=== PATIENT | male | born 1985 | race American Indian/Alaskan Native ===

== ENCOUNTER 2018-06-28 11:47 | Inpatient (IN) | payer MEDICAID ==
--- NOTE | 2018-06-28 11:51 | ED PDOC ---
Arrival/HPI <Julio Reynaga - Last Filed: 06/28/18 14:11> - General Historian: Patient - History of Present Illness Narrative History of Present Illness (Text): 06/28/18 11:51 Patient is a 32 yo homeless male with T1DM who presents with nausea and vomiting for the past 2 days. EMS reports that blood glucose reading is 'high." Patient lives at a snf. He says he has not been able to tolerate PO intake for the past 2 days. He feels thirsty and is urinating frequently. He does not check his blood glucose at home. He administers insulin 70/30 twice daily. He states he has been hospitalized for diabetes/DKA in the past. He endorses subjective fevers and chills. He has had a 15 lb unintentional weight loss over the past month. He also endorses diarrhea and heart racing for the past 2 days. Denies abdominal pain. Time/Duration: < week Symptom Onset: Gradual Symptom Course: Worsening <Fabienne Lizama - Last Filed: 06/28/18 14:27> - General Chief Complaint: High Blood Sugar Time Seen by Provider: 06/28/18 11:50 Past Medical History - Provider Review Nursing Documentation Reviewed: Yes Primary Care Provider: Fred Mahan <Fabienne Lizama - Last Filed: 06/28/18 14:27> Family/Social History - Physician Review Nursing Documentation Reviewed: Yes Family/Social History: Unknown Family HX Smoking Status: Never Smoked Hx Alcohol Use: No Hx Substance Use: No <Fabienne Lizama - Last Filed: 06/28/18 14:27> Allergies/Home Meds <Julio Reynaga - Last Filed: 06/28/18 14:11> <Fabienne Lizama - Last Filed: 06/28/18 14:27> Allergies/Adverse Reactions: Allergies No Known Allergies Allergy (Verified 06/28/18 11:51) Home Medications: Home Meds Medication Instructions Recorded Confirmed Insulin Lispro Mix 75/25 [HumaLOG 18 units SC QPM 06/28/18 06/28/18 Mix 75/25] Insulin Lispro Mix 75/25 [HumaLOG 22 unit SC QAM 06/28/18 06/28/18 Mix 75/25] Review of Systems - Review of Systems Constitutional: Weight Change, Fevers Eyes: absent: Vision Changes ENT: absent: Hearing Changes, Tinnitus Respiratory: absent: SOB, Cough Cardiovascular: Palpitations. absent: Chest Pain Gastrointestinal: Diarrhea, Nausea, Vomiting. absent: Abdominal Pain, Constipation, Hematochezia Genitourinary Male: absent: Dysuria, Hematuria Musculoskeletal: absent: Arthralgias, Myalgias Skin: Pruritis, Skin Lesions (round patches on arms, intermittently pruritic) Neurological: absent: Headache, Dizziness, Focal Weakness Endocrine: absent: Diaphoresis Hemo/Lymphatic: absent: Adenopathy <Fabienne Lizama - Last Filed: 06/28/18 14:27> Physical Exam Vital Signs Temp Pulse Resp BP Pulse Ox 06/28/18 11:47 98.0 F 102 H 16 106/67 99 <Julio Reynaga - Last Filed: 06/28/18 14:11> Vital Signs Reviewed: Yes Temperature: Afebrile Blood Pressure: Normal Pulse: Tachycardic Respiratory Rate: Normal Appearance: Positive for: Comfortable, Ill-Appearing Pain Distress: None Mental Status: Positive for: Alert and Oriented X 3 - Systems Exam Head: Present: Atraumatic, Normocephalic Pupils: Present: PERRL Extroacular Muscles: Present: EOMI Conjunctiva: Present: Normal Mouth: Present: Dry Neck: Present: Normal Range of Motion. No: Lymphadenopathy Respiratory/Chest: Present: Clear to Auscultation, Good Air Exchange Cardiovascular: Present: Normal S1, S2, Tachycardic. No: Murmurs Abdomen: No: Tenderness, Distention, Peritoneal Signs Back: Present: Normal Inspection Upper Extremity: Present: NORMAL PULSES, Other (dry jamil flat patches on UE b/l, no bleeding/drainage) Lower Extremity: Present: Normal Inspection, Neurovascularly Intact Neurological: Present: GCS=15, CN II-XII Intact, Speech Normal, Motor Func Grossly Intact, Normal Sensory Function Skin: Present: Warm, Dry, Normal Color Lymphatic: No: Cervical Adenopathy Psychiatric: Present: Alert, Oriented x 3, Normal Insight, Normal Concentration, Normal Affect, Normal Mood <Fabienne Lizama - Last Filed: 06/28/18 14:27> Medical Decision Making ED Course and Treatment: 06/28/18 14:[address] Weller(medical service) who accepts patient onto her service. Discussed clinical case with Dr. Edge(intensivost) who will come down and evaluate patient. - Lab Interpretations Lab Results: pCO2 40 mm/Hg (35-45) 06/28/18 12:20 pO2 89.0 mm/Hg (80-100) 06/28/18 12:20 HCO3 21.6 mmol/L (21-28) 06/28/18 12:20 ABG pH 7.34 (7.35-7.45) L 06/28/18 12:20 ABG Total CO2 22.8 mmol.L (22-28) 06/28/18 12:20 ABG O2 Saturation 98.4 % (95-98) H 06/28/18 12:20 ABG Base Excess -3.9 mmol/L (-2.0-3.0) L 06/28/18 12:20 ABG Potassium 4.1 mmol/L (3.6-5.2) 06/28/18 12:20 Sodium 141.0 mmol/L (132-148) 06/28/18 12:20 Chloride 100.0 mmol/L (98-107) 06/28/18 12:20 Glucose 629 mg/dl (75-110) H* 06/28/18 12:20 Lactate 2.9 mmol/L (0.7-2.1) H 06/28/18 12:20 FiO2 21.0 % 06/28/18 12:20 Crit Value Called To Dl whitt md 06/28/18 12:20 Crit Value Called By Héctor sargent 06/28/18 12:20 Blood Gas Notified Time 1224 06/28/18 12:20 Total Bilirubin 0.4 mg/dL (0.2-1.3) 06/28/18 12:34 AST 25 U/L (17-59) 06/28/18 12:34 ALT 27 U/L (7-56) 06/28/18 12:34 Alkaline Phosphatase 65 U/L (38-126) 06/28/18 12:34 Total Protein 7.0 g/dL (5.8-8.3) 06/28/18 12:34 Albumin 4.5 g/dL (3.0-4.8) 06/28/18 12:34 Globulin 2.5 gm/dL 06/28/18 12:34 Albumin/Globulin Ratio 1.8 (1.1-1.8) 06/28/18 12:34 Urine Color Yellow (YELLOW) 06/28/18 14:00 Urine Appearance Clear (CLEAR) 06/28/18 14:00 Urine pH 6.0 (4.7-8.0) 06/28/18 14:00 Ur Specific Reserve 1.015 (1.005-1.035) 06/28/18 14:00 Urine Protein 30 mg/dL (<30 mg/dL) H 06/28/18 14:00 Urine Glucose (UA) >=1000 mg/dL (NEGATIVE) 06/28/18 14:00 Urine Ketones 40 mg/dL (NEGATIVE) H 06/28/18 14:00 Urine Blood Small (NEGATIVE) H 06/28/18 14:00 Urine Nitrate Negative (NEGATIVE) 06/28/18 14:00 Urine Bilirubin Negative (NEGATIVE) 06/28/18 14:00 Urine Urobilinogen 0.2 E.U./dL (<1 E.U./dL) 06/28/18 14:00 Ur Leukocyte Esterase Negative [place]/uL (NEGATIVE) 06/28/18 14:00 - Medication Orders Current Medication Orders: Dextrose (Dextrose 50% Inj) 0 ml IV STAT PRN; Protocol PRN Reason: Hypoglycemia Protocol Dextrose (Dextrose 5% In Water 1000 Ml) 1,000 mls @ 0 mls/hr IV .Q0M PRN; Protocol PRN Reason: Hypoglycemia Protocol Insulin Human Regular 100 (units/ Sodium Chloride) 100 mls @ 1 mls/hr IV .Q24H PRN; Protocol PRN Reason: TITRATE PER MD ORDER Discontinued Medications Sodium Chloride (Sodium Chloride 0.9%) 1,000 mls @ 999 mls/hr IV .Q1H1M STA Stop: 06/28/18 13:09 Last Admin: 06/28/18 12:21 Dose: 999 mls/hr eMAR Start Stop Document 06/28/18 12:21 BB (Rec: 06/28/18 12:32 BB [id number]) Intravenous Solution Start Date 06/28/18 Start Time 12:32 Insulin Human Regular (Humulin R) 10 units SC STAT STA Stop: 06/28/18 12:10 Last Admin: 06/28/18 12:20 Dose: 10 unit MAR Blood Glucose Document 06/28/18 12:20 BB (Rec: 06/28/18 12:21 BB [id number]) Blood Glucose Finger Stick Blood Glucose (70-120) 500 Subcutaneous Administrations Document 06/28/18 12:20 BB (Rec: 06/28/18 12:21 BB [id number]) Injection Site MAR Injection Site Left Arm Charges for Administration # of Subcutaneous Administrations 1 <YoelVinnie oscaryl - Last Filed: 06/28/18 14:11> ED Course and Treatment: 06/28/18 12:14 IVF, insulin Labs, EKG 06/28/18 12:15 POC glucose >500 06/28/18 13:30 Anion gap 20. Will start insulin drip. 06/28/18 13:45 Spoke to hospitalist. Requested on-call doctor to be contacted for admission. Paged Dr. Weller. 06/28/18 14:06 ICU consulted- Dr. Edge. 06/28/18 14:16 Dr. Weller accepts patient for admission. 06/28/18 14:26 Patient accepted to ICU. Re-evaluation Time: 14:27 Reassessment Condition: Re-examined, Improving,but remains with symptoms - Lab Interpretations I have reviewed the lab results: Yes Interpretation: Abnormal lab values - EKG Interpretation EKG Interpretation (Text): 06/28/18 12:15 NSR, mildly peaked T waves Interpreted by ED Physician: Yes Type: 12 lead EKG Comparison: No previous EKG avail. <Fabienne Lizama - Last Filed: 06/28/18 14:27> Disposition/Present on Arrival - Disposition Have Diagnosis and Disposition been Completed?: Yes Disposition Time: 14:14 Patient Plan: ICU <YoeldayneJulio - Last Filed: 06/28/18 14:11> - Present on Arrival Any Indicators Present on Arrival: Yes History of DVT/PE: No History of Uncontrolled Diabetes: Yes Urinary Catheter: No History of Decub. Ulcer: No History Surgical Site Infection Following: None - Disposition Have Diagnosis and Disposition been Completed?: Yes Patient Plan: ICU <Fabienne Lizama - Last Filed: 06/28/18 14:27> - Disposition Diagnosis: DKA (diabetic ketoacidoses) Disposition: HOSPITALIZED Patient Problems: Current Active Problems Problem Status Onset DKA (diabetic ketoacidoses) Acute Condition: GUARDED Referrals: Fred Mahan MD [Primary Care Provider] - Follow up with primary Forms: Likeeds (Colombian)
[2018-06-28] MEDS ORDERED: Insulin Regular 1 UNITS/0.01 ML ML SC STA (12:09)
[2018-06-28] MEDS ORDERED: Sodium Chloride 0.9% 1,000 ML IV STA (12:09)
[2018-06-28] MEDS ORDERED: Dextrose 50% SYRINGE Inj (50 ml) IV PRN (12:09)
[2018-06-28 12:25] LABS: ARTERIAL BLOOD GAS HCO3 21.6 mmol/L (21-28); ARTERIAL BLOOD GAS O2 SAT 98.4 % (95-98); ARTERIAL BLOOD GAS PCO2 40 mm/Hg (35-45); ARTERIAL BLOOD GAS PH 7.34 (7.35-7.45); ARTERIAL BLOOD GAS TCO2 22.8 mmol.L (22-28)
[2018-06-28 13:00] LABS: BASO # 0.01 K/mm3 (0.0-2.0); BASO % 0.1 % (0.0-3.0); EOS % 0.1 % (1.5-5.0); HEMOGLOBIN 11.9 g/dL (14.0-18.0); LYMPH # 1.6 (1.2-3.4); LYMPH % 19.4 % (22.0-35.0); MEAN CELL VOLUME 85.4 fl (80.0-105.0); MEAN CORPUSCULAR HGB CONC 32.8 g/dl (31.0-37.0); MEAN PLATELET VOLUME 8.5 fl (7.0-11.0); MONO # 0.4 (0.1-0.6); RBC 4.25 10^6/uL (3.5-6.1); RED CELL DISTRIBUTION WIDTH 12.8 % (11.5-14.5); WHITE BLOOD COUNT 8.4 10^3/uL (4.5-11.0)
[2018-06-28 13:21] LABS: ALB/GLOB RATIO 1.8 (1.1-1.8); ALBUMIN 4.5 g/dL (3.0-4.8); ALT/SGPT 27 U/L (7-56); AST/SGOT 25 U/L (17-59); BLOOD UREA NITROGEN 36 mg/dL (7-21); CALCIUM 10.1 mg/dL (8.4-10.5); GFR NON-AFRICAN AMERICAN > 60
[2018-06-28] MEDS ORDERED: Insulin Regular 100 UNITS in Sodium Chloride 0.9% 99 ML IV PRN (13:31)
[2018-06-28 14:07] LABS: URINE BILIRUBIN NEGATIVE (NEGATIVE); URINE BLOOD SMALL (NEGATIVE); URINE GLUCOSE (UA) >=1000 mg/dL (NEGATIVE); URINE LEUKOCYTE ESTERASE NEGATIVE Leu/uL (NEGATIVE); URINE PROTEIN 30 mg/dL (<30 mg/dL); URINE UROBILINOGEN 0.2 E.U./dL (<1 E.U./dL)
[2018-06-28 14:09] LABS: URINE APPEARANCE CLEAR (CLEAR); URINE COLOR YELLOW (YELLOW)
[2018-06-28 14:23] LABS: URINE BACTERIA SMALL /hpf; URINE WBC 0 - 2 /hpf (0-6)
[2018-06-28 14:28] LABS: BARBITURATES, UR NEGATIVE (NEGATIVE); BENZODIAZEPINES, UR NEGATIVE (NEGATIVE); OPIATES, UR NEGATIVE (NEGATIVE); PHENCYCLIDINE, UR NEGATIVE (NEGATIVE)
[2018-06-28] MEDS ORDERED: Sodium Chloride 0.9% 1,000 ML IV SCH (16:00)
[2018-06-28 16:49] LABS: VENOUS BLOOD GAS BASE EXCESS 9.5 mmol/L (0.0-2.0); VENOUS BLOOD GAS PO2 25 mm/Hg (30-55)
[2018-06-28 17:24] LABS: BLOOD UREA NITROGEN 34 mg/dL (7-21); CALCIUM 9.5 mg/dL (8.4-10.5); GFR NON-AFRICAN AMERICAN > 60
[2018-06-28 17:25] VITALS: BMI 21.3
[2018-06-28] MEDS ORDERED: Dextrose 5%/0.9% NS 1,000 ML IV SCH (17:30)
[2018-06-28 19:57] LABS: VENOUS BLOOD GAS BASE EXCESS 7.3 mmol/L (0.0-2.0); VENOUS BLOOD GAS PO2 36 mm/Hg (30-55); VENOUS BLOOD PH 7.38 (7.32-7.43)
[2018-06-28 20:06] LABS: BLOOD UREA NITROGEN 31 mg/dL (7-21); GFR NON-AFRICAN AMERICAN > 60
--- NOTE | 2018-06-28 21:28 | CP.PCM.HP ---
<HeribertoLobo - Last Filed: 06/28/18 21:41> History of Present Illness - History of Present Illness History of Present Illness: Lobo Louis DO PGY1 - Internal Medicine Academic Support Assistant - Hospitalist H&P Patient is a 32M w/ a PMH of DM (unspecified T1 vs T2) who presented to [facility] on [facility] w/ complaints of N/V and dec appetite. Upon presentation patient reported he has been having increased urination and multiple episodes of NBNB emesis over the past 2 days. He reports that 3 days ago he head run out of his insulin. 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 Fajardo in [place] - unable to provide contact in formation or address Present on Admission - Present on Admission Any Indicators Present on Admission: No Review of Systems - Review of Systems All systems: reviewed and no additional remarkable complaints except Review of Systems: as per HPI Past Patient History - Past Social History Smoking Status: Never Smoked - CARDIAC Hx Cardiac Disorders: No - PULMONARY Hx Respiratory Disorders: No - NEUROLOGICAL Hx Neurological Disorder: No - HEENT Other/Comment: Astigmatism - RENAL Hx Chronic Kidney Disease: No - ENDOCRINE/METABOLIC Hx Diabetes Mellitus Type 1: Yes - HEMATOLOGICAL/ONCOLOGICAL Hx Blood Disorders: No - INTEGUMENTARY Hx Dermatological Problems: No - MUSCULOSKELETAL/RHEUMATOLOGICAL Hx Musculoskeletal Disorders: No Hx Falls: No - GASTROINTESTINAL Hx Gastrointestinal Disorders: No - GENITOURINARY/GYNECOLOGICAL Hx Genitourinary Disorders: No - PSYCHIATRIC Hx Psychophysiologic Disorder: No Hx Substance Use: No - SURGICAL HISTORY Hx Surgeries: No Meds Allergies/Adverse Reactions: Allergies Allergy/AdvReac Type Severity Reaction Status Date / Time No Known Allergies Allergy Verified 06/28/18 11:51 Physical Exam - Constitutional Appears: Well, Non-toxic, No Acute Distress - Head Exam Head Exam: ATRAUMATIC, NORMOCEPHALIC - Eye Exam Eye Exam: EOMI, Normal appearance, PERRL - Respiratory Exam Respiratory Exam: Clear to Auscultation Bilateral, NORMAL BREATHING PATTERN - Cardiovascular Exam Cardiovascular Exam: REGULAR RHYTHM. absent: Systolic Murmur - GI/Abdominal Exam GI & Abdominal Exam: Normal Bowel Sounds, Soft. absent: Tenderness - Extremities Exam Extremities exam: Positive for: normal inspection. Negative for: pedal edema, pedal pulses present - Back Exam Back exam: absent: CVA tenderness (L), CVA tenderness (R) - Neurological Exam Neurological exam: Alert, CN II-XII Intact, Oriented x3 - Psychiatric Exam Psychiatric exam: Normal Affect, Normal Mood - Skin Skin Exam: Dry, Intact, Normal Color, Warm Results - Vital Signs Recent Vital Signs: Last Vital Signs Temp 97.8 F 06/28/18 17:09 Pulse 103 H 06/28/18 18:40 Resp 16 06/28/18 18:40 BP 135/104 H 06/28/18 18:00 Pulse Ox 100 06/28/18 18:40 - Labs Result Diagrams: 06/28/18 12:34 06/28/18 19:45 Labs: Laboratory Results - last 24 hr 06/28/18 06/28/18 06/28/18 11:58 12:20 12:34 WBC 8.4 RBC 4.25 Hgb 11.9 L Hct 36.3 L MCV 85.4 MCH 28.0 MCHC 32.8 RDW 12.8 Plt Count 254 MPV 8.5 Neut % (Auto) 75.4 H Lymph % (Auto) 19.4 L [place] % (Auto) 5.0 Eos % (Auto) 0.1 L Baso % (Auto) 0.1 Lymph # (Auto) 1.6 [place] # (Auto) 0.4 Eos # (Auto) 0.0 Baso # (Auto) 0.01 Absolute Neuts (auto) 6.30 pCO2 40 pO2 89.0 HCO3 21.6 ABG pH 7.34 L ABG Total CO2 22.8 ABG O2 Saturation 98.4 H ABG Base Excess -3.9 L ABG Potassium 4.1 VBG pH VBG pCO2 VBG HCO3 VBG Total CO2 VBG O2 Sat (Calc) VBG Base Excess VBG Potassium Sodium 141.0 Chloride 100.0 Glucose 629 H* Lactate 2.9 H FiO2 21.0 Crit Value Called To Dl whitt md Crit Value Called By Héctor sargent Blood Gas Notified Time 1224 Potassium Carbon Dioxide Anion Gap BUN Creatinine Est GFR ( Amer) Est GFR (Non-Af Amer) POC Glucose (mg/dL) > 500 H* Random Glucose Calcium Phosphorus Magnesium Total Bilirubin AST ALT Alkaline Phosphatase Total Protein Albumin Globulin Albumin/Globulin Ratio Arterial Blood Potassium 4.1 Venous Blood Potassium Urine Color Urine Appearance Urine pH Ur Specific [place] Urine Protein Urine Glucose (UA) Urine Ketones Urine Blood Urine Nitrate Urine Bilirubin Urine Urobilinogen Ur Leukocyte Esterase Urine RBC Urine WBC Ur Epithelial Cells Urine Bacteria Urine Opiates Screen Urine Methadone Screen Ur Barbiturates Screen Ur Phencyclidine Scrn Ur Amphetamines Screen U Benzodiazepines Scrn U Oth Cocaine Metabols U Cannabinoids Screen Alcohol, Quantitative B-Hydroxybutyrate 06/28/18 06/28/18 06/28/18 12:34 12:34 14:00 WBC RBC Hgb Hct MCV MCH MCHC RDW Plt Count MPV Neut % (Auto) Lymph % (Auto) [place] % (Auto) Eos % (Auto) Baso % (Auto) Lymph # (Auto) [place] # (Auto) Eos # (Auto) Baso # (Auto) Absolute Neuts (auto) pCO2 pO2 HCO3 ABG pH ABG Total CO2 ABG O2 Saturation ABG Base Excess ABG Potassium VBG pH VBG pCO2 VBG HCO3 VBG Total CO2 VBG O2 Sat (Calc) VBG Base Excess VBG Potassium Sodium 140 Chloride 97 L Glucose Lactate FiO2 Crit Value Called To Crit Value Called By Blood Gas Notified Time Potassium 5.0 Carbon Dioxide 23 Anion Gap 25 H BUN 36 H Creatinine 1.1 Est GFR ( Amer) > 60 Est GFR (Non-Af Amer) > 60 POC Glucose (mg/dL) Random Glucose 633 H* Calcium 10.1 Phosphorus 5.0 H Magnesium 2.0 Total Bilirubin 0.4 AST 25 ALT 27 Alkaline Phosphatase 65 Total Protein 7.0 Albumin 4.5 Globulin 2.5 Albumin/Globulin Ratio 1.8 Arterial Blood Potassium Venous Blood Potassium Urine Color Yellow Urine Appearance Clear Urine pH 6.0 Ur Specific [place] 1.015 Urine Protein 30 H Urine Glucose (UA) >=1000 Urine Ketones 40 H Urine Blood Small H Urine Nitrate Negative Urine Bilirubin Negative Urine Urobilinogen 0.2 Ur Leukocyte Esterase Negative Urine RBC 5 - 10 H Urine WBC 0 - 2 Ur Epithelial Cells None Urine Bacteria Small Urine Opiates Screen Urine Methadone Screen Ur Barbiturates Screen Ur Phencyclidine Scrn Ur Amphetamines Screen U Benzodiazepines Scrn U Oth Cocaine Metabols U Cannabinoids Screen Alcohol, Quantitative < 10 B-Hydroxybutyrate 4.39 H 06/28/18 06/28/18 06/28/18 14:00 14:30 15:34 WBC RBC Hgb Hct MCV MCH MCHC RDW Plt Count MPV Neut % (Auto) Lymph % (Auto) [place] % (Auto) Eos % (Auto) Baso % (Auto) Lymph # (Auto) [place] # (Auto) Eos # (Auto) Baso # (Auto) Absolute Neuts (auto) pCO2 pO2 HCO3 ABG pH ABG Total CO2 ABG O2 Saturation ABG Base Excess ABG Potassium VBG pH VBG pCO2 VBG HCO3 VBG Total CO2 VBG O2 Sat (Calc) VBG Base Excess VBG Potassium Sodium Chloride Glucose Lactate FiO2 Crit Value Called To Crit Value Called By Blood Gas Notified Time Potassium Carbon Dioxide Anion Gap BUN Creatinine Est GFR ( Amer) Est GFR (Non-Af Amer) POC Glucose (mg/dL) 442 H* 357 H Random Glucose Calcium Phosphorus Magnesium Total Bilirubin AST ALT Alkaline Phosphatase Total Protein Albumin Globulin Albumin/Globulin Ratio Arterial Blood Potassium Venous Blood Potassium Urine Color Urine Appearance Urine pH Ur Specific [place] Urine Protein Urine Glucose (UA) Urine Ketones Urine Blood Urine Nitrate Urine Bilirubin Urine Urobilinogen Ur Leukocyte Esterase Urine RBC Urine WBC Ur Epithelial Cells Urine Bacteria Urine Opiates Screen Negative Urine Methadone Screen Negative Ur Barbiturates Screen Negative Ur Phencyclidine Scrn Negative Ur Amphetamines Screen Negative U Benzodiazepines Scrn Negative U Oth Cocaine Metabols Negative U Cannabinoids Screen Positive H Alcohol, Quantitative B-Hydroxybutyrate 06/28/18 06/28/18 06/28/18 16:32 16:44 16:56 WBC RBC Hgb Hct MCV MCH MCHC RDW Plt Count MPV Neut % (Auto) Lymph % (Auto) [place] % (Auto) Eos % (Auto) Baso % (Auto) Lymph # (Auto) [place] # (Auto) Eos # (Auto) Baso # (Auto) Absolute Neuts (auto) pCO2 pO2 25 L HCO3 ABG pH ABG Total CO2 ABG O2 Saturation ABG Base Excess ABG Potassium VBG pH 7.40 VBG pCO2 59.0 VBG HCO3 36.5 H VBG Total CO2 38.3 H VBG O2 Sat (Calc) 60.0 VBG Base Excess 9.5 H VBG Potassium 4.1 Sodium 141.0 Chloride 101.0 Glucose 259 H Lactate 2.1 FiO2 21.0 Crit Value Called To Crit Value Called By Blood Gas Notified Time Potassium Carbon Dioxide Anion Gap BUN Creatinine Est GFR ( Amer) Est GFR (Non-Af Amer) POC Glucose (mg/dL) 264 H 227 H Random Glucose Calcium Phosphorus Magnesium Total Bilirubin AST ALT Alkaline Phosphatase Total Protein Albumin Globulin Albumin/Globulin Ratio Arterial Blood Potassium Venous Blood Potassium 4.1 Urine Color Urine Appearance Urine pH Ur Specific [place] Urine Protein Urine Glucose (UA) Urine Ketones Urine Blood Urine Nitrate Urine Bilirubin Urine Urobilinogen Ur Leukocyte Esterase Urine RBC Urine WBC Ur Epithelial Cells Urine Bacteria Urine Opiates Screen Urine Methadone Screen Ur Barbiturates Screen Ur Phencyclidine Scrn Ur Amphetamines Screen U Benzodiazepines Scrn U Oth Cocaine Metabols U Cannabinoids Screen Alcohol, Quantitative B-Hydroxybutyrate 06/28/18 06/28/18 06/28/18 17:00 17:47 18:56 WBC RBC Hgb Hct MCV MCH MCHC RDW Plt Count MPV Neut % (Auto) Lymph % (Auto) [place] % (Auto) Eos % (Auto) Baso % (Auto) Lymph # (Auto) [place] # (Auto) Eos # (Auto) Baso # (Auto) Absolute Neuts (auto) pCO2 pO2 HCO3 ABG pH ABG Total CO2 ABG O2 Saturation ABG Base Excess ABG Potassium VBG pH VBG pCO2 VBG HCO3 VBG Total CO2 VBG O2 Sat (Calc) VBG Base Excess VBG Potassium Sodium 141 Chloride 102 Glucose Lactate FiO2 Crit Value Called To Crit Value Called By Blood Gas Notified Time Potassium 3.9 Carbon Dioxide 30 Anion Gap 14 BUN 34 H Creatinine 0.9 Est GFR ( Amer) > 60 Est GFR (Non-Af Amer) > 60 POC Glucose (mg/dL) 156 H 153 H Random Glucose 168 H Calcium 9.5 Phosphorus Magnesium Total Bilirubin AST ALT Alkaline Phosphatase Total Protein Albumin Globulin Albumin/Globulin Ratio Arterial Blood Potassium Venous Blood Potassium Urine Color Urine Appearance Urine pH Ur Specific [place] Urine Protein Urine Glucose (UA) Urine Ketones Urine Blood Urine Nitrate Urine Bilirubin Urine Urobilinogen Ur Leukocyte Esterase Urine RBC Urine WBC Ur Epithelial Cells Urine Bacteria Urine Opiates Screen Urine Methadone Screen Ur Barbiturates Screen Ur Phencyclidine Scrn Ur Amphetamines Screen U Benzodiazepines Scrn U Oth Cocaine Metabols U Cannabinoids Screen Alcohol, Quantitative B-Hydroxybutyrate 06/28/18 06/28/18 06/28/18 19:45 19:45 20:15 WBC RBC Hgb Hct MCV MCH MCHC RDW Plt Count MPV Neut % (Auto) Lymph % (Auto) [place] % (Auto) Eos % (Auto) Baso % (Auto) Lymph # (Auto) [place] # (Auto) Eos # (Auto) Baso # (Auto) Absolute Neuts (auto) pCO2 pO2 36 HCO3 ABG pH ABG Total CO2 ABG O2 Saturation ABG Base Excess ABG Potassium VBG pH 7.38 VBG pCO2 58.0 VBG HCO3 34.3 H VBG Total CO2 36.1 H VBG O2 Sat (Calc) 84.2 H VBG Base Excess 7.3 H VBG Potassium 3.7 Sodium 140 140.0 Chloride 101 104.0 Glucose 176 H Lactate 2.1 FiO2 21.0 Crit Value Called To Crit Value Called By Blood Gas Notified Time Potassium 3.8 Carbon Dioxide 31 Anion Gap 11 BUN 31 H Creatinine 1.0 Est GFR ( Amer) > 60 Est GFR (Non-Af Amer) > 60 POC Glucose (mg/dL) 176 H Random Glucose 168 H Calcium 9.0 Phosphorus Magnesium Total Bilirubin AST ALT Alkaline Phosphatase Total Protein Albumin Globulin Albumin/Globulin Ratio Arterial Blood Potassium Venous Blood Potassium 3.7 Urine Color Urine Appearance Urine pH Ur Specific [place] Urine Protein Urine Glucose (UA) Urine Ketones Urine Blood Urine Nitrate Urine Bilirubin Urine Urobilinogen Ur Leukocyte Esterase Urine RBC Urine WBC Ur Epithelial Cells Urine Bacteria Urine Opiates Screen Urine Methadone Screen Ur Barbiturates Screen Ur Phencyclidine Scrn Ur Amphetamines Screen U Benzodiazepines Scrn U Oth Cocaine Metabols U Cannabinoids Screen Alcohol, Quantitative B-Hydroxybutyrate Assessment & Plan - Assessment and Plan (Free Text) Assessment: Patient is 32M who presented to [facility] on [facility] w/ 2 days of complaints of decreased appetite, n/v, polyuria, polydypsia after running out of his insulin 3 days ago. Patient admitted for DKA. Plan: DKA (Unspecified Type 1 vs Type 2) AG on presentation 20; Glucose 633 AG closed @ 1700; Upon evaluation 168 Currently on Insulin Drip + D5NS ; has only received 20 units at this itme Has already started diet at time of evaluation Will DC Insulin drip in 2 hours Start Levemir 5 Q 12 DC D5; Start NS POC BG Q2H Follow up w/ outpt pharmacy regarding insulin regimen Endocrinology Consulted, Appreciate Reccs PPX: SCD Patient was seen, examined, and discussed w/ attending Dr. Atul Louis DO PGY1 - Internal Medicine Academic Support Assistant - Date & Time Date: 06/28/18 Time: 21:47 <Neil Pollard - Last Filed: 06/29/18 02:13> Results - Vital Signs Recent Vital Signs: Last Vital Signs Temp 98.5 F 06/29/18 00:00 Pulse 96 H 06/29/18 01:10 Resp 18 06/29/18 01:10 BP 124/77 06/29/18 01:00 Pulse Ox 100 06/29/18 01:10 - Labs Result Diagrams: 06/28/18 12:34 06/29/18 00:02 Labs: Laboratory Results - last 24 hr 06/28/18 06/28/18 06/28/18 11:58 12:20 12:34 WBC 8.4 RBC 4.25 Hgb 11.9 L Hct 36.3 L MCV 85.4 MCH 28.0 MCHC 32.8 RDW 12.8 Plt Count 254 MPV 8.5 Neut % (Auto) 75.4 H Lymph % (Auto) 19.4 L [place] % (Auto) 5.0 Eos % (Auto) 0.1 L Baso % (Auto) 0.1 Lymph # (Auto) 1.6 [place] # (Auto) 0.4 Eos # (Auto) 0.0 Baso # (Auto) 0.01 Absolute Neuts (auto) 6.30 pCO2 40 pO2 89.0 HCO3 21.6 ABG pH 7.34 L ABG Total CO2 22.8 ABG O2 Saturation 98.4 H ABG Base Excess -3.9 L ABG Potassium 4.1 VBG pH VBG pCO2 VBG HCO3 VBG Total CO2 VBG O2 Sat (Calc) VBG Base Excess VBG Potassium Sodium 141.0 Chloride 100.0 Glucose 629 H* Lactate 2.9 H FiO2 21.0 Crit Value Called To Dl whitt md Crit Value Called By Héctor sargent Blood Gas Notified Time 1224 Potassium Carbon Dioxide Anion Gap BUN Creatinine Est GFR ( Amer) Est GFR (Non-Af Amer) POC Glucose (mg/dL) > 500 H* Random Glucose Calcium Phosphorus Magnesium Total Bilirubin AST ALT Alkaline Phosphatase Total Protein Albumin Globulin Albumin/Globulin Ratio Arterial Blood Potassium 4.1 Venous Blood Potassium Urine Color Urine Appearance Urine pH Ur Specific [place] Urine Protein Urine Glucose (UA) Urine Ketones Urine Blood Urine Nitrate Urine Bilirubin Urine Urobilinogen Ur Leukocyte Esterase Urine RBC Urine WBC Ur Epithelial Cells Urine Bacteria Urine Opiates Screen Urine Methadone Screen Ur Barbiturates Screen Ur Phencyclidine Scrn Ur Amphetamines Screen U Benzodiazepines Scrn U Oth Cocaine Metabols U Cannabinoids Screen Alcohol, Quantitative B-Hydroxybutyrate 06/28/18 06/28/18 06/28/18 12:34 12:34 14:00 WBC RBC Hgb Hct MCV MCH MCHC RDW Plt Count MPV Neut % (Auto) Lymph % (Auto) [place] % (Auto) Eos % (Auto) Baso % (Auto) Lymph # (Auto) [place] # (Auto) Eos # (Auto) Baso # (Auto) Absolute Neuts (auto) pCO2 pO2 HCO3 ABG pH ABG Total CO2 ABG O2 Saturation ABG Base Excess ABG Potassium VBG pH VBG pCO2 VBG HCO3 VBG Total CO2 VBG O2 Sat (Calc) VBG Base Excess VBG Potassium Sodium 140 Chloride 97 L Glucose Lactate FiO2 Crit Value Called To Crit Value Called By Blood Gas Notified Time Potassium 5.0 Carbon Dioxide 23 Anion Gap 25 H BUN 36 H Creatinine 1.1 Est GFR ( Amer) > 60 Est GFR (Non-Af Amer) > 60 POC Glucose (mg/dL) Random Glucose 633 H* Calcium 10.1 Phosphorus 5.0 H Magnesium 2.0 Total Bilirubin 0.4 AST 25 ALT 27 Alkaline Phosphatase 65 Total Protein 7.0 Albumin 4.5 Globulin 2.5 Albumin/Globulin Ratio 1.8 Arterial Blood Potassium Venous Blood Potassium Urine Color Yellow Urine Appearance Clear Urine pH 6.0 Ur Specific [place] 1.015 Urine Protein 30 H Urine Glucose (UA) >=1000 Urine Ketones 40 H Urine Blood Small H Urine Nitrate Negative Urine Bilirubin Negative Urine Urobilinogen 0.2 Ur Leukocyte Esterase Negative Urine RBC 5 - 10 H Urine WBC 0 - 2 Ur Epithelial Cells None Urine Bacteria Small Urine Opiates Screen Urine Methadone Screen Ur Barbiturates Screen Ur Phencyclidine Scrn Ur Amphetamines Screen U Benzodiazepines Scrn U Oth Cocaine Metabols U Cannabinoids Screen Alcohol, Quantitative < 10 B-Hydroxybutyrate 4.39 H 06/28/18 06/28/18 06/28/18 14:00 14:30 15:34 WBC RBC Hgb Hct MCV MCH MCHC RDW Plt Count MPV Neut % (Auto) Lymph % (Auto) [place] % (Auto) Eos % (Auto) Baso % (Auto) Lymph # (Auto) [place] # (Auto) Eos # (Auto) Baso # (Auto) Absolute Neuts (auto) pCO2 pO2 HCO3 ABG pH ABG Total CO2 ABG O2 Saturation ABG Base Excess ABG Potassium VBG pH VBG pCO2 VBG HCO3 VBG Total CO2 VBG O2 Sat (Calc) VBG Base Excess VBG Potassium Sodium Chloride Glucose Lactate FiO2 Crit Value Called To Crit Value Called By Blood Gas Notified Time Potassium Carbon Dioxide Anion Gap BUN Creatinine Est GFR ( Amer) Est GFR (Non-Af Amer) POC Glucose (mg/dL) 442 H* 357 H Random Glucose Calcium Phosphorus Magnesium Total Bilirubin AST ALT Alkaline Phosphatase Total Protein Albumin Globulin Albumin/Globulin Ratio Arterial Blood Potassium Venous Blood Potassium Urine Color Urine Appearance Urine pH Ur Specific [place] Urine Protein Urine Glucose (UA) Urine Ketones Urine Blood Urine Nitrate Urine Bilirubin Urine Urobilinogen Ur Leukocyte Esterase Urine RBC Urine WBC Ur Epithelial Cells Urine Bacteria Urine Opiates Screen Negative Urine Methadone Screen Negative Ur Barbiturates Screen Negative Ur Phencyclidine Scrn Negative Ur Amphetamines Screen Negative U Benzodiazepines Scrn Negative U Oth Cocaine Metabols Negative U Cannabinoids Screen Positive H Alcohol, Quantitative B-Hydroxybutyrate 06/28/18 06/28/18 06/28/18 16:32 16:44 16:56 WBC RBC Hgb Hct MCV MCH MCHC RDW Plt Count MPV Neut % (Auto) Lymph % (Auto) [place] % (Auto) Eos % (Auto) Baso % (Auto) Lymph # (Auto) [place] # (Auto) Eos # (Auto) Baso # (Auto) Absolute Neuts (auto) pCO2 pO2 25 L HCO3 ABG pH ABG Total CO2 ABG O2 Saturation ABG Base Excess ABG Potassium VBG pH 7.40 VBG pCO2 59.0 VBG HCO3 36.5 H VBG Total CO2 38.3 H VBG O2 Sat (Calc) 60.0 VBG Base Excess 9.5 H VBG Potassium 4.1 Sodium 141.0 Chloride 101.0 Glucose 259 H Lactate 2.1 FiO2 21.0 Crit Value Called To Crit Value Called By Blood Gas Notified Time Potassium Carbon Dioxide Anion Gap BUN Creatinine Est GFR ( Amer) Est GFR (Non-Af Amer) POC Glucose (mg/dL) 264 H 227 H Random Glucose Calcium Phosphorus Magnesium Total Bilirubin AST ALT Alkaline Phosphatase Total Protein Albumin Globulin Albumin/Globulin Ratio Arterial Blood Potassium Venous Blood Potassium 4.1 Urine Color Urine Appearance Urine pH Ur Specific [place] Urine Protein Urine Glucose (UA) Urine Ketones Urine Blood Urine Nitrate Urine Bilirubin Urine Urobilinogen Ur Leukocyte Esterase Urine RBC Urine WBC Ur Epithelial Cells Urine Bacteria Urine Opiates Screen Urine Methadone Screen Ur Barbiturates Screen Ur Phencyclidine Scrn Ur Amphetamines Screen U Benzodiazepines Scrn U Oth Cocaine Metabols U Cannabinoids Screen Alcohol, Quantitative B-Hydroxybutyrate 06/28/18 06/28/18 06/28/18 17:00 17:47 18:56 WBC RBC Hgb Hct MCV MCH MCHC RDW Plt Count MPV Neut % (Auto) Lymph % (Auto) [place] % (Auto) Eos % (Auto) Baso % (Auto) Lymph # (Auto) [place] # (Auto) Eos # (Auto) Baso # (Auto) Absolute Neuts (auto) pCO2 pO2 HCO3 ABG pH ABG Total CO2 ABG O2 Saturation ABG Base Excess ABG Potassium VBG pH VBG pCO2 VBG HCO3 VBG Total CO2 VBG O2 Sat (Calc) VBG Base Excess VBG Potassium Sodium 141 Chloride 102 Glucose Lactate FiO2 Crit Value Called To Crit Value Called By Blood Gas Notified Time Potassium 3.9 Carbon Dioxide 30 Anion Gap 14 BUN 34 H Creatinine 0.9 Est GFR ( Amer) > 60 Est GFR (Non-Af Amer) > 60 POC Glucose (mg/dL) 156 H 153 H Random Glucose 168 H Calcium 9.5 Phosphorus Magnesium Total Bilirubin AST ALT Alkaline Phosphatase Total Protein Albumin Globulin Albumin/Globulin Ratio Arterial Blood Potassium Venous Blood Potassium Urine Color Urine Appearance Urine pH Ur Specific [place] Urine Protein Urine Glucose (UA) Urine Ketones Urine Blood Urine Nitrate Urine Bilirubin Urine Urobilinogen Ur Leukocyte Esterase Urine RBC Urine WBC Ur Epithelial Cells Urine Bacteria Urine Opiates Screen Urine Methadone Screen Ur Barbiturates Screen Ur Phencyclidine Scrn Ur Amphetamines Screen U Benzodiazepines Scrn U Oth Cocaine Metabols U Cannabinoids Screen Alcohol, Quantitative B-Hydroxybutyrate 06/28/18 06/28/18 06/28/18 19:45 19:45 20:15 WBC RBC Hgb Hct MCV MCH MCHC RDW Plt Count MPV Neut % (Auto) Lymph % (Auto) [place] % (Auto) Eos % (Auto) Baso % (Auto) Lymph # (Auto) [place] # (Auto) Eos # (Auto) Baso # (Auto) Absolute Neuts (auto) pCO2 pO2 36 HCO3 ABG pH ABG Total CO2 ABG O2 Saturation ABG Base Excess ABG Potassium VBG pH 7.38 VBG pCO2 58.0 VBG HCO3 34.3 H VBG Total CO2 36.1 H VBG O2 Sat (Calc) 84.2 H VBG Base Excess 7.3 H VBG Potassium 3.7 Sodium 140 140.0 Chloride 101 104.0 Glucose 176 H Lactate 2.1 FiO2 21.0 Crit Value Called To Crit Value Called By Blood Gas Notified Time Potassium 3.8 Carbon Dioxide 31 Anion Gap 11 BUN 31 H Creatinine 1.0 Est GFR ( Amer) > 60 Est GFR (Non-Af Amer) > 60 POC Glucose (mg/dL) 176 H Random Glucose 168 H Calcium 9.0 Phosphorus Magnesium Total Bilirubin AST ALT Alkaline Phosphatase Total Protein Albumin Globulin Albumin/Globulin Ratio Arterial Blood Potassium Venous Blood Potassium 3.7 Urine Color Urine Appearance Urine pH Ur Specific [place] Urine Protein Urine Glucose (UA) Urine Ketones Urine Blood Urine Nitrate Urine Bilirubin Urine Urobilinogen Ur Leukocyte Esterase Urine RBC Urine WBC Ur Epithelial Cells Urine Bacteria Urine Opiates Screen Urine Methadone Screen Ur Barbiturates Screen Ur Phencyclidine Scrn Ur Amphetamines Screen U Benzodiazepines Scrn U Oth Cocaine Metabols U Cannabinoids Screen Alcohol, Quantitative B-Hydroxybutyrate 06/28/18 06/28/18 06/29/18 20:58 22:02 00:02 WBC RBC Hgb Hct MCV MCH MCHC RDW Plt Count MPV Neut % (Auto) Lymph % (Auto) [place] % (Auto) Eos % (Auto) Baso % (Auto) Lymph # (Auto) [place] # (Auto) Eos # (Auto) Baso # (Auto) Absolute Neuts (auto) pCO2 pO2 HCO3 ABG pH ABG Total CO2 ABG O2 Saturation ABG Base Excess ABG Potassium VBG pH VBG pCO2 VBG HCO3 VBG Total CO2 VBG O2 Sat (Calc) VBG Base Excess VBG Potassium Sodium 137 Chloride 103 Glucose Lactate FiO2 Crit Value Called To Crit Value Called By Blood Gas Notified Time Potassium 4.3 Carbon Dioxide 27 Anion Gap 10 BUN 27 H Creatinine 0.8 Est GFR ( Amer) > 60 Est GFR (Non-Af Amer) > 60 POC Glucose (mg/dL) 152 H 143 H Random Glucose 300 H Calcium 8.9 Phosphorus Magnesium Total Bilirubin AST ALT Alkaline Phosphatase Total Protein Albumin Globulin Albumin/Globulin Ratio Arterial Blood Potassium Venous Blood Potassium Urine Color Urine Appearance Urine pH Ur Specific [place] Urine Protein Urine Glucose (UA) Urine Ketones Urine Blood Urine Nitrate Urine Bilirubin Urine Urobilinogen Ur Leukocyte Esterase Urine RBC Urine WBC Ur Epithelial Cells Urine Bacteria Urine Opiates Screen Urine Methadone Screen Ur Barbiturates Screen Ur Phencyclidine Scrn Ur Amphetamines Screen U Benzodiazepines Scrn U Oth Cocaine Metabols U Cannabinoids Screen Alcohol, Quantitative B-Hydroxybutyrate 06/29/18 06/29/18 06/29/18 00:02 00:10 01:53 WBC RBC Hgb Hct MCV MCH MCHC RDW Plt Count MPV Neut % (Auto) Lymph % (Auto) [place] % (Auto) Eos % (Auto) Baso % (Auto) Lymph # (Auto) [place] # (Auto) Eos # (Auto) Baso # (Auto) Absolute Neuts (auto) pCO2 pO2 120 H HCO3 ABG pH ABG Total CO2 ABG O2 Saturation ABG Base Excess ABG Potassium VBG pH 7.43 VBG pCO2 46.0 VBG HCO3 30.5 H VBG Total CO2 31.9 H VBG O2 Sat (Calc) 99.6 H VBG Base Excess 5.3 H VBG Potassium 4.2 Sodium 137.0 Chloride 105.0 Glucose 317 H Lactate 1.0 FiO2 21.0 Crit Value Called To Crit Value Called By Blood Gas Notified Time Potassium Carbon Dioxide Anion Gap BUN Creatinine Est GFR ( Amer) Est GFR (Non-Af Amer) POC Glucose (mg/dL) 325 H 258 H Random Glucose Calcium Phosphorus Magnesium Total Bilirubin AST ALT Alkaline Phosphatase Total Protein Albumin Globulin Albumin/Globulin Ratio Arterial Blood Potassium Venous Blood Potassium 4.2 Urine Color Urine Appearance Urine pH Ur Specific [place] Urine Protein Urine Glucose (UA) Urine Ketones Urine Blood Urine Nitrate Urine Bilirubin Urine Urobilinogen Ur Leukocyte Esterase Urine RBC Urine WBC Ur Epithelial Cells Urine Bacteria Urine Opiates Screen Urine Methadone Screen Ur Barbiturates Screen Ur Phencyclidine Scrn Ur Amphetamines Screen U Benzodiazepines Scrn U Oth Cocaine Metabols U Cannabinoids Screen Alcohol, Quantitative B-Hydroxybutyrate Attending/Attestation - Attestation I have personally seen and examined this patient.: Yes I have fully participated in the care of the patient.: Yes I have reviewed all pertinent clinical information: Yes Notes (Text): 06/29/18 02:12 Patient was seen when he was in the room # 310-07. Medical record was reviewed. Agree with history,physical examination, assessment and plan.
[2018-06-28] MEDS ORDERED: Insulin Detemir 100 units/ml Vial (Levemir) SC SCH (22:00)
[2018-06-29] MEDS ORDERED: Insulin Lispro 1 UNITS/0.01 ML SC STA (00:20)
[2018-06-29 00:33] LABS: BLOOD UREA NITROGEN 27 mg/dL (7-21); CALCIUM 8.9 mg/dL (8.4-10.5); GFR NON-AFRICAN AMERICAN > 60
[2018-06-29] MEDS ORDERED: Dextrose 5%/0.9% NS 1,000 ML IV SCH (00:47)
[2018-06-29 00:49] LABS: VENOUS BLOOD GAS BASE EXCESS 5.3 mmol/L (0.0-2.0); VENOUS BLOOD GAS PO2 120 mm/Hg (30-55); VENOUS BLOOD PH 7.43 (7.32-7.43)
--- NOTE | 2018-06-29 01:18 | CON ---
DATE OF CONSULTATION: 06/28/2018 HISTORY OF PRESENT ILLNESS: This is a 32-year-old gentleman with history of diabetes mellitus type 1, who was admitted to [facility] ER with complaints of nausea, vomiting, and diarrhea for the last two days. He also reports subjective fever, however, when he measured it, he was normothermic. He denies any sick contacts and any change in his diet recently. He, however, was not able to keep anything down and describes himself as dehydrated. No chills, no sweats. No shortness of breath, no chest pain, no abdominal pain. PAST MEDICAL HISTORY: Diabetes mellitus type 1. MEDICATIONS AT HOME: Aspirin, metformin, and insulin. FAMILY HISTORY: Noncontributory. SOCIAL HISTORY: No alcohol or illicit drug abuse. No tobacco smoking. ALLERGIES: NKDA. REVIEW OF SYSTEMS: Review of 12-organ system other than mentioned in history of present illness is negative. PHYSICAL EXAMINATION: VITAL SIGNS: Blood pressure 119/66, heart rate 98, respiratory rate 18, oxygen saturation 100% on room air. HEENT: Head and neck atraumatic. LUNGS: Clear to auscultation bilaterally. HEART: Regular rate and rhythm, S1 and S2 normal. ABDOMEN: Soft, nontender, nondistended. MUSCULOSKELETAL: No C/C/E. NEURO: The patient moves all extremities spontaneously. SKIN: Moist. PSYCH: The patient is alert, awake, and oriented x3. LABORATORY DATA: WBC 8.4, hemoglobin 11.9, platelet count 254. Sodium 140, potassium 5, chloride 97, carbon dioxide 23, BUN 36, creatinine 1.1, glucose 633, AST 25, ALT 27, total bilirubin 0.4. Urine positive for ketones, glucose, but negative for leukocyte esterase and nitrites. U-tox positive for marijuana. Alcohol less than 10. Lactic acid 2.9. PH 7.34. ASSESSMENT AND PLAN: This is a 32-year-old gentleman who presented with diabetic ketoacidosis in the setting of nausea, vomiting, diarrhea, and substantial dehydration. Whether or not his gastrointestinal symptoms are related to marijuana use is unclear; however, he does not have leukocytosis and he is afebrile. His abdominal exam is absolutely benign. I have low suspicion for infectious process at the present time. We will continue with fluid resuscitation, insulin drip, Accu-Chek every 1 hour, and BMP every 4 hours. Once the anion gap is closed, he will be overlapped with and later switched to longer-acting formulation of subcutaneous insulin. Once his blood glucose drops down below 250, his IV fluids will be switched to D5 containing IV solutions. If his lactic acidosis will not resolve with fluid resuscitation and insulin drip, I will proceed with CAT scan of the abdomen and pelvis. We will trend lactic acid level. ccm time 40 min Chris Edge MD NIKITA
[2018-06-29 05:04] LABS: LDL CHOLESTEROL 66 mg/dL (0-129)
[2018-06-29 05:07] LABS: ALB/GLOB RATIO 1.4 (1.1-1.8); ALBUMIN 3.7 g/dL (3.0-4.8); ALT/SGPT 31 U/L (7-56); AST/SGOT 26 U/L (17-59); BLOOD UREA NITROGEN 22 mg/dL (7-21); CALCIUM 9.1 mg/dL (8.4-10.5); GFR NON-AFRICAN AMERICAN > 60; HDL CHOLESTEROL 53 mg/dL (29-60); LIPASE 73 U/L (23-300)
[2018-06-29] MEDS ORDERED: Magnesium Sulfate 2 gm/50 ml 2 GM/50 ML BAG IVPB ONE (05:30)
--- NOTE | 2018-06-29 06:25 | CON ---
DATE: 06/28/2018 ENDOCRINOLOGY CONSULT LOCATION: ICU 129, room 7. HISTORY OF PRESENT ILLNESS: This is a 32-year-old male with known history of type 1 insulin-dependent diabetes, presenting here with intractable vomiting and associated severe nausea and dyspepsia with vague upper abdominal pains and is now being referred for diabetic evaluation and management. PAST MEDICAL HISTORY: History of type 1 insulin-dependent diabetes who apparently ran out of his insulin regimen over the last few days as noted. He has been diagnosed of type 1 insulin-dependent diabetes since age 6 and is currently using a mixed insulin with Humalog 75/25 with a dose of 22 units every morning and 18 units at dinner time. No recent home glucose monitoring levels have been undertaken, but admits to having hyperglycemic levels with glucose levels over 500 on the day of admission. FAMILY HISTORY: Positive for diabetes and hypertension. SOCIAL HISTORY: The patient has a supportive family. No known substance use. REVIEW OF SYSTEMS: Admits to generalized body weakness with progressive bouts of dizziness and lightheadedness, worse on the day of admission. Also admits to visual blurring and bifrontal headaches. No chest pains or palpitations, but admits to episodic shortness of breath, especially on exertion. His oral intake has been variable with nausea, dyspepsia, and supervening intractable vomiting episodes, with vague upper abdominal pains. Also admits to marked polyuria, nocturia, and polydipsia over the last two to three days prior to admission. PHYSICAL EXAMINATION: GENERAL: Average-built male in no apparent distress. VITAL SIGNS: Blood pressure 150/100; pulse of 90 beats per minute, regular; temperature 98; respirations 20; height is 5 feet 11 inches, weight is 163 pounds. HEENT: Head normocephalic. Eyes anicteric with pink conjunctivae. Funduscopy not possible at this time. Ears, nose, and throat otherwise normal. NECK: Supple. Thyroid gland is normal in size. No carotid bruits or any cervical adenopathy. CARDIOPULMONARY: Some adynamic precordium. S1, S2 are rapid and regular. LUNGS: Clear to auscultation. ABDOMEN: Flat, soft with positive bowel sounds. EXTREMITIES: No peripheral edema. Pulses are +2 bilaterally. LABORATORY DATA: Initial chemistries showed a BUN of 36, sodium 140, potassium 5, chloride 97, CO2 of 23, glucose 633, and creatinine 1.1. His initial fingerstick was over 500 mg/dL. His subsequent glucose levels have ranged from 153 to 176 mg/dL on the insulin drip as noted. His last CO2 is 31. ASSESSMENT: This is a 32-year-old male with recent uncontrolled type 1 insulin-dependent diabetes with recent drug omission, presenting here with hyperosmolar hyperglycemic state and mild ketosis and also concomitant dehydration with prerenal azotemia as noted thereof. PLAN OF MANAGEMENT: We will modify his current insulin regimen, actually safely discontinue the insulin drip as there was only very minimal acidosis on admission that he presented here with hyperosmolar hyperglycemic state as noted. It is quite common to see mild ketosis in the presence of hyperosmolar hyperglycemic state. We will modify his current insulin regimen and actually discontinue the insulin drip infusion as ordered. We will switch him over to a more physiologic basal and bolus insulin drug combination with Levemir to be started at 20 units subcu at bedtime daily to start tonight. We will also add Humalog given as 8 units subcu t.i.d. before meals to start tomorrow morning as ordered. We will modify the coverage scale to obviate hypoglycemia and detailed orders have been given. We will reinforce diabetic education and dietary instructions to include insulin self-administration and home glucose monitoring accordingly. We will continue the vigorous IV hydration as ordered and obtain serial chemistries and supplement accordingly as needed. We will follow. Usha Domingo MD
[2018-06-29] MEDS ORDERED: Potassium Chloride 20 mEq ER Tab PO ONE (08:00)
--- NOTE | 2018-06-29 08:11 | CP.CCUPN ---
<Avelino Mcguire - Last Filed: 06/29/18 10:05> CCU Subjective - Physician Review Subjective (Free Text): PGY-[address] ICU progress note for Dr Fields. Patient this morning stated he felt much better. He's tolerating his diet. Denied cp, abd pain, n/v, fevers, chills, diarrhea, thirst. 06/29/18 08:01 CCU Objective - Vital Signs / Intake & Output Vital Signs (Last 4 hours): Vital Signs Pulse Resp BP Pulse Ox 06/29/18 07:20 88 18 100 06/29/18 07:10 87 17 100 06/29/18 07:00 85 17 132/87 100 06/29/18 06:50 86 15 100 06/29/18 06:40 89 15 100 06/29/18 06:30 87 17 100 06/29/18 06:20 87 18 100 06/29/18 06:10 85 16 100 06/29/18 06:00 87 128/89 100 06/29/18 05:50 83 100 06/29/18 05:40 91 H 15 06/29/18 05:30 87 18 100 06/29/18 05:20 90 15 100 06/29/18 05:10 87 16 100 06/29/18 05:00 90 16 126/83 100 06/29/18 04:50 87 16 100 06/29/18 04:40 85 17 100 06/29/18 04:30 86 16 100 06/29/18 04:20 93 H 14 100 06/29/18 04:10 95 H 14 100 Intake and Output (Last 8hrs): Intake & Output 06/28/18 06/29/18 06/29/18 22:59 06:59 14:59 Intake Total 1963 1553 Output Total 600 Balance 1963 953 Weight 153 lb Intake: IV 1513 1353 Left Forearm 1500 1353 Oral 450 200 Output: Urine 600 Urine, Voided 600 - Physical Exam Head: Positive for: Atraumatic, Normocephalic Pupils: Positive for: PERRL Extroacular Muscles: Positive for: EOMI Conjunctiva: Positive for: Normal Mouth: Positive for: Moist Mucous Membranes Neck: Positive for: Normal Range of Motion. Negative for: Lymphadenopathy Respiratory/Chest: Positive for: Clear to Auscultation, Good Air Exchange Cardiovascular: Positive for: Regular Rate and Rhythm, Normal S1, S2. Negative for: Murmurs, Tachycardic, Bradycardic Abdomen: Positive for: Normal Bowel Sounds. Negative for: Tenderness, Distention, Peritoneal Signs Back: Positive for: Normal Inspection Upper Extremity: Positive for: NORMAL PULSES, Other (dry jamil flat patches on UE b/l, no bleeding/drainage) Lower Extremity: Positive for: Normal Inspection, Neurovascularly Intact Neurological: Positive for: GCS=15, CN II-XII Intact, Speech Normal, Motor Func Grossly Intact, Normal Sensory Function Skin: Positive for: Warm, Dry, Normal Color Lymphatic: Negative for: Cervical Adenopathy Psychiatric: Positive for: Alert, Oriented x 3, Normal Insight, Normal Concentration, Normal Affect, Normal Mood - Medications Active Medications: Active Medications Generic Name Dose Route Start Last Admin Trade Name Freq PRN Reason Stop Dose Admin Dextrose 0 ml 06/28/18 12:09 Dextrose 50% Inj IV STAT PRN Hypoglycemia Protocol Protocol Dextrose 1,000 mls @ 0 mls/hr 06/28/18 12:09 Dextrose 5% In Water 1000 Ml IV .Q0M PRN Hypoglycemia Protocol Protocol Per Protocol Insulin Detemir 20 unit 06/29/18 22:00 Levemir SC HS ALMA Insulin Human Lispro 0 units 06/29/18 07:30 Humalog Low SC ACHS ALMA Protocol Insulin Human Lispro 8 units 06/29/18 07:30 Humalog SC AC ALMA - Patient Studies Lab Studies: Lab Studies 06/29/18 06/29/18 06/29/18 Range/Units 05:59 04:15 04:15 WBC (4.5-11.0) 10^3/uL RBC (3.5-6.1) 10^6/uL Hgb (14.0-18.0) g/dL Hct (42.0-52.0) % MCV (80.0-105.0) fl MCH (25.0-35.0) pg MCHC (31.0-37.0) g/dl RDW (11.5-14.5) % Plt Count (120.0-450.0) 10^3/uL MPV (7.0-11.0) fl Neut % (Auto) (50.0-68.0) % Lymph % (Auto) (22.0-35.0) % Mclennan % (Auto) (1.0-6.0) % Eos % (Auto) (1.5-5.0) % Baso % (Auto) (0.0-3.0) % Lymph # (Auto) (1.2-3.4) Mclennan # (Auto) (0.1-0.6) Eos # (Auto) (0.0-0.7) Baso # (Auto) (0.0-2.0) K/mm3 Absolute Neuts (auto) (1.4-6.5) pCO2 (35-45) mm/Hg pO2 (80-100) mm/Hg HCO3 (21-28) mmol/L ABG pH (7.35-7.45) ABG Total CO2 (22-28) mmol.L ABG O2 Saturation (95-98) % ABG Base Excess (-2.0-3.0) mmol/L ABG Potassium (3.6-5.2) mmol/L VBG pH (7.32-7.43) VBG pCO2 (40-60) VBG HCO3 (21-28) mmol/l VBG Total CO2 (22-28) mmol.L VBG O2 Sat (Calc) (40-65) % VBG Base Excess (0.0-2.0) mmol/L VBG Potassium (3.6-5.2) mmol/L Sodium 140 (132-148) mmol/L Chloride 105 (98-107) mmol/L Glucose (75-110) mg/dl Lactate (0.7-2.1) mmol/L FiO2 % Crit Value Called To Crit Value Called By Blood Gas Notified Time Potassium 3.8 (3.6-5.0) mmol/L Carbon Dioxide 29 (21-33) mmol/L Anion Gap 9 L (10-20) BUN 22 H (7-21) mg/dL Creatinine 0.7 L (0.8-1.5) mg/dl Est GFR ( Amer) > 60 Est GFR (Non-Af Amer) > 60 POC Glucose (mg/dL) 89 (65-110) mg/dL Random Glucose 127 H (70-110) mg/dL Calcium 9.1 (8.4-10.5) mg/dL Phosphorus (2.5-4.5) mg/dL Magnesium 1.5 L (1.7-2.2) mg/dL Total Bilirubin 0.4 (0.2-1.3) mg/dL AST 26 (17-59) U/L ALT 31 (7-56) U/L Alkaline Phosphatase 51 (38-126) U/L Total Protein 6.3 (5.8-8.3) g/dL Albumin 3.7 (3.0-4.8) g/dL Globulin 2.6 gm/dL Albumin/Globulin Ratio 1.4 (1.1-1.8) Triglycerides 71 (35-160) mg/dL Cholesterol 138 (130-200) mg/dL LDL Cholesterol Direct 66 (0-129) mg/dL HDL Cholesterol 53 (29-60) mg/dL Lipase 73 (23-300) U/L TSH 3rd Generation 2.67 (0.46-4.68) mIU/mL Arterial Blood Potassium (3.6-5.2) mmol/L Venous Blood Potassium (3.6-5.2) mmol/L Urine Color (YELLOW) Urine Appearance (CLEAR) Urine pH (4.7-8.0) Ur Specific Driscoll (1.005-1.035) Urine Protein (<30 mg/dL) mg/dL Urine Glucose (UA) (NEGATIVE) mg/dL Urine Ketones (NEGATIVE) mg/dL Urine Blood (NEGATIVE) Urine Nitrate (NEGATIVE) Urine Bilirubin (NEGATIVE) Urine Urobilinogen (<1 E.U./dL) E.U./dL Ur Leukocyte Esterase (NEGATIVE) Keon/uL Urine RBC (0-2) /hpf Urine WBC (0-6) /hpf Ur Epithelial Cells (0-5) /hpf Urine Bacteria (NONE) /hpf Urine Opiates Screen (NEGATIVE) Urine Methadone Screen (NEGATIVE) Ur Barbiturates Screen (NEGATIVE) Ur Phencyclidine Scrn (NEGATIVE) Ur Amphetamines Screen (NEGATIVE) U Benzodiazepines Scrn (NEGATIVE) U Oth Cocaine Metabols (NEGATIVE) U Cannabinoids Screen (NEGATIVE) Alcohol, Quantitative (0-10) mg/dL B-Hydroxybutyrate (0.02-0.27) mM 06/29/18 06/29/18 06/29/18 Range/Units 04:11 01:53 00:10 WBC (4.5-11.0) 10^3/uL RBC (3.5-6.1) 10^6/uL Hgb (14.0-18.0) g/dL Hct (42.0-52.0) % MCV (80.0-105.0) fl MCH (25.0-35.0) pg MCHC (31.0-37.0) g/dl RDW (11.5-14.5) % Plt Count (120.0-450.0) 10^3/uL MPV (7.0-11.0) fl Neut % (Auto) (50.0-68.0) % Lymph % (Auto) (22.0-35.0) % Mclennan % (Auto) (1.0-6.0) % Eos % (Auto) (1.5-5.0) % Baso % (Auto) (0.0-3.0) % Lymph # (Auto) (1.2-3.4) Mclennan # (Auto) (0.1-0.6) Eos # (Auto) (0.0-0.7) Baso # (Auto) (0.0-2.0) K/mm3 Absolute Neuts (auto) (1.4-6.5) pCO2 (35-45) mm/Hg pO2 (80-100) mm/Hg HCO3 (21-28) mmol/L ABG pH (7.35-7.45) ABG Total CO2 (22-28) mmol.L ABG O2 Saturation (95-98) % ABG Base Excess (-2.0-3.0) mmol/L ABG Potassium (3.6-5.2) mmol/L VBG pH (7.32-7.43) VBG pCO2 (40-60) VBG HCO3 (21-28) mmol/l VBG Total CO2 (22-28) mmol.L VBG O2 Sat (Calc) (40-65) % VBG Base Excess (0.0-2.0) mmol/L VBG Potassium (3.6-5.2) mmol/L Sodium (132-148) mmol/L Chloride (98-107) mmol/L Glucose (75-110) mg/dl Lactate (0.7-2.1) mmol/L FiO2 % Crit Value Called To Crit Value Called By Blood Gas Notified Time Potassium (3.6-5.0) mmol/L Carbon Dioxide (21-33) mmol/L Anion Gap (10-20) BUN (7-21) mg/dL Creatinine (0.8-1.5) mg/dl Est GFR ( Amer) Est GFR (Non-Af Amer) POC Glucose (mg/dL) 130 H 258 H 325 H (65-110) mg/dL Random Glucose (70-110) mg/dL Calcium (8.4-10.5) mg/dL Phosphorus (2.5-4.5) mg/dL Magnesium (1.7-2.2) mg/dL Total Bilirubin (0.2-1.3) mg/dL AST (17-59) U/L ALT (7-56) U/L Alkaline Phosphatase (38-126) U/L Total Protein (5.8-8.3) g/dL Albumin (3.0-4.8) g/dL Globulin gm/dL Albumin/Globulin Ratio (1.1-1.8) Triglycerides (35-160) mg/dL Cholesterol (130-200) mg/dL LDL Cholesterol Direct (0-129) mg/dL HDL Cholesterol (29-60) mg/dL Lipase (23-300) U/L TSH 3rd Generation (0.46-4.68) mIU/mL Arterial Blood Potassium (3.6-5.2) mmol/L Venous Blood Potassium (3.6-5.2) mmol/L Urine Color (YELLOW) Urine Appearance (CLEAR) Urine pH (4.7-8.0) Ur Specific Driscoll (1.005-1.035) Urine Protein (<30 mg/dL) mg/dL Urine Glucose (UA) (NEGATIVE) mg/dL Urine Ketones (NEGATIVE) mg/dL Urine Blood (NEGATIVE) Urine Nitrate (NEGATIVE) Urine Bilirubin (NEGATIVE) Urine Urobilinogen (<1 E.U./dL) E.U./dL Ur Leukocyte Esterase (NEGATIVE) Keon/uL Urine RBC (0-2) /hpf Urine WBC (0-6) /hpf Ur Epithelial Cells (0-5) /hpf Urine Bacteria (NONE) /hpf Urine Opiates Screen (NEGATIVE) Urine Methadone Screen (NEGATIVE) Ur Barbiturates Screen (NEGATIVE) Ur Phencyclidine Scrn (NEGATIVE) Ur Amphetamines Screen (NEGATIVE) U Benzodiazepines Scrn (NEGATIVE) U Oth Cocaine Metabols (NEGATIVE) U Cannabinoids Screen (NEGATIVE) Alcohol, Quantitative (0-10) mg/dL B-Hydroxybutyrate (0.02-0.27) mM 06/29/18 06/29/18 06/28/18 Range/Units 00:02 00:02 22:02 WBC (4.5-11.0) 10^3/uL RBC (3.5-6.1) 10^6/uL Hgb (14.0-18.0) g/dL Hct (42.0-52.0) % MCV (80.0-105.0) fl MCH (25.0-35.0) pg MCHC (31.0-37.0) g/dl RDW (11.5-14.5) % Plt Count (120.0-450.0) 10^3/uL MPV (7.0-11.0) fl Neut % (Auto) (50.0-68.0) % Lymph % (Auto) (22.0-35.0) % Mclennan % (Auto) (1.0-6.0) % Eos % (Auto) (1.5-5.0) % Baso % (Auto) (0.0-3.0) % Lymph # (Auto) (1.2-3.4) Mclennan # (Auto) (0.1-0.6) Eos # (Auto) (0.0-0.7) Baso # (Auto) (0.0-2.0) K/mm3 Absolute Neuts (auto) (1.4-6.5) pCO2 (35-45) mm/Hg pO2 120 H (80-100) mm/Hg HCO3 (21-28) mmol/L ABG pH (7.35-7.45) ABG Total CO2 (22-28) mmol.L ABG O2 Saturation (95-98) % ABG Base Excess (-2.0-3.0) mmol/L ABG Potassium (3.6-5.2) mmol/L VBG pH 7.43 (7.32-7.43) VBG pCO2 46.0 (40-60) VBG HCO3 30.5 H (21-28) mmol/l VBG Total CO2 31.9 H (22-28) mmol.L VBG O2 Sat (Calc) 99.6 H (40-65) % VBG Base Excess 5.3 H (0.0-2.0) mmol/L VBG Potassium 4.2 (3.6-5.2) mmol/L Sodium 137.0 137 (132-148) mmol/L Chloride 105.0 103 (98-107) mmol/L Glucose 317 H (75-110) mg/dl Lactate 1.0 (0.7-2.1) mmol/L FiO2 21.0 % Crit Value Called To Crit Value Called By Blood Gas Notified Time Potassium 4.3 (3.6-5.0) mmol/L Carbon Dioxide 27 (21-33) mmol/L Anion Gap 10 (10-20) BUN 27 H (7-21) mg/dL Creatinine 0.8 (0.8-1.5) mg/dl Est GFR ( Amer) > 60 Est GFR (Non-Af Amer) > 60 POC Glucose (mg/dL) 143 H (65-110) mg/dL Random Glucose 300 H (70-110) mg/dL Calcium 8.9 (8.4-10.5) mg/dL Phosphorus (2.5-4.5) mg/dL Magnesium (1.7-2.2) mg/dL Total Bilirubin (0.2-1.3) mg/dL AST (17-59) U/L ALT (7-56) U/L Alkaline Phosphatase (38-126) U/L Total Protein (5.8-8.3) g/dL Albumin (3.0-4.8) g/dL Globulin gm/dL Albumin/Globulin Ratio (1.1-1.8) Triglycerides (35-160) mg/dL Cholesterol (130-200) mg/dL LDL Cholesterol Direct (0-129) mg/dL HDL Cholesterol (29-60) mg/dL Lipase (23-300) U/L TSH 3rd Generation (0.46-4.68) mIU/mL Arterial Blood Potassium (3.6-5.2) mmol/L Venous Blood Potassium 4.2 (3.6-5.2) mmol/L Urine Color (YELLOW) Urine Appearance (CLEAR) Urine pH (4.7-8.0) Ur Specific Driscoll (1.005-1.035) Urine Protein (<30 mg/dL) mg/dL Urine Glucose (UA) (NEGATIVE) mg/dL Urine Ketones (NEGATIVE) mg/dL Urine Blood (NEGATIVE) Urine Nitrate (NEGATIVE) Urine Bilirubin (NEGATIVE) Urine Urobilinogen (<1 E.U./dL) E.U./dL Ur Leukocyte Esterase (NEGATIVE) Keon/uL Urine RBC (0-2) /hpf Urine WBC (0-6) /hpf Ur Epithelial Cells (0-5) /hpf Urine Bacteria (NONE) /hpf Urine Opiates Screen (NEGATIVE) Urine Methadone Screen (NEGATIVE) Ur Barbiturates Screen (NEGATIVE) Ur Phencyclidine Scrn (NEGATIVE) Ur Amphetamines Screen (NEGATIVE) U Benzodiazepines Scrn (NEGATIVE) U Oth Cocaine Metabols (NEGATIVE) U Cannabinoids Screen (NEGATIVE) Alcohol, Quantitative (0-10) mg/dL B-Hydroxybutyrate (0.02-0.27) mM 06/28/18 06/28/18 06/28/18 Range/Units 20:58 20:15 19:45 WBC (4.5-11.0) 10^3/uL RBC (3.5-6.1) 10^6/uL Hgb (14.0-18.0) g/dL Hct (42.0-52.0) % MCV (80.0-105.0) fl MCH (25.0-35.0) pg MCHC (31.0-37.0) g/dl RDW (11.5-14.5) % Plt Count (120.0-450.0) 10^3/uL MPV (7.0-11.0) fl Neut % (Auto) (50.0-68.0) % Lymph % (Auto) (22.0-35.0) % Mclennan % (Auto) (1.0-6.0) % Eos % (Auto) (1.5-5.0) % Baso % (Auto) (0.0-3.0) % Lymph # (Auto) (1.2-3.4) Mclennan # (Auto) (0.1-0.6) Eos # (Auto) (0.0-0.7) Baso # (Auto) (0.0-2.0) K/mm3 Absolute Neuts (auto) (1.4-6.5) pCO2 (35-45) mm/Hg pO2 36 (80-100) mm/Hg HCO3 (21-28) mmol/L ABG pH (7.35-7.45) ABG Total CO2 (22-28) mmol.L ABG O2 Saturation (95-98) % ABG Base Excess (-2.0-3.0) mmol/L ABG Potassium (3.6-5.2) mmol/L VBG pH 7.38 (7.32-7.43) VBG pCO2 58.0 (40-60) VBG HCO3 34.3 H (21-28) mmol/l VBG Total CO2 36.1 H (22-28) mmol.L VBG O2 Sat (Calc) 84.2 H (40-65) % VBG Base Excess 7.3 H (0.0-2.0) mmol/L VBG Potassium 3.7 (3.6-5.2) mmol/L Sodium 140.0 (132-148) mmol/L Chloride 104.0 (98-107) mmol/L Glucose 176 H (75-110) mg/dl Lactate 2.1 (0.7-2.1) mmol/L FiO2 21.0 % Crit Value Called To Crit Value Called By Blood Gas Notified Time Potassium (3.6-5.0) mmol/L Carbon Dioxide (21-33) mmol/L Anion Gap (10-20) BUN (7-21) mg/dL Creatinine (0.8-1.5) mg/dl Est GFR ( Amer) Est GFR (Non-Af Amer) POC Glucose (mg/dL) 152 H 176 H (65-110) mg/dL Random Glucose (70-110) mg/dL Calcium (8.4-10.5) mg/dL Phosphorus (2.5-4.5) mg/dL Magnesium (1.7-2.2) mg/dL Total Bilirubin (0.2-1.3) mg/dL AST (17-59) U/L ALT (7-56) U/L Alkaline Phosphatase (38-126) U/L Total Protein (5.8-8.3) g/dL Albumin (3.0-4.8) g/dL Globulin gm/dL Albumin/Globulin Ratio (1.1-1.8) Triglycerides (35-160) mg/dL Cholesterol (130-200) mg/dL LDL Cholesterol Direct (0-129) mg/dL HDL Cholesterol (29-60) mg/dL Lipase (23-300) U/L TSH 3rd Generation (0.46-4.68) mIU/mL Arterial Blood Potassium (3.6-5.2) mmol/L Venous Blood Potassium 3.7 (3.6-5.2) mmol/L Urine Color (YELLOW) Urine Appearance (CLEAR) Urine pH (4.7-8.0) Ur Specific Driscoll (1.005-1.035) Urine Protein (<30 mg/dL) mg/dL Urine Glucose (UA) (NEGATIVE) mg/dL Urine Ketones (NEGATIVE) mg/dL Urine Blood (NEGATIVE) Urine Nitrate (NEGATIVE) Urine Bilirubin (NEGATIVE) Urine Urobilinogen (<1 E.U./dL) E.U./dL Ur Leukocyte Esterase (NEGATIVE) Keon/uL Urine RBC (0-2) /hpf Urine WBC (0-6) /hpf Ur Epithelial Cells (0-5) /hpf Urine Bacteria (NONE) /hpf Urine Opiates Screen (NEGATIVE) Urine Methadone Screen (NEGATIVE) Ur Barbiturates Screen (NEGATIVE) Ur Phencyclidine Scrn (NEGATIVE) Ur Amphetamines Screen (NEGATIVE) U Benzodiazepines Scrn (NEGATIVE) U Oth Cocaine Metabols (NEGATIVE) U Cannabinoids Screen (NEGATIVE) Alcohol, Quantitative (0-10) mg/dL B-Hydroxybutyrate (0.02-0.27) mM 06/28/18 06/28/18 06/28/18 Range/Units 19:45 18:56 17:47 WBC (4.5-11.0) 10^3/uL RBC (3.5-6.1) 10^6/uL Hgb (14.0-18.0) g/dL Hct (42.0-52.0) % MCV (80.0-105.0) fl MCH (25.0-35.0) pg MCHC (31.0-37.0) g/dl RDW (11.5-14.5) % Plt Count (120.0-450.0) 10^3/uL MPV (7.0-11.0) fl Neut % (Auto) (50.0-68.0) % Lymph % (Auto) (22.0-35.0) % Mclennan % (Auto) (1.0-6.0) % Eos % (Auto) (1.5-5.0) % Baso % (Auto) (0.0-3.0) % Lymph # (Auto) (1.2-3.4) Mclennan # (Auto) (0.1-0.6) Eos # (Auto) (0.0-0.7) Baso # (Auto) (0.0-2.0) K/mm3 Absolute Neuts (auto) (1.4-6.5) pCO2 (35-45) mm/Hg pO2 (80-100) mm/Hg HCO3 (21-28) mmol/L ABG pH (7.35-7.45) ABG Total CO2 (22-28) mmol.L ABG O2 Saturation (95-98) % ABG Base Excess (-2.0-3.0) mmol/L ABG Potassium (3.6-5.2) mmol/L VBG pH (7.32-7.43) VBG pCO2 (40-60) VBG HCO3 (21-28) mmol/l VBG Total CO2 (22-28) mmol.L VBG O2 Sat (Calc) (40-65) % VBG Base Excess (0.0-2.0) mmol/L VBG Potassium (3.6-5.2) mmol/L Sodium 140 (132-148) mmol/L Chloride 101 (98-107) mmol/L Glucose (75-110) mg/dl Lactate (0.7-2.1) mmol/L FiO2 % Crit Value Called To Crit Value Called By Blood Gas Notified Time Potassium 3.8 (3.6-5.0) mmol/L Carbon Dioxide 31 (21-33) mmol/L Anion Gap 11 (10-20) BUN 31 H (7-21) mg/dL Creatinine 1.0 (0.8-1.5) mg/dl Est GFR ( Amer) > 60 Est GFR (Non-Af Amer) > 60 POC Glucose (mg/dL) 153 H 156 H (65-110) mg/dL Random Glucose 168 H (70-110) mg/dL Calcium 9.0 (8.4-10.5) mg/dL Phosphorus (2.5-4.5) mg/dL Magnesium (1.7-2.2) mg/dL Total Bilirubin (0.2-1.3) mg/dL AST (17-59) U/L ALT (7-56) U/L Alkaline Phosphatase (38-126) U/L Total Protein (5.8-8.3) g/dL Albumin (3.0-4.8) g/dL Globulin gm/dL Albumin/Globulin Ratio (1.1-1.8) Triglycerides (35-160) mg/dL Cholesterol (130-200) mg/dL LDL Cholesterol Direct (0-129) mg/dL HDL Cholesterol (29-60) mg/dL Lipase (23-300) U/L TSH 3rd Generation (0.46-4.68) mIU/mL Arterial Blood Potassium (3.6-5.2) mmol/L Venous Blood Potassium (3.6-5.2) mmol/L Urine Color (YELLOW) Urine Appearance (CLEAR) Urine pH (4.7-8.0) Ur Specific Driscoll (1.005-1.035) Urine Protein (<30 mg/dL) mg/dL Urine Glucose (UA) (NEGATIVE) mg/dL Urine Ketones (NEGATIVE) mg/dL Urine Blood (NEGATIVE) Urine Nitrate (NEGATIVE) Urine Bilirubin (NEGATIVE) Urine Urobilinogen (<1 E.U./dL) E.U./dL Ur Leukocyte Esterase (NEGATIVE) Keon/uL Urine RBC (0-2) /hpf Urine WBC (0-6) /hpf Ur Epithelial Cells (0-5) /hpf Urine Bacteria (NONE) /hpf Urine Opiates Screen (NEGATIVE) Urine Methadone Screen (NEGATIVE) Ur Barbiturates Screen (NEGATIVE) Ur Phencyclidine Scrn (NEGATIVE) Ur Amphetamines Screen (NEGATIVE) U Benzodiazepines Scrn (NEGATIVE) U Oth Cocaine Metabols (NEGATIVE) U Cannabinoids Screen (NEGATIVE) Alcohol, Quantitative (0-10) mg/dL B-Hydroxybutyrate (0.02-0.27) mM 06/28/18 06/28/18 06/28/18 Range/Units 17:00 16:56 16:44 WBC (4.5-11.0) 10^3/uL RBC (3.5-6.1) 10^6/uL Hgb (14.0-18.0) g/dL Hct (42.0-52.0) % MCV (80.0-105.0) fl MCH (25.0-35.0) pg MCHC (31.0-37.0) g/dl RDW (11.5-14.5) % Plt Count (120.0-450.0) 10^3/uL MPV (7.0-11.0) fl Neut % (Auto) (50.0-68.0) % Lymph % (Auto) (22.0-35.0) % Mclennan % (Auto) (1.0-6.0) % Eos % (Auto) (1.5-5.0) % Baso % (Auto) (0.0-3.0) % Lymph # (Auto) (1.2-3.4) Mclennan # (Auto) (0.1-0.6) Eos # (Auto) (0.0-0.7) Baso # (Auto) (0.0-2.0) K/mm3 Absolute Neuts (auto) (1.4-6.5) pCO2 (35-45) mm/Hg pO2 25 L (80-100) mm/Hg HCO3 (21-28) mmol/L ABG pH (7.35-7.45) ABG Total CO2 (22-28) mmol.L ABG O2 Saturation (95-98) % ABG Base Excess (-2.0-3.0) mmol/L ABG Potassium (3.6-5.2) mmol/L VBG pH 7.40 (7.32-7.43) VBG pCO2 59.0 (40-60) VBG HCO3 36.5 H (21-28) mmol/l VBG Total CO2 38.3 H (22-28) mmol.L VBG O2 Sat (Calc) 60.0 (40-65) % VBG Base Excess 9.5 H (0.0-2.0) mmol/L VBG Potassium 4.1 (3.6-5.2) mmol/L Sodium 141 141.0 (132-148) mmol/L Chloride 102 101.0 (98-107) mmol/L Glucose 259 H (75-110) mg/dl Lactate 2.1 (0.7-2.1) mmol/L FiO2 21.0 % Crit Value Called To Crit Value Called By Blood Gas Notified Time Potassium 3.9 (3.6-5.0) mmol/L Carbon Dioxide 30 (21-33) mmol/L Anion Gap 14 (10-20) BUN 34 H (7-21) mg/dL Creatinine 0.9 (0.8-1.5) mg/dl Est GFR ( Amer) > 60 Est GFR (Non-Af Amer) > 60 POC Glucose (mg/dL) 227 H (65-110) mg/dL Random Glucose 168 H (70-110) mg/dL Calcium 9.5 (8.4-10.5) mg/dL Phosphorus (2.5-4.5) mg/dL Magnesium (1.7-2.2) mg/dL Total Bilirubin (0.2-1.3) mg/dL AST (17-59) U/L ALT (7-56) U/L Alkaline Phosphatase (38-126) U/L Total Protein (5.8-8.3) g/dL Albumin (3.0-4.8) g/dL Globulin gm/dL Albumin/Globulin Ratio (1.1-1.8) Triglycerides (35-160) mg/dL Cholesterol (130-200) mg/dL LDL Cholesterol Direct (0-129) mg/dL HDL Cholesterol (29-60) mg/dL Lipase (23-300) U/L TSH 3rd Generation (0.46-4.68) mIU/mL Arterial Blood Potassium (3.6-5.2) mmol/L Venous Blood Potassium 4.1 (3.6-5.2) mmol/L Urine Color (YELLOW) Urine Appearance (CLEAR) Urine pH (4.7-8.0) Ur Specific Driscoll (1.005-1.035) Urine Protein (<30 mg/dL) mg/dL Urine Glucose (UA) (NEGATIVE) mg/dL Urine Ketones (NEGATIVE) mg/dL Urine Blood (NEGATIVE) Urine Nitrate (NEGATIVE) Urine Bilirubin (NEGATIVE) Urine Urobilinogen (<1 E.U./dL) E.U./dL Ur Leukocyte Esterase (NEGATIVE) Keon/uL Urine RBC (0-2) /hpf Urine WBC (0-6) /hpf Ur Epithelial Cells (0-5) /hpf Urine Bacteria (NONE) /hpf Urine Opiates Screen (NEGATIVE) Urine Methadone Screen (NEGATIVE) Ur Barbiturates Screen (NEGATIVE) Ur Phencyclidine Scrn (NEGATIVE) Ur Amphetamines Screen (NEGATIVE) U Benzodiazepines Scrn (NEGATIVE) U Oth Cocaine Metabols (NEGATIVE) U Cannabinoids Screen (NEGATIVE) Alcohol, Quantitative (0-10) mg/dL B-Hydroxybutyrate (0.02-0.27) mM 06/28/18 06/28/18 06/28/18 Range/Units 16:32 15:34 14:30 WBC (4.5-11.0) 10^3/uL RBC (3.5-6.1) 10^6/uL Hgb (14.0-18.0) g/dL Hct (42.0-52.0) % MCV (80.0-105.0) fl MCH (25.0-35.0) pg MCHC (31.0-37.0) g/dl RDW (11.5-14.5) % Plt Count (120.0-450.0) 10^3/uL MPV (7.0-11.0) fl Neut % (Auto) (50.0-68.0) % Lymph % (Auto) (22.0-35.0) % Mclennan % (Auto) (1.0-6.0) % Eos % (Auto) (1.5-5.0) % Baso % (Auto) (0.0-3.0) % Lymph # (Auto) (1.2-3.4) Mclennan # (Auto) (0.1-0.6) Eos # (Auto) (0.0-0.7) Baso # (Auto) (0.0-2.0) K/mm3 Absolute Neuts (auto) (1.4-6.5) pCO2 (35-45) mm/Hg pO2 (80-100) mm/Hg HCO3 (21-28) mmol/L ABG pH (7.35-7.45) ABG Total CO2 (22-28) mmol.L ABG O2 Saturation (95-98) % ABG Base Excess (-2.0-3.0) mmol/L ABG Potassium (3.6-5.2) mmol/L VBG pH (7.32-7.43) VBG pCO2 (40-60) VBG HCO3 (21-28) mmol/l VBG Total CO2 (22-28) mmol.L VBG O2 Sat (Calc) (40-65) % VBG Base Excess (0.0-2.0) mmol/L VBG Potassium (3.6-5.2) mmol/L Sodium (132-148) mmol/L Chloride (98-107) mmol/L Glucose (75-110) mg/dl Lactate (0.7-2.1) mmol/L FiO2 % Crit Value Called To Crit Value Called By Blood Gas Notified Time Potassium (3.6-5.0) mmol/L Carbon Dioxide (21-33) mmol/L Anion Gap (10-20) BUN (7-21) mg/dL Creatinine (0.8-1.5) mg/dl Est GFR ( Amer) Est GFR (Non-Af Amer) POC Glucose (mg/dL) 264 H 357 H 442 H* (65-110) mg/dL Random Glucose (70-110) mg/dL Calcium (8.4-10.5) mg/dL Phosphorus (2.5-4.5) mg/dL Magnesium (1.7-2.2) mg/dL Total Bilirubin (0.2-1.3) mg/dL AST (17-59) U/L ALT (7-56) U/L Alkaline Phosphatase (38-126) U/L Total Protein (5.8-8.3) g/dL Albumin (3.0-4.8) g/dL Globulin gm/dL Albumin/Globulin Ratio (1.1-1.8) Triglycerides (35-160) mg/dL Cholesterol (130-200) mg/dL LDL Cholesterol Direct (0-129) mg/dL HDL Cholesterol (29-60) mg/dL Lipase (23-300) U/L TSH 3rd Generation (0.46-4.68) mIU/mL Arterial Blood Potassium (3.6-5.2) mmol/L Venous Blood Potassium (3.6-5.2) mmol/L Urine Color (YELLOW) Urine Appearance (CLEAR) Urine pH (4.7-8.0) Ur Specific Driscoll (1.005-1.035) Urine Protein (<30 mg/dL) mg/dL Urine Glucose (UA) (NEGATIVE) mg/dL Urine Ketones (NEGATIVE) mg/dL Urine Blood (NEGATIVE) Urine Nitrate (NEGATIVE) Urine Bilirubin (NEGATIVE) Urine Urobilinogen (<1 E.U./dL) E.U./dL Ur Leukocyte Esterase (NEGATIVE) Keon/uL Urine RBC (0-2) /hpf Urine WBC (0-6) /hpf Ur Epithelial Cells (0-5) /hpf Urine Bacteria (NONE) /hpf Urine Opiates Screen (NEGATIVE) Urine Methadone Screen (NEGATIVE) Ur Barbiturates Screen (NEGATIVE) Ur Phencyclidine Scrn (NEGATIVE) Ur Amphetamines Screen (NEGATIVE) U Benzodiazepines Scrn (NEGATIVE) U Oth Cocaine Metabols (NEGATIVE) U Cannabinoids Screen (NEGATIVE) Alcohol, Quantitative (0-10) mg/dL B-Hydroxybutyrate (0.02-0.27) mM 06/28/18 06/28/18 06/28/18 Range/Units 14:00 14:00 12:34 WBC (4.5-11.0) 10^3/uL RBC (3.5-6.1) 10^6/uL Hgb (14.0-18.0) g/dL Hct (42.0-52.0) % MCV (80.0-105.0) fl MCH (25.0-35.0) pg MCHC (31.0-37.0) g/dl RDW (11.5-14.5) % Plt Count (120.0-450.0) 10^3/uL MPV (7.0-11.0) fl Neut % (Auto) (50.0-68.0) % Lymph % (Auto) (22.0-35.0) % Mclennan % (Auto) (1.0-6.0) % Eos % (Auto) (1.5-5.0) % Baso % (Auto) (0.0-3.0) % Lymph # (Auto) (1.2-3.4) Mclennan # (Auto) (0.1-0.6) Eos # (Auto) (0.0-0.7) Baso # (Auto) (0.0-2.0) K/mm3 Absolute Neuts (auto) (1.4-6.5) pCO2 (35-45) mm/Hg pO2 (80-100) mm/Hg HCO3 (21-28) mmol/L ABG pH (7.35-7.45) ABG Total CO2 (22-28) mmol.L ABG O2 Saturation (95-98) % ABG Base Excess (-2.0-3.0) mmol/L ABG Potassium (3.6-5.2) mmol/L VBG pH (7.32-7.43) VBG pCO2 (40-60) VBG HCO3 (21-28) mmol/l VBG Total CO2 (22-28) mmol.L VBG O2 Sat (Calc) (40-65) % VBG Base Excess (0.0-2.0) mmol/L VBG Potassium (3.6-5.2) mmol/L Sodium (132-148) mmol/L Chloride (98-107) mmol/L Glucose (75-110) mg/dl Lactate (0.7-2.1) mmol/L FiO2 % Crit Value Called To Crit Value Called By Blood Gas Notified Time Potassium (3.6-5.0) mmol/L Carbon Dioxide (21-33) mmol/L Anion Gap (10-20) BUN (7-21) mg/dL Creatinine (0.8-1.5) mg/dl Est GFR ( Amer) Est GFR (Non-Af Amer) POC Glucose (mg/dL) (65-110) mg/dL Random Glucose (70-110) mg/dL Calcium (8.4-10.5) mg/dL Phosphorus (2.5-4.5) mg/dL Magnesium (1.7-2.2) mg/dL Total Bilirubin (0.2-1.3) mg/dL AST (17-59) U/L ALT (7-56) U/L Alkaline Phosphatase (38-126) U/L Total Protein (5.8-8.3) g/dL Albumin (3.0-4.8) g/dL Globulin gm/dL Albumin/Globulin Ratio (1.1-1.8) Triglycerides (35-160) mg/dL Cholesterol (130-200) mg/dL LDL Cholesterol Direct (0-129) mg/dL HDL Cholesterol (29-60) mg/dL Lipase (23-300) U/L TSH 3rd Generation (0.46-4.68) mIU/mL Arterial Blood Potassium (3.6-5.2) mmol/L Venous Blood Potassium (3.6-5.2) mmol/L Urine Color Yellow (YELLOW) Urine Appearance Clear (CLEAR) Urine pH 6.0 (4.7-8.0) Ur Specific Driscoll 1.015 (1.005-1.035) Urine Protein 30 H (<30 mg/dL) mg/dL Urine Glucose (UA) >=1000 (NEGATIVE) mg/dL Urine Ketones 40 H (NEGATIVE) mg/dL Urine Blood Small H (NEGATIVE) Urine Nitrate Negative (NEGATIVE) Urine Bilirubin Negative (NEGATIVE) Urine Urobilinogen 0.2 (<1 E.U./dL) E.U./dL Ur Leukocyte Esterase Negative (NEGATIVE) Keon/uL Urine RBC 5 - 10 H (0-2) /hpf Urine WBC 0 - 2 (0-6) /hpf Ur Epithelial Cells None (0-5) /hpf Urine Bacteria Small (NONE) /hpf Urine Opiates Screen Negative (NEGATIVE) Urine Methadone Screen Negative (NEGATIVE) Ur Barbiturates Screen Negative (NEGATIVE) Ur Phencyclidine Scrn Negative (NEGATIVE) Ur Amphetamines Screen Negative (NEGATIVE) U Benzodiazepines Scrn Negative (NEGATIVE) U Oth Cocaine Metabols Negative (NEGATIVE) U Cannabinoids Screen Positive H (NEGATIVE) Alcohol, Quantitative < 10 (0-10) mg/dL B-Hydroxybutyrate (0.02-0.27) mM 06/28/18 06/28/18 06/28/18 Range/Units 12:34 12:34 12:20 WBC 8.4 (4.5-11.0) 10^3/uL RBC 4.25 (3.5-6.1) 10^6/uL Hgb 11.9 L (14.0-18.0) g/dL Hct 36.3 L (42.0-52.0) % MCV 85.4 (80.0-105.0) fl MCH 28.0 (25.0-35.0) pg MCHC 32.8 (31.0-37.0) g/dl RDW 12.8 (11.5-14.5) % Plt Count 254 (120.0-450.0) 10^3/uL MPV 8.5 (7.0-11.0) fl Neut % (Auto) 75.4 H (50.0-68.0) % Lymph % (Auto) 19.4 L (22.0-35.0) % Mclennan % (Auto) 5.0 (1.0-6.0) % Eos % (Auto) 0.1 L (1.5-5.0) % Baso % (Auto) 0.1 (0.0-3.0) % Lymph # (Auto) 1.6 (1.2-3.4) Mclennan # (Auto) 0.4 (0.1-0.6) Eos # (Auto) 0.0 (0.0-0.7) Baso # (Auto) 0.01 (0.0-2.0) K/mm3 Absolute Neuts (auto) 6.30 (1.4-6.5) pCO2 40 (35-45) mm/Hg pO2 89.0 (80-100) mm/Hg HCO3 21.6 (21-28) mmol/L ABG pH 7.34 L (7.35-7.45) ABG Total CO2 22.8 (22-28) mmol.L ABG O2 Saturation 98.4 H (95-98) % ABG Base Excess -3.9 L (-2.0-3.0) mmol/L ABG Potassium 4.1 (3.6-5.2) mmol/L VBG pH (7.32-7.43) VBG pCO2 (40-60) VBG HCO3 (21-28) mmol/l VBG Total CO2 (22-28) mmol.L VBG O2 Sat (Calc) (40-65) % VBG Base Excess (0.0-2.0) mmol/L VBG Potassium (3.6-5.2) mmol/L Sodium 140 141.0 (132-148) mmol/L Chloride 97 L 100.0 (98-107) mmol/L Glucose 629 H* (75-110) mg/dl Lactate 2.9 H (0.7-2.1) mmol/L FiO2 21.0 % Crit Value Called To Dl whitt md Crit Value Called By Héctor sargent Blood Gas Notified Time 1224 Potassium 5.0 (3.6-5.0) mmol/L Carbon Dioxide 23 (21-33) mmol/L Anion Gap 25 H (10-20) BUN 36 H (7-21) mg/dL Creatinine 1.1 (0.8-1.5) mg/dl Est GFR ( Amer) > 60 Est GFR (Non-Af Amer) > 60 POC Glucose (mg/dL) (65-110) mg/dL Random Glucose 633 H* (70-110) mg/dL Calcium 10.1 (8.4-10.5) mg/dL Phosphorus 5.0 H (2.5-4.5) mg/dL Magnesium 2.0 (1.7-2.2) mg/dL Total Bilirubin 0.4 (0.2-1.3) mg/dL AST 25 (17-59) U/L ALT 27 (7-56) U/L Alkaline Phosphatase 65 (38-126) U/L Total Protein 7.0 (5.8-8.3) g/dL Albumin 4.5 (3.0-4.8) g/dL Globulin 2.5 gm/dL Albumin/Globulin Ratio 1.8 (1.1-1.8) Triglycerides (35-160) mg/dL Cholesterol (130-200) mg/dL LDL Cholesterol Direct (0-129) mg/dL HDL Cholesterol (29-60) mg/dL Lipase (23-300) U/L TSH 3rd Generation (0.46-4.68) mIU/mL Arterial Blood Potassium 4.1 (3.6-5.2) mmol/L Venous Blood Potassium (3.6-5.2) mmol/L Urine Color (YELLOW) Urine Appearance (CLEAR) Urine pH (4.7-8.0) Ur Specific Driscoll (1.005-1.035) Urine Protein (<30 mg/dL) mg/dL Urine Glucose (UA) (NEGATIVE) mg/dL Urine Ketones (NEGATIVE) mg/dL Urine Blood (NEGATIVE) Urine Nitrate (NEGATIVE) Urine Bilirubin (NEGATIVE) Urine Urobilinogen (<1 E.U./dL) E.U./dL Ur Leukocyte Esterase (NEGATIVE) Keon/uL Urine RBC (0-2) /hpf Urine WBC (0-6) /hpf Ur Epithelial Cells (0-5) /hpf Urine Bacteria (NONE) /hpf Urine Opiates Screen (NEGATIVE) Urine Methadone Screen (NEGATIVE) Ur Barbiturates Screen (NEGATIVE) Ur Phencyclidine Scrn (NEGATIVE) Ur Amphetamines Screen (NEGATIVE) U Benzodiazepines Scrn (NEGATIVE) U Oth Cocaine Metabols (NEGATIVE) U Cannabinoids Screen (NEGATIVE) Alcohol, Quantitative (0-10) mg/dL B-Hydroxybutyrate 4.39 H (0.02-0.27) mM 06/28/18 Range/Units 11:58 WBC (4.5-11.0) 10^3/uL RBC (3.5-6.1) 10^6/uL Hgb (14.0-18.0) g/dL Hct (42.0-52.0) % MCV (80.0-105.0) fl MCH (25.0-35.0) pg MCHC (31.0-37.0) g/dl RDW (11.5-14.5) % Plt Count (120.0-450.0) 10^3/uL MPV (7.0-11.0) fl Neut % (Auto) (50.0-68.0) % Lymph % (Auto) (22.0-35.0) % Mclennan % (Auto) (1.0-6.0) % Eos % (Auto) (1.5-5.0) % Baso % (Auto) (0.0-3.0) % Lymph # (Auto) (1.2-3.4) Mclennan # (Auto) (0.1-0.6) Eos # (Auto) (0.0-0.7) Baso # (Auto) (0.0-2.0) K/mm3 Absolute Neuts (auto) (1.4-6.5) pCO2 (35-45) mm/Hg pO2 (80-100) mm/Hg HCO3 (21-28) mmol/L ABG pH (7.35-7.45) ABG Total CO2 (22-28) mmol.L ABG O2 Saturation (95-98) % ABG Base Excess (-2.0-3.0) mmol/L ABG Potassium (3.6-5.2) mmol/L VBG pH (7.32-7.43) VBG pCO2 (40-60) VBG HCO3 (21-28) mmol/l VBG Total CO2 (22-28) mmol.L VBG O2 Sat (Calc) (40-65) % VBG Base Excess (0.0-2.0) mmol/L VBG Potassium (3.6-5.2) mmol/L Sodium (132-148) mmol/L Chloride (98-107) mmol/L Glucose (75-110) mg/dl Lactate (0.7-2.1) mmol/L FiO2 % Crit Value Called To Crit Value Called By Blood Gas Notified Time Potassium (3.6-5.0) mmol/L Carbon Dioxide (21-33) mmol/L Anion Gap (10-20) BUN (7-21) mg/dL Creatinine (0.8-1.5) mg/dl Est GFR ( Amer) Est GFR (Non-Af Amer) POC Glucose (mg/dL) > 500 H* (65-110) mg/dL Random Glucose (70-110) mg/dL Calcium (8.4-10.5) mg/dL Phosphorus (2.5-4.5) mg/dL Magnesium (1.7-2.2) mg/dL Total Bilirubin (0.2-1.3) mg/dL AST (17-59) U/L ALT (7-56) U/L Alkaline Phosphatase (38-126) U/L Total Protein (5.8-8.3) g/dL Albumin (3.0-4.8) g/dL Globulin gm/dL Albumin/Globulin Ratio (1.1-1.8) Triglycerides (35-160) mg/dL Cholesterol (130-200) mg/dL LDL Cholesterol Direct (0-129) mg/dL HDL Cholesterol (29-60) mg/dL Lipase (23-300) U/L TSH 3rd Generation (0.46-4.68) mIU/mL Arterial Blood Potassium (3.6-5.2) mmol/L Venous Blood Potassium (3.6-5.2) mmol/L Urine Color (YELLOW) Urine Appearance (CLEAR) Urine pH (4.7-8.0) Ur Specific Driscoll (1.005-1.035) Urine Protein (<30 mg/dL) mg/dL Urine Glucose (UA) (NEGATIVE) mg/dL Urine Ketones (NEGATIVE) mg/dL Urine Blood (NEGATIVE) Urine Nitrate (NEGATIVE) Urine Bilirubin (NEGATIVE) Urine Urobilinogen (<1 E.U./dL) E.U./dL Ur Leukocyte Esterase (NEGATIVE) Keon/uL Urine RBC (0-2) /hpf Urine WBC (0-6) /hpf Ur Epithelial Cells (0-5) /hpf Urine Bacteria (NONE) /hpf Urine Opiates Screen (NEGATIVE) Urine Methadone Screen (NEGATIVE) Ur Barbiturates Screen (NEGATIVE) Ur Phencyclidine Scrn (NEGATIVE) Ur Amphetamines Screen (NEGATIVE) U Benzodiazepines Scrn (NEGATIVE) U Oth Cocaine Metabols (NEGATIVE) U Cannabinoids Screen (NEGATIVE) Alcohol, Quantitative (0-10) mg/dL B-Hydroxybutyrate (0.02-0.27) mM Laboratory Results - last 24 hr 06/28/18 06/28/18 06/28/18 11:58 12:20 12:34 WBC 8.4 RBC 4.25 Hgb 11.9 L Hct 36.3 L MCV 85.4 MCH 28.0 MCHC 32.8 RDW 12.8 Plt Count 254 MPV 8.5 Neut % (Auto) 75.4 H Lymph % (Auto) 19.4 L Mclennan % (Auto) 5.0 Eos % (Auto) 0.1 L Baso % (Auto) 0.1 Lymph # (Auto) 1.6 Mclennan # (Auto) 0.4 Eos # (Auto) 0.0 Baso # (Auto) 0.01 Absolute Neuts (auto) 6.30 pCO2 40 pO2 89.0 HCO3 21.6 ABG pH 7.34 L ABG Total CO2 22.8 ABG O2 Saturation 98.4 H ABG Base Excess -3.9 L ABG Potassium 4.1 VBG pH VBG pCO2 VBG HCO3 VBG Total CO2 VBG O2 Sat (Calc) VBG Base Excess VBG Potassium Sodium 141.0 Chloride 100.0 Glucose 629 H* Lactate 2.9 H FiO2 21.0 Crit Value Called To Dl whitt md Crit Value Called By Héctor sargent Blood Gas Notified Time 1224 Potassium Carbon Dioxide Anion Gap BUN Creatinine Est GFR ( Amer) Est GFR (Non-Af Amer) POC Glucose (mg/dL) > 500 H* Random Glucose Calcium Phosphorus Magnesium Total Bilirubin AST ALT Alkaline Phosphatase Total Protein Albumin Globulin Albumin/Globulin Ratio Triglycerides Cholesterol LDL Cholesterol Direct HDL Cholesterol Lipase TSH 3rd Generation Arterial Blood Potassium 4.1 Venous Blood Potassium Urine Color Urine Appearance Urine pH Ur Specific Dr[place]coll Urine Protein Urine Glucose (UA) Urine Ketones Urine Blood Urine Nitrate Urine Bilirubin Urine Urobilinogen Ur Leukocyte Esterase Urine RBC Urine WBC Ur Epithelial Cells Urine Bacteria Urine Opiates Screen Urine Methadone Screen Ur Barbiturates Screen Ur Phencyclidine Scrn Ur Amphetamines Screen U Benzodiazepines Scrn U Oth Cocaine Metabols U Cannabinoids Screen Alcohol, Quantitative B-Hydroxybutyrate 06/28/18 06/28/18 06/28/18 12:34 12:34 14:00 WBC RBC Hgb Hct MCV MCH MCHC RDW Plt Count MPV Neut % (Auto) Lymph % (Auto) Mclennan % (Auto) Eos % (Auto) Baso % (Auto) Lymph # (Auto) Mclennan # (Auto) Eos # (Auto) Baso # (Auto) Absolute Neuts (auto) pCO2 pO2 HCO3 ABG pH ABG Total CO2 ABG O2 Saturation ABG Base Excess ABG Potassium VBG pH VBG pCO2 VBG HCO3 VBG Total CO2 VBG O2 Sat (Calc) VBG Base Excess VBG Potassium Sodium 140 Chloride 97 L Glucose Lactate FiO2 Crit Value Called To Crit Value Called By Blood Gas Notified Time Potassium 5.0 Carbon Dioxide 23 Anion Gap 25 H BUN 36 H Creatinine 1.1 Est GFR ( Amer) > 60 Est GFR (Non-Af Amer) > 60 POC Glucose (mg/dL) Random Glucose 633 H* Calcium 10.1 Phosphorus 5.0 H Magnesium 2.0 Total Bilirubin 0.4 AST 25 ALT 27 Alkaline Phosphatase 65 Total Protein 7.0 Albumin 4.5 Globulin 2.5 Albumin/Globulin Ratio 1.8 Triglycerides Cholesterol LDL Cholesterol Direct HDL Cholesterol Lipase TSH 3rd Generation Arterial Blood Potassium Venous Blood Potassium Urine Color Yellow Urine Appearance Clear Urine pH 6.0 Ur Specific Driscoll 1.015 Urine Protein 30 H Urine Glucose (UA) >=1000 Urine Ketones 40 H Urine Blood Small H Urine Nitrate Negative Urine Bilirubin Negative Urine Urobilinogen 0.2 Ur Leukocyte Esterase Negative Urine RBC 5 - 10 H Urine WBC 0 - 2 Ur Epithelial Cells None Urine Bacteria Small Urine Opiates Screen Urine Methadone Screen Ur Barbiturates Screen Ur Phencyclidine Scrn Ur Amphetamines Screen U Benzodiazepines Scrn U Oth Cocaine Metabols U Cannabinoids Screen Alcohol, Quantitative < 10 B-Hydroxybutyrate 4.39 H 06/28/18 06/28/18 06/28/18 14:00 14:30 15:34 WBC RBC Hgb Hct MCV MCH MCHC RDW Plt Count MPV Neut % (Auto) Lymph % (Auto) Mclennan % (Auto) Eos % (Auto) Baso % (Auto) Lymph # (Auto) Mclennan # (Auto) Eos # (Auto) Baso # (Auto) Absolute Neuts (auto) pCO2 pO2 HCO3 ABG pH ABG Total CO2 ABG O2 Saturation ABG Base Excess ABG Potassium VBG pH VBG pCO2 VBG HCO3 VBG Total CO2 VBG O2 Sat (Calc) VBG Base Excess VBG Potassium Sodium Chloride Glucose Lactate FiO2 Crit Value Called To Crit Value Called By Blood Gas Notified Time Potassium Carbon Dioxide Anion Gap BUN Creatinine Est GFR ( Amer) Est GFR (Non-Af Amer) POC Glucose (mg/dL) 442 H* 357 H Random Glucose Calcium Phosphorus Magnesium Total Bilirubin AST ALT Alkaline Phosphatase Total Protein Albumin Globulin Albumin/Globulin Ratio Triglycerides Cholesterol LDL Cholesterol Direct HDL Cholesterol Lipase TSH 3rd Generation Arterial Blood Potassium Venous Blood Potassium Urine Color Urine Appearance Urine pH Ur Specific Dr[place] Urine Protein Urine Glucose (UA) Urine Ketones Urine Blood Urine Nitrate Urine Bilirubin Urine Urobilinogen Ur Leukocyte Esterase Urine RBC Urine WBC Ur Epithelial Cells Urine Bacteria Urine Opiates Screen Negative Urine Methadone Screen Negative Ur Barbiturates Screen Negative Ur Phencyclidine Scrn Negative Ur Amphetamines Screen Negative U Benzodiazepines Scrn Negative U Oth Cocaine Metabols Negative U Cannabinoids Screen Positive H Alcohol, Quantitative B-Hydroxybutyrate 06/28/18 06/28/18 06/28/18 16:32 16:44 16:56 WBC RBC Hgb Hct MCV MCH MCHC RDW Plt Count MPV Neut % (Auto) Lymph % (Auto) Mclennan % (Auto) Eos % (Auto) Baso % (Auto) Lymph # (Auto) Mclennan # (Auto) Eos # (Auto) Baso # (Auto) Absolute Neuts (auto) pCO2 pO2 25 L HCO3 ABG pH ABG Total CO2 ABG O2 Saturation ABG Base Excess ABG Potassium VBG pH 7.40 VBG pCO2 59.0 VBG HCO3 36.5 H VBG Total CO2 38.3 H VBG O2 Sat (Calc) 60.0 VBG Base Excess 9.5 H VBG Potassium 4.1 Sodium 141.0 Chloride 101.0 Glucose 259 H Lactate 2.1 FiO2 21.0 Crit Value Called To Crit Value Called By Blood Gas Notified Time Potassium Carbon Dioxide Anion Gap BUN Creatinine Est GFR ( Amer) Est GFR (Non-Af Amer) POC Glucose (mg/dL) 264 H 227 H Random Glucose Calcium Phosphorus Magnesium Total Bilirubin AST ALT Alkaline Phosphatase Total Protein Albumin Globulin Albumin/Globulin Ratio Triglycerides Cholesterol LDL Cholesterol Direct HDL Cholesterol Lipase TSH 3rd Generation Arterial Blood Potassium Venous Blood Potassium 4.1 Urine Color Urine Appearance Urine pH Ur Specific Dr[place]coll Urine Protein Urine Glucose (UA) Urine Ketones Urine Blood Urine Nitrate Urine Bilirubin Urine Urobilinogen Ur Leukocyte Esterase Urine RBC Urine WBC Ur Epithelial Cells Urine Bacteria Urine Opiates Screen Urine Methadone Screen Ur Barbiturates Screen Ur Phencyclidine Scrn Ur Amphetamines Screen U Benzodiazepines Scrn U Oth Cocaine Metabols U Cannabinoids Screen Alcohol, Quantitative B-Hydroxybutyrate 06/28/18 06/28/18 06/28/18 17:00 17:47 18:56 WBC RBC Hgb Hct MCV MCH MCHC RDW Plt Count MPV Neut % (Auto) Lymph % (Auto) Mclennan % (Auto) Eos % (Auto) Baso % (Auto) Lymph # (Auto) Mclennan # (Auto) Eos # (Auto) Baso # (Auto) Absolute Neuts (auto) pCO2 pO2 HCO3 ABG pH ABG Total CO2 ABG O2 Saturation ABG Base Excess ABG Potassium VBG pH VBG pCO2 VBG HCO3 VBG Total CO2 VBG O2 Sat (Calc) VBG Base Excess VBG Potassium Sodium 141 Chloride 102 Glucose Lactate FiO2 Crit Value Called To Crit Value Called By Blood Gas Notified Time Potassium 3.9 Carbon Dioxide 30 Anion Gap 14 BUN 34 H Creatinine 0.9 Est GFR ( Amer) > 60 Est GFR (Non-Af Amer) > 60 POC Glucose (mg/dL) 156 H 153 H Random Glucose 168 H Calcium 9.5 Phosphorus Magnesium Total Bilirubin AST ALT Alkaline Phosphatase Total Protein Albumin Globulin Albumin/Globulin Ratio Triglycerides Cholesterol LDL Cholesterol Direct HDL Cholesterol Lipase TSH 3rd Generation Arterial Blood Potassium Venous Blood Potassium Urine Color Urine Appearance Urine pH Ur Specific [place] Urine Protein Urine Glucose (UA) Urine Ketones Urine Blood Urine Nitrate Urine Bilirubin Urine Urobilinogen Ur Leukocyte Esterase Urine RBC Urine WBC Ur Epithelial Cells Urine Bacteria Urine Opiates Screen Urine Methadone Screen Ur Barbiturates Screen Ur Phencyclidine Scrn Ur Amphetamines Screen U Benzodiazepines Scrn U Oth Cocaine Metabols U Cannabinoids Screen Alcohol, Quantitative B-Hydroxybutyrate 06/28/18 06/28/18 06/28/18 19:45 19:45 20:15 WBC RBC Hgb Hct MCV MCH MCHC RDW Plt Count MPV Neut % (Auto) Lymph % (Auto) Mclennan % (Auto) Eos % (Auto) Baso % (Auto) Lymph # (Auto) Mclennan # (Auto) Eos # (Auto) Baso # (Auto) Absolute Neuts (auto) pCO2 pO2 36 HCO3 ABG pH ABG Total CO2 ABG O2 Saturation ABG Base Excess ABG Potassium VBG pH 7.38 VBG pCO2 58.0 VBG HCO3 34.3 H VBG Total CO2 36.1 H VBG O2 Sat (Calc) 84.2 H VBG Base Excess 7.3 H VBG Potassium 3.7 Sodium 140 140.0 Chloride 101 104.0 Glucose 176 H Lactate 2.1 FiO2 21.0 Crit Value Called To Crit Value Called By Blood Gas Notified Time Potassium 3.8 Carbon Dioxide 31 Anion Gap 11 BUN 31 H Creatinine 1.0 Est GFR ( Amer) > 60 Est GFR (Non-Af Amer) > 60 POC Glucose (mg/dL) 176 H Random Glucose 168 H Calcium 9.0 Phosphorus Magnesium Total Bilirubin AST ALT Alkaline Phosphatase Total Protein Albumin Globulin Albumin/Globulin Ratio Triglycerides Cholesterol LDL Cholesterol Direct HDL Cholesterol Lipase TSH 3rd Generation Arterial Blood Potassium Venous Blood Potassium 3.7 Urine Color Urine Appearance Urine pH Ur Specific Dr[place] Urine Protein Urine Glucose (UA) Urine Ketones Urine Blood Urine Nitrate Urine Bilirubin Urine Urobilinogen Ur Leukocyte Esterase Urine RBC Urine WBC Ur Epithelial Cells Urine Bacteria Urine Opiates Screen Urine Methadone Screen Ur Barbiturates Screen Ur Phencyclidine Scrn Ur Amphetamines Screen U Benzodiazepines Scrn U Oth Cocaine Metabols U Cannabinoids Screen Alcohol, Quantitative B-Hydroxybutyrate 06/28/18 06/28/18 06/29/18 20:58 22:02 00:02 WBC RBC Hgb Hct MCV MCH MCHC RDW Plt Count MPV Neut % (Auto) Lymph % (Auto) Mclennan % (Auto) Eos % (Auto) Baso % (Auto) Lymph # (Auto) Mclennan # (Auto) Eos # (Auto) Baso # (Auto) Absolute Neuts (auto) pCO2 pO2 HCO3 ABG pH ABG Total CO2 ABG O2 Saturation ABG Base Excess ABG Potassium VBG pH VBG pCO2 VBG HCO3 VBG Total CO2 VBG O2 Sat (Calc) VBG Base Excess VBG Potassium Sodium 137 Chloride 103 Glucose Lactate FiO2 Crit Value Called To Crit Value Called By Blood Gas Notified Time Potassium 4.3 Carbon Dioxide 27 Anion Gap 10 BUN 27 H Creatinine 0.8 Est GFR ( Amer) > 60 Est GFR (Non-Af Amer) > 60 POC Glucose (mg/dL) 152 H 143 H Random Glucose 300 H Calcium 8.9 Phosphorus Magnesium Total Bilirubin AST ALT Alkaline Phosphatase Total Protein Albumin Globulin Albumin/Globulin Ratio Triglycerides Cholesterol LDL Cholesterol Direct HDL Cholesterol Lipase TSH 3rd Generation Arterial Blood Potassium Venous Blood Potassium Urine Color Urine Appearance Urine pH Ur Specific [place] Urine Protein Urine Glucose (UA) Urine Ketones Urine Blood Urine Nitrate Urine Bilirubin Urine Urobilinogen Ur Leukocyte Esterase Urine RBC Urine WBC Ur Epithelial Cells Urine Bacteria Urine Opiates Screen Urine Methadone Screen Ur Barbiturates Screen Ur Phencyclidine Scrn Ur Amphetamines Screen U Benzodiazepines Scrn U Oth Cocaine Metabols U Cannabinoids Screen Alcohol, Quantitative B-Hydroxybutyrate 06/29/18 06/29/18 06/29/18 00:02 00:10 01:53 WBC RBC Hgb Hct MCV MCH MCHC RDW Plt Count MPV Neut % (Auto) Lymph % (Auto) Mclennan % (Auto) Eos % (Auto) Baso % (Auto) Lymph # (Auto) Mclennan # (Auto) Eos # (Auto) Baso # (Auto) Absolute Neuts (auto) pCO2 pO2 120 H HCO3 ABG pH ABG Total CO2 ABG O2 Saturation ABG Base Excess ABG Potassium VBG pH 7.43 VBG pCO2 46.0 VBG HCO3 30.5 H VBG Total CO2 31.9 H VBG O2 Sat (Calc) 99.6 H VBG Base Excess 5.3 H VBG Potassium 4.2 Sodium 137.0 Chloride 105.0 Glucose 317 H Lactate 1.0 FiO2 21.0 Crit Value Called To Crit Value Called By Blood Gas Notified Time Potassium Carbon Dioxide Anion Gap BUN Creatinine Est GFR ( Amer) Est GFR (Non-Af Amer) POC Glucose (mg/dL) 325 H 258 H Random Glucose Calcium Phosphorus Magnesium Total Bilirubin AST ALT Alkaline Phosphatase Total Protein Albumin Globulin Albumin/Globulin Ratio Triglycerides Cholesterol LDL Cholesterol Direct HDL Cholesterol Lipase TSH 3rd Generation Arterial Blood Potassium Venous Blood Potassium 4.2 Urine Color Urine Appearance Urine pH Ur Specific Dr[place]coll Urine Protein Urine Glucose (UA) Urine Ketones Urine Blood Urine Nitrate Urine Bilirubin Urine Urobilinogen Ur Leukocyte Esterase Urine RBC Urine WBC Ur Epithelial Cells Urine Bacteria Urine Opiates Screen Urine Methadone Screen Ur Barbiturates Screen Ur Phencyclidine Scrn Ur Amphetamines Screen U Benzodiazepines Scrn U Oth Cocaine Metabols U Cannabinoids Screen Alcohol, Quantitative B-Hydroxybutyrate 06/29/18 06/29/18 06/29/18 04:11 04:15 04:15 WBC RBC Hgb Hct MCV MCH MCHC RDW Plt Count MPV Neut % (Auto) Lymph % (Auto) Mclennan % (Auto) Eos % (Auto) Baso % (Auto) Lymph # (Auto) Mclennan # (Auto) Eos # (Auto) Baso # (Auto) Absolute Neuts (auto) pCO2 pO2 HCO3 ABG pH ABG Total CO2 ABG O2 Saturation ABG Base Excess ABG Potassium VBG pH VBG pCO2 VBG HCO3 VBG Total CO2 VBG O2 Sat (Calc) VBG Base Excess VBG Potassium Sodium 140 Chloride 105 Glucose Lactate FiO2 Crit Value Called To Crit Value Called By Blood Gas Notified Time Potassium 3.8 Carbon Dioxide 29 Anion Gap 9 L BUN 22 H Creatinine 0.7 L Est GFR ( Amer) > 60 Est GFR (Non-Af Amer) > 60 POC Glucose (mg/dL) 130 H Random Glucose 127 H Calcium 9.1 Phosphorus Magnesium 1.5 L Total Bilirubin 0.4 AST 26 ALT 31 Alkaline Phosphatase 51 Total Protein 6.3 Albumin 3.7 Globulin 2.6 Albumin/Globulin Ratio 1.4 Triglycerides 71 Cholesterol 138 LDL Cholesterol Direct 66 HDL Cholesterol 53 Lipase 73 TSH 3rd Generation 2.67 Arterial Blood Potassium Venous Blood Potassium Urine Color Urine Appearance Urine pH Ur Specific Dr[place]coll Urine Protein Urine Glucose (UA) Urine Ketones Urine Blood Urine Nitrate Urine Bilirubin Urine Urobilinogen Ur Leukocyte Esterase Urine RBC Urine WBC Ur Epithelial Cells Urine Bacteria Urine Opiates Screen Urine Methadone Screen Ur Barbiturates Screen Ur Phencyclidine Scrn Ur Amphetamines Screen U Benzodiazepines Scrn U Oth Cocaine Metabols U Cannabinoids Screen Alcohol, Quantitative B-Hydroxybutyrate 06/29/18 05:59 WBC RBC Hgb Hct MCV MCH MCHC RDW Plt Count MPV Neut % (Auto) Lymph % (Auto) Mclennan % (Auto) Eos % (Auto) Baso % (Auto) Lymph # (Auto) Mclennan # (Auto) Eos # (Auto) Baso # (Auto) Absolute Neuts (auto) pCO2 pO2 HCO3 ABG pH ABG Total CO2 ABG O2 Saturation ABG Base Excess ABG Potassium VBG pH VBG pCO2 VBG HCO3 VBG Total CO2 VBG O2 Sat (Calc) VBG Base Excess VBG Potassium Sodium Chloride Glucose Lactate FiO2 Crit Value Called To Crit Value Called By Blood Gas Notified Time Potassium Carbon Dioxide Anion Gap BUN Creatinine Est GFR ( Amer) Est GFR (Non-Af Amer) POC Glucose (mg/dL) 89 Random Glucose Calcium Phosphorus Magnesium Total Bilirubin AST ALT Alkaline Phosphatase Total Protein Albumin Globulin Albumin/Globulin Ratio Triglycerides Cholesterol LDL Cholesterol Direct HDL Cholesterol Lipase TSH 3rd Generation Arterial Blood Potassium Venous Blood Potassium Urine Color Urine Appearance Urine pH Ur Specific Dr[place] Urine Protein Urine Glucose (UA) Urine Ketones Urine Blood Urine Nitrate Urine Bilirubin Urine Urobilinogen Ur Leukocyte Esterase Urine RBC Urine WBC Ur Epithelial Cells Urine Bacteria Urine Opiates Screen Urine Methadone Screen Ur Barbiturates Screen Ur Phencyclidine Scrn Ur Amphetamines Screen U Benzodiazepines Scrn U Oth Cocaine Metabols U Cannabinoids Screen Alcohol, Quantitative B-Hydroxybutyrate EKG/Cardiology Studies: Cardiology / EKG Studies 06/28/18 11:53 EKG [ELECTROCARDIOGRAM] Stat Comment: Reason For Exam: n/v Fingerstick Blood Sugar Results: 89 Review of Systems - Review of Systems All systems: reviewed and no additional remarkable complaints except (as stated in HPI) Critical Care Progress Note - Nutrition Nutrition: Nutrition Category Date Time Status Consistent Carbohydrate [DIET] Diets 06/28/18 Dinner Ordered Assessment/Plan - Assessment and Plan (Free Text) Plan: Mr Stacy is a 32 year old male with a PMHx of DM1 who presented with DKA in setting of nausea, vomiting, diarrhea, dehydration: Endocrine: #DKA - resolved, #DM1 - he was fluid resuscitated NS 2L - anion gap is now closed - NS was switched to D5 once glucose below 250, D5 is now off - insulin drip is now off, transitioned with levemir 5u sc overnight - he's tolerating a diet - evaluated by Dr Jose L mark - start on levemir 20u sc hs and humalog 8u sc ac tid Renal: #Lactic Acidosis - resolved, #Hypomagnesemia - mag repleted - K kept at ~ 4.0 ID: no active issues - lactic acidosis resolved Cardiovascular: no active issues - hemodynamically stable Pulmonary: no active issues - breathing comfortably on room air Neuro: no active issues - AAOx3, no deficits Patient's DKA has resolved, glucose is now controlled, electrolytes have been addressed, symptoms have improved, he remains afebrile and hemodynamically stable. He is safe to downgrade to med/surg. Seen and discussed with Dr Fields <Galindo Fields - Last Filed: 06/29/18 13:35> CCU Objective - Vital Signs / Intake & Output Vital Signs (Last 4 hours): Vital Signs Temp Pulse Resp BP Pulse Ox 06/29/18 11:15 98.5 F 87 18 117/78 99 Intake and Output (Last 8hrs): Intake & Output 06/28/18 06/29/18 06/29/18 22:59 06:59 14:59 Intake Total 1963 1553 Output Total 600 Balance 1963 953 Weight 153 lb Intake: IV 1513 1353 Left Forearm 1500 1353 Oral 450 200 Output: Urine 600 Urine, Voided 600 - Medications Active Medications: Active Medications Generic Name Dose Route Start Last Admin Trade Name Freq PRN Reason Stop Dose Admin Dextrose 0 ml 06/28/18 12:09 Dextrose 50% Inj IV STAT PRN Hypoglycemia Protocol Protocol Dextrose 1,000 mls @ 0 mls/hr 06/28/18 12:09 Dextrose 5% In Water 1000 Ml IV .Q0M PRN Hypoglycemia Protocol Protocol Per Protocol Insulin Detemir 20 unit 06/29/18 22:00 Levemir SC HS ALMA Insulin Human Lispro 0 units 06/29/18 07:30 06/29/18 12:00 Humalog Low SC Not Given ACHS ALMA Protocol Insulin Human Lispro 8 units 06/29/18 07:30 06/29/18 12:00 Humalog SC Not Given AC ALMA - Patient Studies Lab Studies: Lab Studies 06/29/18 06/29/18 06/29/18 Range/Units 11:45 08:00 07:50 pO2 (30-55) mm/Hg VBG pH (7.32-7.43) VBG pCO2 (40-60) VBG HCO3 (21-28) mmol/l VBG Total CO2 (22-28) mmol.L VBG O2 Sat (Calc) (40-65) % VBG Base Excess (0.0-2.0) mmol/L VBG Potassium (3.6-5.2) mmol/L Glucose (75-110) mg/dl Lactate (0.7-2.1) mmol/L FiO2 % Sodium 137 139 (132-148) mmol/L Potassium 4.0 3.9 (3.6-5.0) mmol/L Chloride 102 106 (98-107) mmol/L Carbon Dioxide 29 27 (21-33) mmol/L Anion Gap 10 10 (10-20) BUN 19 20 (7-21) mg/dL Creatinine 0.6 L 0.7 L (0.8-1.5) mg/dl Est GFR ( Amer) > 60 > 60 Est GFR (Non-Af Amer) > 60 > 60 POC Glucose (mg/dL) 94 (65-110) mg/dL Random Glucose 85 92 (70-110) mg/dL Calcium 8.9 8.9 (8.4-10.5) mg/dL Phosphorus (2.5-4.5) mg/dL Magnesium (1.7-2.2) mg/dL Total Bilirubin (0.2-1.3) mg/dL AST (17-59) U/L ALT (7-56) U/L Alkaline Phosphatase (38-126) U/L Total Protein (5.8-8.3) g/dL Albumin (3.0-4.8) g/dL Globulin gm/dL Albumin/Globulin Ratio (1.1-1.8) Triglycerides (35-160) mg/dL Cholesterol (130-200) mg/dL LDL Cholesterol Direct (0-129) mg/dL HDL Cholesterol (29-60) mg/dL Lipase (23-300) U/L TSH 3rd Generation (0.46-4.68) mIU/mL Venous Blood Potassium (3.6-5.2) mmol/L Urine Color (YELLOW) Urine Appearance (CLEAR) Urine pH (4.7-8.0) Ur Specific Driscoll (1.005-1.035) Urine Protein (<30 mg/dL) mg/dL Urine Glucose (UA) (NEGATIVE) mg/dL Urine Ketones (NEGATIVE) mg/dL Urine Blood (NEGATIVE) Urine Nitrate (NEGATIVE) Urine Bilirubin (NEGATIVE) Urine Urobilinogen (<1 E.U./dL) E.U./dL Ur Leukocyte Esterase (NEGATIVE) Keon/uL Urine RBC (0-2) /hpf Urine WBC (0-6) /hpf Ur Epithelial Cells (0-5) /hpf Urine Bacteria (NONE) /hpf Urine Opiates Screen (NEGATIVE) Urine Methadone Screen (NEGATIVE) Ur Barbiturates Screen (NEGATIVE) Ur Phencyclidine Scrn (NEGATIVE) Ur Amphetamines Screen (NEGATIVE) U Benzodiazepines Scrn (NEGATIVE) U Oth Cocaine Metabols (NEGATIVE) U Cannabinoids Screen (NEGATIVE) B-Hydroxybutyrate (0.02-0.27) mM 06/29/18 06/29/18 06/29/18 Range/Units 05:59 04:15 04:15 pO2 (30-55) mm/Hg VBG pH (7.32-7.43) VBG pCO2 (40-60) VBG HCO3 (21-28) mmol/l VBG Total CO2 (22-28) mmol.L VBG O2 Sat (Calc) (40-65) % VBG Base Excess (0.0-2.0) mmol/L VBG Potassium (3.6-5.2) mmol/L Glucose (75-110) mg/dl Lactate (0.7-2.1) mmol/L FiO2 % Sodium 140 (132-148) mmol/L Potassium 3.8 (3.6-5.0) mmol/L Chloride 105 (98-107) mmol/L Carbon Dioxide 29 (21-33) mmol/L Anion Gap 9 L (10-20) BUN 22 H (7-21) mg/dL Creatinine 0.7 L (0.8-1.5) mg/dl Est GFR ( Amer) > 60 Est GFR (Non-Af Amer) > 60 POC Glucose (mg/dL) 89 (65-110) mg/dL Random Glucose 127 H (70-110) mg/dL Calcium 9.1 (8.4-10.5) mg/dL Phosphorus (2.5-4.5) mg/dL Magnesium 1.5 L (1.7-2.2) mg/dL Total Bilirubin 0.4 (0.2-1.3) mg/dL AST 26 (17-59) U/L ALT 31 (7-56) U/L Alkaline Phosphatase 51 (38-126) U/L Total Protein 6.3 (5.8-8.3) g/dL Albumin 3.7 (3.0-4.8) g/dL Globulin 2.6 gm/dL Albumin/Globulin Ratio 1.4 (1.1-1.8) Triglycerides 71 (35-160) mg/dL Cholesterol 138 (130-200) mg/dL LDL Cholesterol Direct 66 (0-129) mg/dL HDL Cholesterol 53 (29-60) mg/dL Lipase 73 (23-300) U/L TSH 3rd Generation 2.67 (0.46-4.68) mIU/mL Venous Blood Potassium (3.6-5.2) mmol/L Urine Color (YELLOW) Urine Appearance (CLEAR) Urine pH (4.7-8.0) Ur Specific Driscoll (1.005-1.035) Urine Protein (<30 mg/dL) mg/dL Urine Glucose (UA) (NEGATIVE) mg/dL Urine Ketones (NEGATIVE) mg/dL Urine Blood (NEGATIVE) Urine Nitrate (NEGATIVE) Urine Bilirubin (NEGATIVE) Urine Urobilinogen (<1 E.U./dL) E.U./dL Ur Leukocyte Esterase (NEGATIVE) Keon/uL Urine RBC (0-2) /hpf Urine WBC (0-6) /hpf Ur Epithelial Cells (0-5) /hpf Urine Bacteria (NONE) /hpf Urine Opiates Screen (NEGATIVE) Urine Methadone Screen (NEGATIVE) Ur Barbiturates Screen (NEGATIVE) Ur Phencyclidine Scrn (NEGATIVE) Ur Amphetamines Screen (NEGATIVE) U Benzodiazepines Scrn (NEGATIVE) U Oth Cocaine Metabols (NEGATIVE) U Cannabinoids Screen (NEGATIVE) B-Hydroxybutyrate (0.02-0.27) mM 06/29/18 06/29/18 06/29/18 Range/Units 04:11 01:53 00:10 pO2 (30-55) mm/Hg VBG pH (7.32-7.43) VBG pCO2 (40-60) VBG HCO3 (21-28) mmol/l VBG Total CO2 (22-28) mmol.L VBG O2 Sat (Calc) (40-65) % VBG Base Excess (0.0-2.0) mmol/L VBG Potassium (3.6-5.2) mmol/L Glucose (75-110) mg/dl Lactate (0.7-2.1) mmol/L FiO2 % Sodium (132-148) mmol/L Potassium (3.6-5.0) mmol/L Chloride (98-107) mmol/L Carbon Dioxide (21-33) mmol/L Anion Gap (10-20) BUN (7-21) mg/dL Creatinine (0.8-1.5) mg/dl Est GFR ( Amer) Est GFR (Non-Af Amer) POC Glucose (mg/dL) 130 H 258 H 325 H (65-110) mg/dL Random Glucose (70-110) mg/dL Calcium (8.4-10.5) mg/dL Phosphorus (2.5-4.5) mg/dL Magnesium (1.7-2.2) mg/dL Total Bilirubin (0.2-1.3) mg/dL AST (17-59) U/L ALT (7-56) U/L Alkaline Phosphatase (38-126) U/L Total Protein (5.8-8.3) g/dL Albumin (3.0-4.8) g/dL Globulin gm/dL Albumin/Globulin Ratio (1.1-1.8) Triglycerides (35-160) mg/dL Cholesterol (130-200) mg/dL LDL Cholesterol Direct (0-129) mg/dL HDL Cholesterol (29-60) mg/dL Lipase (23-300) U/L TSH 3rd Generation (0.46-4.68) mIU/mL Venous Blood Potassium (3.6-5.2) mmol/L Urine Color (YELLOW) Urine Appearance (CLEAR) Urine pH (4.7-8.0) Ur Specific Driscoll (1.005-1.035) Urine Protein (<30 mg/dL) mg/dL Urine Glucose (UA) (NEGATIVE) mg/dL Urine Ketones (NEGATIVE) mg/dL Urine Blood (NEGATIVE) Urine Nitrate (NEGATIVE) Urine Bilirubin (NEGATIVE) Urine Urobilinogen (<1 E.U./dL) E.U./dL Ur Leukocyte Esterase (NEGATIVE) Keon/uL Urine RBC (0-2) /hpf Urine WBC (0-6) /hpf Ur Epithelial Cells (0-5) /hpf Urine Bacteria (NONE) /hpf Urine Opiates Screen (NEGATIVE) Urine Methadone Screen (NEGATIVE) Ur Barbiturates Screen (NEGATIVE) Ur Phencyclidine Scrn (NEGATIVE) Ur Amphetamines Screen (NEGATIVE) U Benzodiazepines Scrn (NEGATIVE) U Oth Cocaine Metabols (NEGATIVE) U Cannabinoids Screen (NEGATIVE) B-Hydroxybutyrate (0.02-0.27) mM 06/29/18 06/29/18 06/28/18 Range/Units 00:02 00:02 22:02 pO2 120 H (30-55) mm/Hg VBG pH 7.43 (7.32-7.43) VBG pCO2 46.0 (40-60) VBG HCO3 30.5 H (21-28) mmol/l VBG Total CO2 31.9 H (22-28) mmol.L VBG O2 Sat (Calc) 99.6 H (40-65) % VBG Base Excess 5.3 H (0.0-2.0) mmol/L VBG Potassium 4.2 (3.6-5.2) mmol/L Glucose 317 H (75-110) mg/dl Lactate 1.0 (0.7-2.1) mmol/L FiO2 21.0 % Sodium 137.0 137 (132-148) mmol/L Potassium 4.3 (3.6-5.0) mmol/L Chloride 105.0 103 (98-107) mmol/L Carbon Dioxide 27 (21-33) mmol/L Anion Gap 10 (10-20) BUN 27 H (7-21) mg/dL Creatinine 0.8 (0.8-1.5) mg/dl Est GFR ( Amer) > 60 Est GFR (Non-Af Amer) > 60 POC Glucose (mg/dL) 143 H (65-110) mg/dL Random Glucose 300 H (70-110) mg/dL Calcium 8.9 (8.4-10.5) mg/dL Phosphorus (2.5-4.5) mg/dL Magnesium (1.7-2.2) mg/dL Total Bilirubin (0.2-1.3) mg/dL AST (17-59) U/L ALT (7-56) U/L Alkaline Phosphatase (38-126) U/L Total Protein (5.8-8.3) g/dL Albumin (3.0-4.8) g/dL Globulin gm/dL Albumin/Globulin Ratio (1.1-1.8) Triglycerides (35-160) mg/dL Cholesterol (130-200) mg/dL LDL Cholesterol Direct (0-129) mg/dL HDL Cholesterol (29-60) mg/dL Lipase (23-300) U/L TSH 3rd Generation (0.46-4.68) mIU/mL Venous Blood Potassium 4.2 (3.6-5.2) mmol/L Urine Color (YELLOW) Urine Appearance (CLEAR) Urine pH (4.7-8.0) Ur Specific Driscoll (1.005-1.035) Urine Protein (<30 mg/dL) mg/dL Urine Glucose (UA) (NEGATIVE) mg/dL Urine Ketones (NEGATIVE) mg/dL Urine Blood (NEGATIVE) Urine Nitrate (NEGATIVE) Urine Bilirubin (NEGATIVE) Urine Urobilinogen (<1 E.U./dL) E.U./dL Ur Leukocyte Esterase (NEGATIVE) Keon/uL Urine RBC (0-2) /hpf Urine WBC (0-6) /hpf Ur Epithelial Cells (0-5) /hpf Urine Bacteria (NONE) /hpf Urine Opiates Screen (NEGATIVE) Urine Methadone Screen (NEGATIVE) Ur Barbiturates Screen (NEGATIVE) Ur Phencyclidine Scrn (NEGATIVE) Ur Amphetamines Screen (NEGATIVE) U Benzodiazepines Scrn (NEGATIVE) U Oth Cocaine Metabols (NEGATIVE) U Cannabinoids Screen (NEGATIVE) B-Hydroxybutyrate (0.02-0.27) mM 06/28/18 06/28/18 06/28/18 Range/Units 20:58 20:15 19:45 pO2 36 (30-55) mm/Hg VBG pH 7.38 (7.32-7.43) VBG pCO2 58.0 (40-60) VBG HCO3 34.3 H (21-28) mmol/l VBG Total CO2 36.1 H (22-28) mmol.L VBG O2 Sat (Calc) 84.2 H (40-65) % VBG Base Excess 7.3 H (0.0-2.0) mmol/L VBG Potassium 3.7 (3.6-5.2) mmol/L Glucose 176 H (75-110) mg/dl Lactate 2.1 (0.7-2.1) mmol/L FiO2 21.0 % Sodium 140.0 (132-148) mmol/L Potassium (3.6-5.0) mmol/L Chloride 104.0 (98-107) mmol/L Carbon Dioxide (21-33) mmol/L Anion Gap (10-20) BUN (7-21) mg/dL Creatinine (0.8-1.5) mg/dl Est GFR ( Amer) Est GFR (Non-Af Amer) POC Glucose (mg/dL) 152 H 176 H (65-110) mg/dL Random Glucose (70-110) mg/dL Calcium (8.4-10.5) mg/dL Phosphorus (2.5-4.5) mg/dL Magnesium (1.7-2.2) mg/dL Total Bilirubin (0.2-1.3) mg/dL AST (17-59) U/L ALT (7-56) U/L Alkaline Phosphatase (38-126) U/L Total Protein (5.8-8.3) g/dL Albumin (3.0-4.8) g/dL Globulin gm/dL Albumin/Globulin Ratio (1.1-1.8) Triglycerides (35-160) mg/dL Cholesterol (130-200) mg/dL LDL Cholesterol Direct (0-129) mg/dL HDL Cholesterol (29-60) mg/dL Lipase (23-300) U/L TSH 3rd Generation (0.46-4.68) mIU/mL Venous Blood Potassium 3.7 (3.6-5.2) mmol/L Urine Color (YELLOW) Urine Appearance (CLEAR) Urine pH (4.7-8.0) Ur Specific Driscoll (1.005-1.035) Urine Protein (<30 mg/dL) mg/dL Urine Glucose (UA) (NEGATIVE) mg/dL Urine Ketones (NEGATIVE) mg/dL Urine Blood (NEGATIVE) Urine Nitrate (NEGATIVE) Urine Bilirubin (NEGATIVE) Urine Urobilinogen (<1 E.U./dL) E.U./dL Ur Leukocyte Esterase (NEGATIVE) Keon/uL Urine RBC (0-2) /hpf Urine WBC (0-6) /hpf Ur Epithelial Cells (0-5) /hpf Urine Bacteria (NONE) /hpf Urine Opiates Screen (NEGATIVE) Urine Methadone Screen (NEGATIVE) Ur Barbiturates Screen (NEGATIVE) Ur Phencyclidine Scrn (NEGATIVE) Ur Amphetamines Screen (NEGATIVE) U Benzodiazepines Scrn (NEGATIVE) U Oth Cocaine Metabols (NEGATIVE) U Cannabinoids Screen (NEGATIVE) B-Hydroxybutyrate (0.02-0.27) mM 06/28/18 06/28/18 06/28/18 Range/Units 19:45 18:56 17:47 pO2 (30-55) mm/Hg VBG pH (7.32-7.43) VBG pCO2 (40-60) VBG HCO3 (21-28) mmol/l VBG Total CO2 (22-28) mmol.L VBG O2 Sat (Calc) (40-65) % VBG Base Excess (0.0-2.0) mmol/L VBG Potassium (3.6-5.2) mmol/L Glucose (75-110) mg/dl Lactate (0.7-2.1) mmol/L FiO2 % Sodium 140 (132-148) mmol/L Potassium 3.8 (3.6-5.0) mmol/L Chloride 101 (98-107) mmol/L Carbon Dioxide 31 (21-33) mmol/L Anion Gap 11 (10-20) BUN 31 H (7-21) mg/dL Creatinine 1.0 (0.8-1.5) mg/dl Est GFR ( Amer) > 60 Est GFR (Non-Af Amer) > 60 POC Glucose (mg/dL) 153 H 156 H (65-110) mg/dL Random Glucose 168 H (70-110) mg/dL Calcium 9.0 (8.4-10.5) mg/dL Phosphorus (2.5-4.5) mg/dL Magnesium (1.7-2.2) mg/dL Total Bilirubin (0.2-1.3) mg/dL AST (17-59) U/L ALT (7-56) U/L Alkaline Phosphatase (38-126) U/L Total Protein (5.8-8.3) g/dL Albumin (3.0-4.8) g/dL Globulin gm/dL Albumin/Globulin Ratio (1.1-1.8) Triglycerides (35-160) mg/dL Cholesterol (130-200) mg/dL LDL Cholesterol Direct (0-129) mg/dL HDL Cholesterol (29-60) mg/dL Lipase (23-300) U/L TSH 3rd Generation (0.46-4.68) mIU/mL Venous Blood Potassium (3.6-5.2) mmol/L Urine Color (YELLOW) Urine Appearance (CLEAR) Urine pH (4.7-8.0) Ur Specific Driscoll (1.005-1.035) Urine Protein (<30 mg/dL) mg/dL Urine Glucose (UA) (NEGATIVE) mg/dL Urine Ketones (NEGATIVE) mg/dL Urine Blood (NEGATIVE) Urine Nitrate (NEGATIVE) Urine Bilirubin (NEGATIVE) Urine Urobilinogen (<1 E.U./dL) E.U./dL Ur Leukocyte Esterase (NEGATIVE) Keon/uL Urine RBC (0-2) /hpf Urine WBC (0-6) /hpf Ur Epithelial Cells (0-5) /hpf Urine Bacteria (NONE) /hpf Urine Opiates Screen (NEGATIVE) Urine Methadone Screen (NEGATIVE) Ur Barbiturates Screen (NEGATIVE) Ur Phencyclidine Scrn (NEGATIVE) Ur Amphetamines Screen (NEGATIVE) U Benzodiazepines Scrn (NEGATIVE) U Oth Cocaine Metabols (NEGATIVE) U Cannabinoids Screen (NEGATIVE) B-Hydroxybutyrate (0.02-0.27) mM 06/28/18 06/28/18 06/28/18 Range/Units 17:00 16:56 16:44 pO2 25 L (30-55) mm/Hg VBG pH 7.40 (7.32-7.43) VBG pCO2 59.0 (40-60) VBG HCO3 36.5 H (21-28) mmol/l VBG Total CO2 38.3 H (22-28) mmol.L VBG O2 Sat (Calc) 60.0 (40-65) % VBG Base Excess 9.5 H (0.0-2.0) mmol/L VBG Potassium 4.1 (3.6-5.2) mmol/L Glucose 259 H (75-110) mg/dl Lactate 2.1 (0.7-2.1) mmol/L FiO2 21.0 % Sodium 141 141.0 (132-148) mmol/L Potassium 3.9 (3.6-5.0) mmol/L Chloride 102 101.0 (98-107) mmol/L Carbon Dioxide 30 (21-33) mmol/L Anion Gap 14 (10-20) BUN 34 H (7-21) mg/dL Creatinine 0.9 (0.8-1.5) mg/dl Est GFR ( Amer) > 60 Est GFR (Non-Af Amer) > 60 POC Glucose (mg/dL) 227 H (65-110) mg/dL Random Glucose 168 H (70-110) mg/dL Calcium 9.5 (8.4-10.5) mg/dL Phosphorus (2.5-4.5) mg/dL Magnesium (1.7-2.2) mg/dL Total Bilirubin (0.2-1.3) mg/dL AST (17-59) U/L ALT (7-56) U/L Alkaline Phosphatase (38-126) U/L Total Protein (5.8-8.3) g/dL Albumin (3.0-4.8) g/dL Globulin gm/dL Albumin/Globulin Ratio (1.1-1.8) Triglycerides (35-160) mg/dL Cholesterol (130-200) mg/dL LDL Cholesterol Direct (0-129) mg/dL HDL Cholesterol (29-60) mg/dL Lipase (23-300) U/L TSH 3rd Generation (0.46-4.68) mIU/mL Venous Blood Potassium 4.1 (3.6-5.2) mmol/L Urine Color (YELLOW) Urine Appearance (CLEAR) Urine pH (4.7-8.0) Ur Specific Driscoll (1.005-1.035) Urine Protein (<30 mg/dL) mg/dL Urine Glucose (UA) (NEGATIVE) mg/dL Urine Ketones (NEGATIVE) mg/dL Urine Blood (NEGATIVE) Urine Nitrate (NEGATIVE) Urine Bilirubin (NEGATIVE) Urine Urobilinogen (<1 E.U./dL) E.U./dL Ur Leukocyte Esterase (NEGATIVE) Keon/uL Urine RBC (0-2) /hpf Urine WBC (0-6) /hpf Ur Epithelial Cells (0-5) /hpf Urine Bacteria (NONE) /hpf Urine Opiates Screen (NEGATIVE) Urine Methadone Screen (NEGATIVE) Ur Barbiturates Screen (NEGATIVE) Ur Phencyclidine Scrn (NEGATIVE) Ur Amphetamines Screen (NEGATIVE) U Benzodiazepines Scrn (NEGATIVE) U Oth Cocaine Metabols (NEGATIVE) U Cannabinoids Screen (NEGATIVE) B-Hydroxybutyrate (0.02-0.27) mM 06/28/18 06/28/18 06/28/18 Range/Units 16:32 15:34 14:30 pO2 (30-55) mm/Hg VBG pH (7.32-7.43) VBG pCO2 (40-60) VBG HCO3 (21-28) mmol/l VBG Total CO2 (22-28) mmol.L VBG O2 Sat (Calc) (40-65) % VBG Base Excess (0.0-2.0) mmol/L VBG Potassium (3.6-5.2) mmol/L Glucose (75-110) mg/dl Lactate (0.7-2.1) mmol/L FiO2 % Sodium (132-148) mmol/L Potassium (3.6-5.0) mmol/L Chloride (98-107) mmol/L Carbon Dioxide (21-33) mmol/L Anion Gap (10-20) BUN (7-21) mg/dL Creatinine (0.8-1.5) mg/dl Est GFR ( Amer) Est GFR (Non-Af Amer) POC Glucose (mg/dL) 264 H 357 H 442 H* (65-110) mg/dL Random Glucose (70-110) mg/dL Calcium (8.4-10.5) mg/dL Phosphorus (2.5-4.5) mg/dL Magnesium (1.7-2.2) mg/dL Total Bilirubin (0.2-1.3) mg/dL AST (17-59) U/L ALT (7-56) U/L Alkaline Phosphatase (38-126) U/L Total Protein (5.8-8.3) g/dL Albumin (3.0-4.8) g/dL Globulin gm/dL Albumin/Globulin Ratio (1.1-1.8) Triglycerides (35-160) mg/dL Cholesterol (130-200) mg/dL LDL Cholesterol Direct (0-129) mg/dL HDL Cholesterol (29-60) mg/dL Lipase (23-300) U/L TSH 3rd Generation (0.46-4.68) mIU/mL Venous Blood Potassium (3.6-5.2) mmol/L Urine Color (YELLOW) Urine Appearance (CLEAR) Urine pH (4.7-8.0) Ur Specific Driscoll (1.005-1.035) Urine Protein (<30 mg/dL) mg/dL Urine Glucose (UA) (NEGATIVE) mg/dL Urine Ketones (NEGATIVE) mg/dL Urine Blood (NEGATIVE) Urine Nitrate (NEGATIVE) Urine Bilirubin (NEGATIVE) Urine Urobilinogen (<1 E.U./dL) E.U./dL Ur Leukocyte Esterase (NEGATIVE) Keon/uL Urine RBC (0-2) /hpf Urine WBC (0-6) /hpf Ur Epithelial Cells (0-5) /hpf Urine Bacteria (NONE) /hpf Urine Opiates Screen (NEGATIVE) Urine Methadone Screen (NEGATIVE) Ur Barbiturates Screen (NEGATIVE) Ur Phencyclidine Scrn (NEGATIVE) Ur Amphetamines Screen (NEGATIVE) U Benzodiazepines Scrn (NEGATIVE) U Oth Cocaine Metabols (NEGATIVE) U Cannabinoids Screen (NEGATIVE) B-Hydroxybutyrate (0.02-0.27) mM 06/28/18 06/28/18 06/28/18 Range/Units 14:00 14:00 12:34 pO2 (30-55) mm/Hg VBG pH (7.32-7.43) VBG pCO2 (40-60) VBG HCO3 (21-28) mmol/l VBG Total CO2 (22-28) mmol.L VBG O2 Sat (Calc) (40-65) % VBG Base Excess (0.0-2.0) mmol/L VBG Potassium (3.6-5.2) mmol/L Glucose (75-110) mg/dl Lactate (0.7-2.1) mmol/L FiO2 % Sodium 140 (132-148) mmol/L Potassium 5.0 (3.6-5.0) mmol/L Chloride 97 L (98-107) mmol/L Carbon Dioxide 23 (21-33) mmol/L Anion Gap 25 H (10-20) BUN 36 H (7-21) mg/dL Creatinine 1.1 (0.8-1.5) mg/dl Est GFR ( Amer) > 60 Est GFR (Non-Af Amer) > 60 POC Glucose (mg/dL) (65-110) mg/dL Random Glucose 633 H* (70-110) mg/dL Calcium 10.1 (8.4-10.5) mg/dL Phosphorus 5.0 H (2.5-4.5) mg/dL Magnesium 2.0 (1.7-2.2) mg/dL Total Bilirubin 0.4 (0.2-1.3) mg/dL AST 25 (17-59) U/L ALT 27 (7-56) U/L Alkaline Phosphatase 65 (38-126) U/L Total Protein 7.0 (5.8-8.3) g/dL Albumin 4.5 (3.0-4.8) g/dL Globulin 2.5 gm/dL Albumin/Globulin Ratio 1.8 (1.1-1.8) Triglycerides (35-160) mg/dL Cholesterol (130-200) mg/dL LDL Cholesterol Direct (0-129) mg/dL HDL Cholesterol (29-60) mg/dL Lipase (23-300) U/L TSH 3rd Generation (0.46-4.68) mIU/mL Venous Blood Potassium (3.6-5.2) mmol/L Urine Color Yellow (YELLOW) Urine Appearance Clear (CLEAR) Urine pH 6.0 (4.7-8.0) Ur Specific Driscoll 1.015 (1.005-1.035) Urine Protein 30 H (<30 mg/dL) mg/dL Urine Glucose (UA) >=1000 (NEGATIVE) mg/dL Urine Ketones 40 H (NEGATIVE) mg/dL Urine Blood Small H (NEGATIVE) Urine Nitrate Negative (NEGATIVE) Urine Bilirubin Negative (NEGATIVE) Urine Urobilinogen 0.2 (<1 E.U./dL) E.U./dL Ur Leukocyte Esterase Negative (NEGATIVE) Keon/uL Urine RBC 5 - 10 H (0-2) /hpf Urine WBC 0 - 2 (0-6) /hpf Ur Epithelial Cells None (0-5) /hpf Urine Bacteria Small (NONE) /hpf Urine Opiates Screen Negative (NEGATIVE) Urine Methadone Screen Negative (NEGATIVE) Ur Barbiturates Screen Negative (NEGATIVE) Ur Phencyclidine Scrn Negative (NEGATIVE) Ur Amphetamines Screen Negative (NEGATIVE) U Benzodiazepines Scrn Negative (NEGATIVE) U Oth Cocaine Metabols Negative (NEGATIVE) U Cannabinoids Screen Positive H (NEGATIVE) B-Hydroxybutyrate 4.39 H (0.02-0.27) mM Laboratory Results - last 24 hr 06/28/18 06/28/18 06/28/18 12:34 14:00 14:00 pO2 VBG pH VBG pCO2 VBG HCO3 VBG Total CO2 VBG O2 Sat (Calc) VBG Base Excess VBG Potassium Glucose Lactate FiO2 Sodium 140 Potassium 5.0 Chloride 97 L Carbon Dioxide 23 Anion Gap 25 H BUN 36 H Creatinine 1.1 Est GFR ( Amer) > 60 Est GFR (Non-Af Amer) > 60 POC Glucose (mg/dL) Random Glucose 633 H* Calcium 10.1 Phosphorus 5.0 H Magnesium 2.0 Total Bilirubin 0.4 AST 25 ALT 27 Alkaline Phosphatase 65 Total Protein 7.0 Albumin 4.5 Globulin 2.5 Albumin/Globulin Ratio 1.8 Triglycerides Cholesterol LDL Cholesterol Direct HDL Cholesterol Lipase TSH 3rd Generation Venous Blood Potassium Urine Color Yellow Urine Appearance Clear Urine pH 6.0 Ur Specific Driscoll 1.015 Urine Protein 30 H Urine Glucose (UA) >=1000 Urine Ketones 40 H Urine Blood Small H Urine Nitrate Negative Urine Bilirubin Negative Urine Urobilinogen 0.2 Ur Leukocyte Esterase Negative Urine RBC 5 - 10 H Urine WBC 0 - 2 Ur Epithelial Cells None Urine Bacteria Small Urine Opiates Screen Negative Urine Methadone Screen Negative Ur Barbiturates Screen Negative Ur Phencyclidine Scrn Negative Ur Amphetamines Screen Negative U Benzodiazepines Scrn Negative U Oth Cocaine Metabols Negative U Cannabinoids Screen Positive H B-Hydroxybutyrate 4.39 H 06/28/18 06/28/18 06/28/18 14:30 15:34 16:32 pO2 VBG pH VBG pCO2 VBG HCO3 VBG Total CO2 VBG O2 Sat (Calc) VBG Base Excess VBG Potassium Glucose Lactate FiO2 Sodium Potassium Chloride Carbon Dioxide Anion Gap BUN Creatinine Est GFR ( Amer) Est GFR (Non-Af Amer) POC Glucose (mg/dL) 442 H* 357 H 264 H Random Glucose Calcium Phosphorus Magnesium Total Bilirubin AST ALT Alkaline Phosphatase Total Protein Albumin Globulin Albumin/Globulin Ratio Triglycerides Cholesterol LDL Cholesterol Direct HDL Cholesterol Lipase TSH 3rd Generation Venous Blood Potassium Urine Color Urine Appearance Urine pH Ur Specific [place]coll Urine Protein Urine Glucose (UA) Urine Ketones Urine Blood Urine Nitrate Urine Bilirubin Urine Urobilinogen Ur Leukocyte Esterase Urine RBC Urine WBC Ur Epithelial Cells Urine Bacteria Urine Opiates Screen Urine Methadone Screen Ur Barbiturates Screen Ur Phencyclidine Scrn Ur Amphetamines Screen U Benzodiazepines Scrn U Oth Cocaine Metabols U Cannabinoids Screen B-Hydroxybutyrate 06/28/18 06/28/18 06/28/18 16:44 16:56 17:00 pO2 25 L VBG pH 7.40 VBG pCO2 59.0 VBG HCO3 36.5 H VBG Total CO2 38.3 H VBG O2 Sat (Calc) 60.0 VBG Base Excess 9.5 H VBG Potassium 4.1 Glucose 259 H Lactate 2.1 FiO2 21.0 Sodium 141.0 141 Potassium 3.9 Chloride 101.0 102 Carbon Dioxide 30 Anion Gap 14 BUN 34 H Creatinine 0.9 Est GFR ( Amer) > 60 Est GFR (Non-Af Amer) > 60 POC Glucose (mg/dL) 227 H Random Glucose 168 H Calcium 9.5 Phosphorus Magnesium Total Bilirubin AST ALT Alkaline Phosphatase Total Protein Albumin Globulin Albumin/Globulin Ratio Triglycerides Cholesterol LDL Cholesterol Direct HDL Cholesterol Lipase TSH 3rd Generation Venous Blood Potassium 4.1 Urine Color Urine Appearance Urine pH Ur Specific [place] Urine Protein Urine Glucose (UA) Urine Ketones Urine Blood Urine Nitrate Urine Bilirubin Urine Urobilinogen Ur Leukocyte Esterase Urine RBC Urine WBC Ur Epithelial Cells Urine Bacteria Urine Opiates Screen Urine Methadone Screen Ur Barbiturates Screen Ur Phencyclidine Scrn Ur Amphetamines Screen U Benzodiazepines Scrn U Oth Cocaine Metabols U Cannabinoids Screen B-Hydroxybutyrate 06/28/18 06/28/18 06/28/18 17:47 18:56 19:45 pO2 VBG pH VBG pCO2 VBG HCO3 VBG Total CO2 VBG O2 Sat (Calc) VBG Base Excess VBG Potassium Glucose Lactate FiO2 Sodium 140 Potassium 3.8 Chloride 101 Carbon Dioxide 31 Anion Gap 11 BUN 31 H Creatinine 1.0 Est GFR ( Amer) > 60 Est GFR (Non-Af Amer) > 60 POC Glucose (mg/dL) 156 H 153 H Random Glucose 168 H Calcium 9.0 Phosphorus Magnesium Total Bilirubin AST ALT Alkaline Phosphatase Total Protein Albumin Globulin Albumin/Globulin Ratio Triglycerides Cholesterol LDL Cholesterol Direct HDL Cholesterol Lipase TSH 3rd Generation Venous Blood Potassium Urine Color Urine Appearance Urine pH Ur Specific [place] Urine Protein Urine Glucose (UA) Urine Ketones Urine Blood Urine Nitrate Urine Bilirubin Urine Urobilinogen Ur Leukocyte Esterase Urine RBC Urine WBC Ur Epithelial Cells Urine Bacteria Urine Opiates Screen Urine Methadone Screen Ur Barbiturates Screen Ur Phencyclidine Scrn Ur Amphetamines Screen U Benzodiazepines Scrn U Oth Cocaine Metabols U Cannabinoids Screen B-Hydroxybutyrate 06/28/18 06/28/18 06/28/18 19:45 20:15 20:58 pO2 36 VBG pH 7.38 VBG pCO2 58.0 VBG HCO3 34.3 H VBG Total CO2 36.1 H VBG O2 Sat (Calc) 84.2 H VBG Base Excess 7.3 H VBG Potassium 3.7 Glucose 176 H Lactate 2.1 FiO2 21.0 Sodium 140.0 Potassium Chloride 104.0 Carbon Dioxide Anion Gap BUN Creatinine Est GFR ( Amer) Est GFR (Non-Af Amer) POC Glucose (mg/dL) 176 H 152 H Random Glucose Calcium Phosphorus Magnesium Total Bilirubin AST ALT Alkaline Phosphatase Total Protein Albumin Globulin Albumin/Globulin Ratio Triglycerides Cholesterol LDL Cholesterol Direct HDL Cholesterol Lipase TSH 3rd Generation Venous Blood Potassium 3.7 Urine Color Urine Appearance Urine pH Ur Specific [place] Urine Protein Urine Glucose (UA) Urine Ketones Urine Blood Urine Nitrate Urine Bilirubin Urine Urobilinogen Ur Leukocyte Esterase Urine RBC Urine WBC Ur Epithelial Cells Urine Bacteria Urine Opiates Screen Urine Methadone Screen Ur Barbiturates Screen Ur Phencyclidine Scrn Ur Amphetamines Screen U Benzodiazepines Scrn U Oth Cocaine Metabols U Cannabinoids Screen B-Hydroxybutyrate 06/28/18 06/29/18 06/29/18 22:02 00:02 00:02 pO2 120 H VBG pH 7.43 VBG pCO2 46.0 VBG HCO3 30.5 H VBG Total CO2 31.9 H VBG O2 Sat (Calc) 99.6 H VBG Base Excess 5.3 H VBG Potassium 4.2 Glucose 317 H Lactate 1.0 FiO2 21.0 Sodium 137 137.0 Potassium 4.3 Chloride 103 105.0 Carbon Dioxide 27 Anion Gap 10 BUN 27 H Creatinine 0.8 Est GFR ( Amer) > 60 Est GFR (Non-Af Amer) > 60 POC Glucose (mg/dL) 143 H Random Glucose 300 H Calcium 8.9 Phosphorus Magnesium Total Bilirubin AST ALT Alkaline Phosphatase Total Protein Albumin Globulin Albumin/Globulin Ratio Triglycerides Cholesterol LDL Cholesterol Direct HDL Cholesterol Lipase TSH 3rd Generation Venous Blood Potassium 4.2 Urine Color Urine Appearance Urine pH Ur Specific [place] Urine Protein Urine Glucose (UA) Urine Ketones Urine Blood Urine Nitrate Urine Bilirubin Urine Urobilinogen Ur Leukocyte Esterase Urine RBC Urine WBC Ur Epithelial Cells Urine Bacteria Urine Opiates Screen Urine Methadone Screen Ur Barbiturates Screen Ur Phencyclidine Scrn Ur Amphetamines Screen U Benzodiazepines Scrn U Oth Cocaine Metabols U Cannabinoids Screen B-Hydroxybutyrate 06/29/18 06/29/18 06/29/18 00:10 01:53 04:11 pO2 VBG pH VBG pCO2 VBG HCO3 VBG Total CO2 VBG O2 Sat (Calc) VBG Base Excess VBG Potassium Glucose Lactate FiO2 Sodium Potassium Chloride Carbon Dioxide Anion Gap BUN Creatinine Est GFR ( Amer) Est GFR (Non-Af Amer) POC Glucose (mg/dL) 325 H 258 H 130 H Random Glucose Calcium Phosphorus Magnesium Total Bilirubin AST ALT Alkaline Phosphatase Total Protein Albumin Globulin Albumin/Globulin Ratio Triglycerides Cholesterol LDL Cholesterol Direct HDL Cholesterol Lipase TSH 3rd Generation Venous Blood Potassium Urine Color Urine Appearance Urine pH Ur Specific Driscoll Urine Protein Urine Glucose (UA) Urine Ketones Urine Blood Urine Nitrate Urine Bilirubin Urine Urobilinogen Ur Leukocyte Esterase Urine RBC Urine WBC Ur Epithelial Cells Urine Bacteria Urine Opiates Screen Urine Methadone Screen Ur Barbiturates Screen Ur Phencyclidine Scrn Ur Amphetamines Screen U Benzodiazepines Scrn U Oth Cocaine Metabols U Cannabinoids Screen B-Hydroxybutyrate 06/29/18 06/29/18 06/29/18 04:15 04:15 05:59 pO2 VBG pH VBG pCO2 VBG HCO3 VBG Total CO2 VBG O2 Sat (Calc) VBG Base Excess VBG Potassium Glucose Lactate FiO2 Sodium 140 Potassium 3.8 Chloride 105 Carbon Dioxide 29 Anion Gap 9 L BUN 22 H Creatinine 0.7 L Est GFR ( Amer) > 60 Est GFR (Non-Af Amer) > 60 POC Glucose (mg/dL) 89 Random Glucose 127 H Calcium 9.1 Phosphorus Magnesium 1.5 L Total Bilirubin 0.4 AST 26 ALT 31 Alkaline Phosphatase 51 Total Protein 6.3 Albumin 3.7 Globulin 2.6 Albumin/Globulin Ratio 1.4 Triglycerides 71 Cholesterol 138 LDL Cholesterol Direct 66 HDL Cholesterol 53 Lipase 73 TSH 3rd Generation 2.67 Venous Blood Potassium Urine Color Urine Appearance Urine pH Ur Specific Driscoll Urine Protein Urine Glucose (UA) Urine Ketones Urine Blood Urine Nitrate Urine Bilirubin Urine Urobilinogen Ur Leukocyte Esterase Urine RBC Urine WBC Ur Epithelial Cells Urine Bacteria Urine Opiates Screen Urine Methadone Screen Ur Barbiturates Screen Ur Phencyclidine Scrn Ur Amphetamines Screen U Benzodiazepines Scrn U Oth Cocaine Metabols U Cannabinoids Screen B-Hydroxybutyrate 06/29/18 06/29/18 06/29/18 07:50 08:00 11:45 pO2 VBG pH VBG pCO2 VBG HCO3 VBG Total CO2 VBG O2 Sat (Calc) VBG Base Excess VBG Potassium Glucose Lactate FiO2 Sodium 139 137 Potassium 3.9 4.0 Chloride 106 102 Carbon Dioxide 27 29 Anion Gap 10 10 BUN 20 19 Creatinine 0.7 L 0.6 L Est GFR ( Amer) > 60 > 60 Est GFR (Non-Af Amer) > 60 > 60 POC Glucose (mg/dL) 94 Random Glucose 92 85 Calcium 8.9 8.9 Phosphorus Magnesium Total Bilirubin AST ALT Alkaline Phosphatase Total Protein Albumin Globulin Albumin/Globulin Ratio Triglycerides Cholesterol LDL Cholesterol Direct HDL Cholesterol Lipase TSH 3rd Generation Venous Blood Potassium Urine Color Urine Appearance Urine pH Ur Specific Driscoll Urine Protein Urine Glucose (UA) Urine Ketones Urine Blood Urine Nitrate Urine Bilirubin Urine Urobilinogen Ur Leukocyte Esterase Urine RBC Urine WBC Ur Epithelial Cells Urine Bacteria Urine Opiates Screen Urine Methadone Screen Ur Barbiturates Screen Ur Phencyclidine Scrn Ur Amphetamines Screen U Benzodiazepines Scrn U Oth Cocaine Metabols U Cannabinoids Screen B-Hydroxybutyrate Critical Care Progress Note - Nutrition Nutrition: Nutrition Category Date Time Status Consistent Carbohydrate [DIET] Diets 06/28/18 Dinner Ordered Assessment/Plan - Assessment and Plan (Free Text) Plan: I saw and examined the patient on rounds with the resident, agree with note with following additions/exceptions: Patient is 32yo male with PMHx with IDDM, presented with mild DKA, started on insulin drip. AG closed, off insulin drip. Doing well. Afebrile, HD stable Transitioned to long acting insulin. Seen by Endo, consult appreciated. IDDM DKA Dehyhdration Recommend: - cont with supp o2 as needed, duonebs PRN - NO ID issues - DC IVF - Diabetic diet - Levemir QHS, Sliding scale - Diabetic education - GI ppx - DVT ppx - Transfer to med surg
[2018-06-29] MEDS: Insulin Lispro (humaLOG) LOW Coverage SC SCH ×4 (08:31→22:00)
[2018-06-29] MEDS: Insulin Lispro 1 UNITS/0.01 ML SC SCH ×3 (08:36→16:32)
[2018-06-29 08:49] LABS: BLOOD UREA NITROGEN 20 mg/dL (7-21); CALCIUM 8.9 mg/dL (8.4-10.5); GFR NON-AFRICAN AMERICAN > 60
[2018-06-29 11:46] VITALS: RESP 18
--- NOTE | 2018-06-29 11:56 | CARD ---
APPROVED REPORT Date of service: 06/28/2018 EKG Measurement Heart [id number] <Conclusion> Normal sinus rhythm Normal ECG
[2018-06-29 12:06] LABS: BLOOD UREA NITROGEN 19 mg/dL (7-21); CALCIUM 8.9 mg/dL (8.4-10.5); GFR NON-AFRICAN AMERICAN > 60
--- NOTE | 2018-06-29 13:20 | CP.PCM.PN ---
<Lobo Louis - Last Filed: 06/29/18 13:16> Subjective - Date & Time of Evaluation Date of Evaluation: 06/29/18 Time of Evaluation: 09:00 - Subjective Subjective: Dottie Louis DO PGY1 - Internal Medicine Special Warfare Operator - Hospitalist Progress Note Seen and examined at bedside in ICU this morning; Only complaining of weakness this AM. No acute events reported overnight; Abd pain n/v resolved Tolerating diet well Objective - Vital Signs/Intake and Output Vital Signs (last 24 hours): Temp Pulse Resp BP Pulse Ox 98.5 F 87 18 117/78 99 06/29/18 11:15 06/29/18 11:15 06/29/18 11:15 06/29/18 11:15 06/29/18 11:15 Intake and Output: 06/29/18 06/29/18 06:59 18:59 Intake Total 1553 Output Total 600 Balance 953 - Medications Medications: Current Medications Dextrose (Dextrose 50% Inj) 0 ml IV STAT PRN; Protocol PRN Reason: Hypoglycemia Protocol Dextrose (Dextrose 5% In Water 1000 Ml) 1,000 mls @ 0 mls/hr IV .Q0M PRN; Protocol PRN Reason: Hypoglycemia Protocol Insulin Detemir (Levemir) 20 unit SC HS [facility] Insulin Human Lispro (Humalog Low) 0 units SC ACHS [facility]; Protocol Last Admin: 06/29/18 12:00 Dose: Not Given Insulin Human Lispro (Humalog) 8 units SC AC [facility] Last Admin: 06/29/18 12:00 Dose: Not Given - Labs Labs: 06/28/18 12:34 06/29/18 11:45 - Constitutional Appears: Well, Non-toxic, No Acute Distress - Head Exam Head Exam: ATRAUMATIC, NORMOCEPHALIC - Eye Exam Eye Exam: EOMI, Normal appearance, PERRL - Respiratory Exam Respiratory Exam: Clear to Auscultation Bilateral, NORMAL BREATHING PATTERN - Cardiovascular Exam Cardiovascular Exam: REGULAR RHYTHM. absent: Systolic Murmur - GI/Abdominal Exam GI & Abdominal Exam: Normal Bowel Sounds, Soft. absent: Tenderness - Extremities Exam Extremities exam: Positive for: normal inspection. Negative for: pedal edema, pedal pulses present - Back Exam Back exam: absent: CVA tenderness (L), CVA tenderness (R) - Neurological Exam Neurological exam: Alert, CN II-XII Intact, Oriented x3 - Psychiatric Exam Psychiatric exam: Normal Affect, Normal Mood - Skin Skin Exam: Dry, Intact, Normal Color, Warm Assessment and Plan - Assessment and Plan (Free Text) Assessment: Patient is 32M who presented to [facility] ED on 06/28 w/ 2 days of complaints of decreased appetite, n/v, polyuria, polydypsia after running out of his insulin 3 days ago. Patient admitted for [facility] Plan: HHS AG on presentation 20; Glucose 633 ; AG closed hours after admission Started on Levemir 20HS + Humalog 8 AC ISS Low ACHS Will verify which insulin is covered by his insurance and provide with at bedside today Fingersticks ACHS Carb consistent diet Stepped down from ICU Endocrinology Following, Appreciate Reccs PPX: SCD Patient was seen, examined, and discussed w/ attending Dr. Augusta Louis DO PGY1 - Internal Medicine Special Warfare Operator <Augusta Louis R - Last Filed: 06/29/18 15:07> Objective - Vital Signs/Intake and Output Vital Signs (last 24 hours): Temp Pulse Resp BP Pulse Ox 98.7 F 93 H 18 118/78 97 06/29/18 14:00 06/29/18 14:00 06/29/18 14:00 06/29/18 14:00 06/29/18 14:00 Intake and Output: 06/29/18 06/29/18 06:59 18:59 Intake Total 1553 240 Output Total 600 Balance 953 240 - Medications Medications: Current Medications Dextrose (Dextrose 50% Inj) 0 ml IV STAT PRN; Protocol PRN Reason: Hypoglycemia Protocol Dextrose (Dextrose 5% In Water 1000 Ml) 1,000 mls @ 0 mls/hr IV .Q0M PRN; Protocol PRN Reason: Hypoglycemia Protocol Insulin Detemir (Levemir) 20 unit SC HS [facility] Insulin Human Lispro (Humalog Low) 0 units SC ACHS [facility]; Protocol Last Admin: 06/29/18 12:00 Dose: Not Given Insulin Human Lispro (Humalog) 8 units SC AC [facility] Last Admin: 06/29/18 12:00 Dose: Not Given - Labs Labs: 06/28/18 12:34 06/29/18 11:45 Attending/Attestation - Attestation I have personally seen and examined this patient.: Yes I have fully participated in the care of the patient.: Yes I have reviewed all pertinent clinical information, including history, physical exam and plan: Yes Notes (Text): Patient seen and examined by me with resident at approximately 10AM on 06/29/18. Case including HPI, physical exam, and assessment and plan discussed with resident. Agree with above with following additions/corrections. Patient is a 32 year old male with past medical history significant for type 1 insulin dependent diabetes that presented to the emergency room with nausea, vomiting, and decreased appetite. Patient states he is feeling better. Nausea, vomiting, and abdominal pain resolved. Patient states he is tolerating diet. States he feels weak. No chest pain or shortness of breath. No headaches or dizziness. No fevers or chills. No dysuria. Physical exam: General: Awake and alert sitting up in chair in no acute distress HEENT: Normocephalic, atraumatic. Extraocular muscles intact. Pupils equal and reactive, no scleral icterus. Oropharynx is pink and moist. Neck is supple. Cardiovascular: Normal rhythm. Normal S1 and S2. No murmurs, rubs, or gallops appreciated Pulmonary: Normal respiratory effort. No rhonchi, rales, or wheezing a ppreciated. Gastrointestinal: Soft. Nondistended. Nontender. Positive bowel sounds all 4 quadrants. No guarding. Musculoskeletal: Moves all extremities. No calf tenderness. No edema appreciated Central nervous system: AAO X 3. CN 2-12 grossly intact. Dermatologic: Skin warm and dry. Assessment and plan: Patient is a 32 year old male with past medical history significant for type 1 insulin dependent diabetes that presented to the emergency room with nausea, vomiting, and decreased appetite. Patient found to have DKA 1. DKA. Type 1 DM. S/P insulin drip. Anion gap closed. B-hydroxybutyrate was 4.39. Hgb A1C pending. Patient tolerating diet. Relations Mgr recommendations appreciated. Continue insulin sliding scale. Continue humalog and levemir per outdoor emergency care technician. Continue to monitor accuchecks. 2. Hypomagnesemia. Magnesium repleted. Follow up repeat labs. 3. Anemia. Unsure of baseline H&H. No signs of acute bleeding. Continue to monitor for now. 4. Marijuana use. UDS positive for cannabinoids. Patient counseled on cessation. Case was discussed in detail with the patient regarding current diagnosis, study results, and treatment plan. All questions answered.
--- NOTE | 2018-06-29 15:41 | PN ---
DATE: 06/29/2018 ENDO FOLLOWUP NOTE ROOM: ICU 129, room 7. SUBJECTIVE: This is a 32-year-old male with recent uncontrolled type 1 insulin-dependent diabetes with recent drug omission and presenting here with intractable vomiting and dyspepsia with marked hyperglycemic accelerations and is now being followed closely for metabolic management. His glycemic levels overnight have ranged from 89-130 mg/dL. His chemistry showed a BUN of 20, sodium 139, potassium 3.9, chloride 106, CO2 of 27, glucose 92 and creatinine 0.7. His TSH is 2.67. His hemoglobin A1c is pending at this time. ASSESSMENT: This is a 32-year-old male with uncontrolled and decompensated type 1 insulin-dependent diabetes, presenting here with hyperosmolar hyperglycemic state with mild ketosis and dehydration with prerenal azotemia and is now improving clinically and metabolically as noted thereof. PLAN OF MANAGEMENT: The patient received vigorous IV hydration and intensive insulin therapy as given overnight and was actually on an insulin drip infusion which was discontinued last night as noted. We will modify his coverage scale to a low-dose algorithm using Humalog insulin as given. We will also continue the modified basal and bolus insulin drug regimen as ordered with Humalog given as 8 units t.i.d. before meals as given. We will continue the basal insulin given as Levemir at 20 units subcu at bedtime daily as given. We will obtain serial chemistries and supplement accordingly as needed. We will follow. Usha Domingo MD
[2018-06-29] MEDS ORDERED: Insulin Detemir 100 units/ml Vial (Levemir) SC SCH (22:00)
[2018-06-29 22:16] VITALS: O2SAT 99
[2018-06-30 08:23] VITALS: BP 123/78; PULSE 94; TEMP 98.4
[2018-06-30] MEDS: Insulin Lispro (humaLOG) LOW Coverage SC SCH ×2 (10:13→11:38)
[2018-06-30] MEDS: Insulin Lispro 1 UNITS/0.01 ML SC SCH ×2 (10:13→11:35)
--- NOTE | 2018-06-30 11:14 | CP.PCM.DIS ---
<Lyn Byrnes - Last Filed: 06/30/18 17:03> Provider - Provider Date of Admission: 06/28/18 14:15 Attending physician: Moisés Bain MD Primary care physician: Fred Mahan MD Consults: 06/28/18 14:27 Critical Care Consult Stat Comment: Consulting Provider: Chris Edge Consulting Physician: Chris Edge Reason for Consult: DKA 06/28/18 17:52 Diabetic Education Referral Routine Comment: Physician Instructions: Reason For Exam: diabetic education 06/28/18 21:37 Consult [Physician Consult] Routine Comment: Consulting Provider: Usha Domingo Consulting Physician: Usha Domingo Reason for Consult: DKA Time Spent in preparation of Discharge (in minutes): 60 Diagnosis - Discharge Diagnosis (1) DKA (diabetic ketoacidoses) Status: Acute Hospital Course - Lab Results Lab Results: Micro Results 06/28/18 17:45 Naris MRSA Culture (Admit) - Final MRSA NOT DETECTED Most Recent Lab Values WBC 8.4 10^3/uL (4.5-11.0) 06/28/18 12:34 RBC 4.25 10^6/uL (3.5-6.1) 06/28/18 12:34 Hgb 11.9 g/dL (14.0-18.0) L 06/28/18 12:34 Hct 36.3 % (42.0-52.0) L 06/28/18 12:34 MCV 85.4 fl (80.0-105.0) 06/28/18 12:34 MCH 28.0 pg (25.0-35.0) 06/28/18 12:34 MCHC 32.8 g/dl (31.0-37.0) 06/28/18 12:34 RDW 12.8 % (11.5-14.5) 06/28/18 12:34 Plt Count 254 10^3/uL (120.0-450.0) 06/28/18 12:34 MPV 8.5 fl (7.0-11.0) 06/28/18 12:34 Neut % (Auto) 75.4 % (50.0-68.0) H 06/28/18 12:34 Lymph % (Auto) 19.4 % (22.0-35.0) L 06/28/18 12:34 Harper % (Auto) 5.0 % (1.0-6.0) 06/28/18 12:34 Eos % (Auto) 0.1 % (1.5-5.0) L 06/28/18 12:34 Baso % (Auto) 0.1 % (0.0-3.0) 06/28/18 12:34 Lymph # (Auto) 1.6 (1.2-3.4) 06/28/18 12:34 Harper # (Auto) 0.4 (0.1-0.6) 06/28/18 12:34 Eos # (Auto) 0.0 (0.0-0.7) 06/28/18 12:34 Baso # (Auto) 0.01 K/mm3 (0.0-2.0) 06/28/18 12:34 Absolute Neuts (auto) 6.30 (1.4-6.5) 06/28/18 12:34 pCO2 40 mm/Hg (35-45) 06/28/18 12:20 pO2 120 mm/Hg (30-55) H 06/29/18 00:02 HCO3 21.6 mmol/L (21-28) 06/28/18 12:20 ABG pH 7.34 (7.35-7.45) L 06/28/18 12:20 ABG Total CO2 22.8 mmol.L (22-28) 06/28/18 12:20 ABG O2 Saturation 98.4 % (95-98) H 06/28/18 12:20 ABG Base Excess -3.9 mmol/L (-2.0-3.0) L 06/28/18 12:20 ABG Potassium 4.1 mmol/L (3.6-5.2) 06/28/18 12:20 VBG pH 7.43 (7.32-7.43) 06/29/18 00:02 VBG pCO2 46.0 (40-60) 06/29/18 00:02 VBG HCO3 30.5 mmol/l (21-28) H 06/29/18 00:02 VBG Total CO2 31.9 mmol.L (22-28) H 06/29/18 00:02 VBG O2 Sat (Calc) 99.6 % (40-65) H 06/29/18 00:02 VBG Base Excess 5.3 mmol/L (0.0-2.0) H 06/29/18 00:02 VBG Potassium 4.2 mmol/L (3.6-5.2) 06/29/18 00:02 Sodium 137.0 mmol/L (132-148) 06/29/18 00:02 Chloride 105.0 mmol/L (98-107) 06/29/18 00:02 Glucose 317 mg/dl (75-110) H 06/29/18 00:02 Lactate 1.0 mmol/L (0.7-2.1) 06/29/18 00:02 FiO2 21.0 % 06/29/18 00:02 Crit Value Called To Dl whitt md 06/28/18 12:20 Crit Value Called By Héctor sargent 06/28/18 12:20 Blood Gas Notified Time 1224 06/28/18 12:20 Sodium 137 mmol/L (132-148) 06/29/18 11:45 Potassium 4.0 mmol/L (3.6-5.0) 06/29/18 11:45 Chloride 102 mmol/L (98-107) 06/29/18 11:45 Carbon Dioxide 29 mmol/L (21-33) 06/29/18 11:45 Anion Gap 10 (10-20) 06/29/18 11:45 BUN 19 mg/dL (7-21) 06/29/18 11:45 Creatinine 0.6 mg/dl (0.8-1.5) L 06/29/18 11:45 Est GFR ( Amer) > 60 06/29/18 11:45 Est GFR (Non-Af Amer) > 60 06/29/18 11:45 POC Glucose (mg/dL) 80 mg/dL (65-110) 06/30/18 06:35 Random Glucose 85 mg/dL (70-110) 06/29/18 11:45 Calcium 8.9 mg/dL (8.4-10.5) 06/29/18 11:45 Phosphorus 5.0 mg/dL (2.5-4.5) H 06/28/18 12:34 Magnesium 1.5 mg/dL (1.7-2.2) L 06/29/18 04:15 Total Bilirubin 0.4 mg/dL (0.2-1.3) 06/29/18 04:15 AST 26 U/L (17-59) 06/29/18 04:15 ALT 31 U/L (7-56) 06/29/18 04:15 Alkaline Phosphatase 51 U/L (38-126) 06/29/18 04:15 Total Protein 6.3 g/dL (5.8-8.3) 06/29/18 04:15 Albumin 3.7 g/dL (3.0-4.8) 06/29/18 04:15 Globulin 2.6 gm/dL 06/29/18 04:15 Albumin/Globulin Ratio 1.4 (1.1-1.8) 06/29/18 04:15 Triglycerides 71 mg/dL (35-160) 06/29/18 04:15 Cholesterol 138 mg/dL (130-200) 06/29/18 04:15 LDL Cholesterol Direct 66 mg/dL (0-129) 06/29/18 04:15 HDL Cholesterol 53 mg/dL (29-60) 06/29/18 04:15 Lipase 73 U/L (23-300) 06/29/18 04:15 TSH 3rd Generation 2.67 mIU/mL (0.46-4.68) 06/29/18 04:15 Arterial Blood Potassium 4.1 mmol/L (3.6-5.2) 06/28/18 12:20 Venous Blood Potassium 4.2 mmol/L (3.6-5.2) 06/29/18 00:02 Urine Color Yellow (YELLOW) 06/28/18 14:00 Urine Appearance Clear (CLEAR) 06/28/18 14:00 Urine pH 6.0 (4.7-8.0) 06/28/18 14:00 Ur Specific Blanchard 1.015 (1.005-1.035) 06/28/18 14:00 Urine Protein 30 mg/dL (<30 mg/dL) H 06/28/18 14:00 Urine Glucose (UA) >=1000 mg/dL (NEGATIVE) 06/28/18 14:00 Urine Ketones 40 mg/dL (NEGATIVE) H 06/28/18 14:00 Urine Blood Small (NEGATIVE) H 06/28/18 14:00 Urine Nitrate Negative (NEGATIVE) 06/28/18 14:00 Urine Bilirubin Negative (NEGATIVE) 06/28/18 14:00 Urine Urobilinogen 0.2 E.U./dL (<1 E.U./dL) 06/28/18 14:00 Ur Leukocyte Esterase Negative Keon/uL (NEGATIVE) 06/28/18 14:00 Urine RBC 5 - 10 /hpf (0-2) H 06/28/18 14:00 Urine WBC 0 - 2 /hpf (0-6) 06/28/18 14:00 Ur Epithelial Cells None /hpf (0-5) 06/28/18 14:00 Urine Bacteria Small /hpf (NONE) 06/28/18 14:00 Urine Opiates Screen Negative (NEGATIVE) 06/28/18 14:00 Urine Methadone Screen Negative (NEGATIVE) 06/28/18 14:00 Ur Barbiturates Screen Negative (NEGATIVE) 06/28/18 14:00 Ur Phencyclidine Scrn Negative (NEGATIVE) 06/28/18 14:00 Ur Amphetamines Screen Negative (NEGATIVE) 06/28/18 14:00 U Benzodiazepines Scrn Negative (NEGATIVE) 06/28/18 14:00 U Oth Cocaine Metabols Negative (NEGATIVE) 06/28/18 14:00 U Cannabinoids Screen Positive (NEGATIVE) H 06/28/18 14:00 Alcohol, Quantitative < 10 mg/dL (0-10) 06/28/18 12:34 B-Hydroxybutyrate 4.39 mM (0.02-0.27) H 06/28/18 12:34 - Hospital Course Hospital Course: This is a 32 year old male with a PMH of Type 1 DM who presented to [facility] ED on 06/27 with complaints of nausea/vomiting and decreased appetite. Upon presentation patient reported he has been having increased urination and multiple episodes of NBNB emesis over the past 2 days. He reports that 3 days ago he head run out of his insulin. EMS was called for patient who noted his sugars to be "high." Labs were significant for DKA, patient was treated in the ICU with IV fluids, Insulin drip. Anion gap closed, and patient was transitioned to subcutaneous regimen with input from Endocrinology, Dr Domingo. Patient's blood sugar are now 80-200s. Patient's right big toe nail fell off, patient was advised to follow up with Podiatry outpatient in 3-5 days. The toe was wrapped around in dressing. Patient was taught on how to use insulin pens by the bedside nurse. His technique was observed and nurse witnessed that he is correctly using the pen. Patient is being disharged on Basaglar insulin 20 units at bedtimes and Admelog 8 units subq AC. Patient was explicitly explained the insulin regimen, the need to closely monitor blood sugars. Glucometer, test strips and needles are sent to [facility] in [facility]. Patient is to also contact the hospital educator, Ivanna Guadarrama, on Sunday (July 02) for any diabetic supply needs. Patient will also follow up with his PMD in 3-5 days. Patient is also advised to go to an [facility] clinical programmer for proper management of his diabetes. Case seen and discussed with Dr Milian. Discharge Exam - Head Exam Head Exam: ATRAUMATIC, NORMOCEPHALIC - Eye Exam Eye Exam: EOMI, PERRL. absent: Conjunctival injection, Nystagmus, Scleral icterus Pupil Exam: NORMAL ACCOMODATION, PERRL. absent: Irregular, Miosis, Unequal - ENT Exam ENT Exam: Mucous Membranes Moist - Neck Exam Neck exam: Full Rom - Respiratory Exam Respiratory Exam: Clear to PA & Lateral, NORMAL BREATHING PATTERN. absent: Accessory Muscle Use, Chest Wall Tenderness, Respiratory Distress, Stridor - Cardiovascular Exam Cardiovascular Exam: RRR, +S1, +S2. absent: Systolic Murmur - GI/Abdominal Exam GI & Abdominal Exam: Normal Bowel Sounds, Soft. absent: Diminished Bowel Sounds, Distended, Mass, Rebound, Tenderness - Extremities Exam Additional comments: + Right 1st toe covered in large band-aid, c/d/i. + sensation and motor strength 5/5 - Back Exam Back exam: NORMAL INSPECTION - Neurological Exam Neurological exam: Alert, Oriented x3 - Psychiatric Exam Psychiatric exam: Normal Affect, Normal Mood - Skin Skin Exam: Normal Color, Warm Discharge Plan - Discharge Medications Prescriptions: Blood Sugar Diagnostic [Blood Glucose Test Strip] 1 each MC TID 30 Days #90 strip Blood-Glucose Meter [Blood Glucose Meter] 1 each MC TID 30 Days #1 each Insulin Glargine,Hum.rec.anlog [Basaglar Kwikpen U-100] 20 unit SQ HS #4 insuln.pen Insulin Lispro [Admelog Solostar] 8 unit SQ AC #4 insuln.pen Pen Needle, Diabetic [Caretouch Pen Needle] 1 each MC TID 30 Days #90 dis.needle - Follow Up Plan Condition: GUARDED Disposition: HOME/ ROUTINE Instructions: Low Blood Sugar, Adult (DC), Hyperglycemia, Adult (DC), Diabetic Ketoacidosis (DC), How to Use an Insulin Pen Additional Instructions: Follow up with your primary care doctor Dr Mahan in 3-5 days of discharge. Follow up with Tutor within 1 week. You will be taking the following medications at home: Basaglar 20 units subcutaneously at bedtime. Admelog 8 units subcutaneouly with each meal. You were taught in the hospital how to use the insulin pens. You are also given supplies for your diabetes' testing: glucometer, test strips, needles. Please contact hospital educator, Ivanna Guadarrama, on Sunday at [phone], if you are not able to obtain your glucometer through your insurance. Follow up with Podiatry for your foot exam in 3-5 days. Return to the Emergency room for any new or worsening symptoms. Referrals: Fred Mahan MD [Primary Care Provider] - Usha Domingo MD [Medical Doctor] - Nell Harkins DPM [Staff Provider] - <Kathy Milian - Last Filed: 07/01/18 13:22> Provider - Provider Date of Admission: 06/28/18 14:15 Attending physician: Moisés Bain MD Primary care physician: Fred Mahan MD Consults: 06/28/18 14:27 Critical Care Consult Stat Comment: Consulting Provider: Chris Edge Consulting Physician: Chris Edge Reason for Consult: DKA 06/28/18 17:52 Diabetic Education Referral Routine Comment: Physician Instructions: Reason For Exam: diabetic education 06/28/18 21:37 Consult [Physician Consult] Routine Comment: Consulting Provider: Usha Domingo Consulting Physician: Usha Domingo Reason for Consult: DKA Hospital Course - Lab Results Lab Results: Micro Results 06/28/18 17:45 Naris MRSA Culture (Admit) - Final MRSA NOT DETECTED Most Recent Lab Values WBC 8.4 10^3/uL (4.5-11.0) 06/28/18 12:34 RBC 4.25 10^6/uL (3.5-6.1) 06/28/18 12:34 Hgb 11.9 g/dL (14.0-18.0) L 06/28/18 12:34 Hct 36.3 % (42.0-52.0) L 06/28/18 12:34 MCV 85.4 fl (80.0-105.0) 06/28/18 12:34 MCH 28.0 pg (25.0-35.0) 06/28/18 12:34 MCHC 32.8 g/dl (31.0-37.0) 06/28/18 12:34 RDW 12.8 % (11.5-14.5) 06/28/18 12:34 Plt Count 254 10^3/uL (120.0-450.0) 06/28/18 12:34 MPV 8.5 fl (7.0-11.0) 06/28/18 12:34 Neut % (Auto) 75.4 % (50.0-68.0) H 06/28/18 12:34 Lymph % (Auto) 19.4 % (22.0-35.0) L 06/28/18 12:34 Harper % (Auto) 5.0 % (1.0-6.0) 06/28/18 12:34 Eos % (Auto) 0.1 % (1.5-5.0) L 06/28/18 12:34 Baso % (Auto) 0.1 % (0.0-3.0) 06/28/18 12:34 Lymph # (Auto) 1.6 (1.2-3.4) 06/28/18 12:34 Harper # (Auto) 0.4 (0.1-0.6) 06/28/18 12:34 Eos # (Auto) 0.0 (0.0-0.7) 06/28/18 12:34 Baso # (Auto) 0.01 K/mm3 (0.0-2.0) 06/28/18 12:34 Absolute Neuts (auto) 6.30 (1.4-6.5) 06/28/18 12:34 pCO2 40 mm/Hg (35-45) 06/28/18 12:20 pO2 120 mm/Hg (30-55) H 06/29/18 00:02 HCO3 21.6 mmol/L (21-28) 06/28/18 12:20 ABG pH 7.34 (7.35-7.45) L 06/28/18 12:20 ABG Total CO2 22.8 mmol.L (22-28) 06/28/18 12:20 ABG O2 Saturation 98.4 % (95-98) H 06/28/18 12:20 ABG Base Excess -3.9 mmol/L (-2.0-3.0) L 06/28/18 12:20 ABG Potassium 4.1 mmol/L (3.6-5.2) 06/28/18 12:20 VBG pH 7.43 (7.32-7.43) 06/29/18 00:02 VBG pCO2 46.0 (40-60) 06/29/18 00:02 VBG HCO3 30.5 mmol/l (21-28) H 06/29/18 00:02 VBG Total CO2 31.9 mmol.L (22-28) H 06/29/18 00:02 VBG O2 Sat (Calc) 99.6 % (40-65) H 06/29/18 00:02 VBG Base Excess 5.3 mmol/L (0.0-2.0) H 06/29/18 00:02 VBG Potassium 4.2 mmol/L (3.6-5.2) 06/29/18 00:02 Sodium 137.0 mmol/L (132-148) 06/29/18 00:02 Chloride 105.0 mmol/L (98-107) 06/29/18 00:02 Glucose 317 mg/dl (75-110) H 06/29/18 00:02 Lactate 1.0 mmol/L (0.7-2.1) 06/29/18 00:02 FiO2 21.0 % 06/29/18 00:02 Crit Value Called To Dl whitt md 06/28/18 12:20 Crit Value Called By Héctor sargent 06/28/18 12:20 Blood Gas Notified Time 1224 06/28/18 12:20 Sodium 137 mmol/L (132-148) 06/29/18 11:45 Potassium 4.0 mmol/L (3.6-5.0) 06/29/18 11:45 Chloride 102 mmol/L (98-107) 06/29/18 11:45 Carbon Dioxide 29 mmol/L (21-33) 06/29/18 11:45 Anion Gap 10 (10-20) 06/29/18 11:45 BUN 19 mg/dL (7-21) 06/29/18 11:45 Creatinine 0.6 mg/dl (0.8-1.5) L 06/29/18 11:45 Est GFR ( Amer) > 60 06/29/18 11:45 Est GFR (Non-Af Amer) > 60 06/29/18 11:45 POC Glucose (mg/dL) 282 mg/dL (65-110) H 06/30/18 11:11 Random Glucose 85 mg/dL (70-110) 06/29/18 11:45 Hemoglobin A1c 10.3 % (4.2-6.5) H 06/29/18 04:15 Calcium 8.9 mg/dL (8.4-10.5) 06/29/18 11:45 Phosphorus 5.0 mg/dL (2.5-4.5) H 06/28/18 12:34 Magnesium 1.5 mg/dL (1.7-2.2) L 06/29/18 04:15 Total Bilirubin 0.4 mg/dL (0.2-1.3) 06/29/18 04:15 AST 26 U/L (17-59) 06/29/18 04:15 ALT 31 U/L (7-56) 06/29/18 04:15 Alkaline Phosphatase 51 U/L (38-126) 06/29/18 04:15 Total Protein 6.3 g/dL (5.8-8.3) 06/29/18 04:15 Albumin 3.7 g/dL (3.0-4.8) 06/29/18 04:15 Globulin 2.6 gm/dL 06/29/18 04:15 Albumin/Globulin Ratio 1.4 (1.1-1.8) 06/29/18 04:15 Triglycerides 71 mg/dL (35-160) 06/29/18 04:15 Cholesterol 138 mg/dL (130-200) 06/29/18 04:15 LDL Cholesterol Direct 66 mg/dL (0-129) 06/29/18 04:15 HDL Cholesterol 53 mg/dL (29-60) 06/29/18 04:15 Lipase 73 U/L (23-300) 06/29/18 04:15 TSH 3rd Generation 2.67 mIU/mL (0.46-4.68) 06/29/18 04:15 Arterial Blood Potassium 4.1 mmol/L (3.6-5.2) 06/28/18 12:20 Venous Blood Potassium 4.2 mmol/L (3.6-5.2) 06/29/18 00:02 Urine Color Yellow (YELLOW) 06/28/18 14:00 Urine Appearance Clear (CLEAR) 06/28/18 14:00 Urine pH 6.0 (4.7-8.0) 06/28/18 14:00 Ur Specific Blanchard 1.015 (1.005-1.035) 06/28/18 14:00 Urine Protein 30 mg/dL (<30 mg/dL) H 06/28/18 14:00 Urine Glucose (UA) >=1000 mg/dL (NEGATIVE) 06/28/18 14:00 Urine Ketones 40 mg/dL (NEGATIVE) H 06/28/18 14:00 Urine Blood Small (NEGATIVE) H 06/28/18 14:00 Urine Nitrate Negative (NEGATIVE) 06/28/18 14:00 Urine Bilirubin Negative (NEGATIVE) 06/28/18 14:00 Urine Urobilinogen 0.2 E.U./dL (<1 E.U./dL) 06/28/18 14:00 Ur Leukocyte Esterase Negative Keon/uL (NEGATIVE) 06/28/18 14:00 Urine RBC 5 - 10 /hpf (0-2) H 06/28/18 14:00 Urine WBC 0 - 2 /hpf (0-6) 06/28/18 14:00 Ur Epithelial Cells None /hpf (0-5) 06/28/18 14:00 Urine Bacteria Small /hpf (NONE) 06/28/18 14:00 Urine Opiates Screen Negative (NEGATIVE) 06/28/18 14:00 Urine Methadone Screen Negative (NEGATIVE) 06/28/18 14:00 Ur Barbiturates Screen Negative (NEGATIVE) 06/28/18 14:00 Ur Phencyclidine Scrn Negative (NEGATIVE) 06/28/18 14:00 Ur Amphetamines Screen Negative (NEGATIVE) 06/28/18 14:00 U Benzodiazepines Scrn Negative (NEGATIVE) 06/28/18 14:00 U Oth Cocaine Metabols Negative (NEGATIVE) 06/28/18 14:00 U Cannabinoids Screen Positive (NEGATIVE) H 06/28/18 14:00 Alcohol, Quantitative < 10 mg/dL (0-10) 06/28/18 12:34 B-Hydroxybutyrate 4.39 mM (0.02-0.27) H 06/28/18 12:34 HIV 1&2 Antibody Screen Negative (NEGATIVE) 06/29/18 04:15 Attending/Attestation - Attestation I have personally seen and examined this patient.: Yes I have fully participated in the care of the patient.: Yes I have reviewed all pertinent clinical information, including history, physical exam and plan: Yes Notes (Text): 07/01/18 13:17 Attending note; Patient seen and examined with resident. Patient is a long-term diabetic admitted with DKA. Strongly advised to follow-up with fingerstick. Dietary education given. Patient is a 32 year old male with past medical history significant for type 1 insulin dependent diabetes is admitted with DKA. 1. DKA. Type 1 DM. S/P insulin drip Patient is currently on Levemir. Patient tolerating diet. Tutor recommendations appreciated. Patient is educated about how to inject insulin from pen. The technique was observed and nurse witnessed that he is correctly using the pen. Patient is being discharged on Basaglar insulin 20 units at bedtimes and Admelog 8 units subq AC. Patient is advised to keep a fingerstick log at home and follow-up with primary for adjustment of insulin. 2. Mild Anemia. Unsure of baseline H&H. No signs of acute bleeding. Continue to monitor for now. 3. Marijuana use. UDS positive for cannabinoids. Patient counseled on cessation. Outpatient podiatry evaluation recommended. Dietary education given. Diabetic nurse education given. Case was discussed in detail with the patient regarding current diagnosis, study results, and treatment plan. All questions answered. Patient will be discharged home today. Insulin by the bedside. Patient will follow up with PMD Dr. Mahan.
--- NOTE | 2018-07-02 09:22 | PN ---
DATE: 06/30/2018 ENDOCRINOLOGY FOLLOWUP NOTE LOCATION: Room 573. SUBJECTIVE: This is a 32-year-old male with recent uncontrolled type 1 insulin-dependent diabetes, presenting here with hyperosmolar hyperglycemic state and dehydration related to drug omission of his insulin therapy and is now being followed closely for metabolic management. His glycemic levels are fluctuating but improved and the glucose levels today have ranged from 80 to 177 mg/dL. However, the bedtime glucose was 320 mg/dL. LABORATORY DATA: His chemistry showed a BUN of 19, sodium 137, potassium 4, chloride 102, CO2 of 29, glucose 85 and creatinine 0.6. ASSESSMENT: This is a 32-year-old male with uncontrolled and decompensated type 1 insulin-dependent diabetes, presenting here with hyperosmolar hyperglycemic state and dehydration with mild ketosis and is now being followed closely for metabolic management. PLAN OF MANAGEMENT: We will continue the modified basal and bolus insulin regimen, especially with the variability of his oral intake as noted. We will continue his Levemir given as 20 units subcutaneously at bedtime daily as given. However, his insurance company allows BASAGLAR, which is also the same family as Levemir therapy as given. We will also continue the Humalog, which should be given as ADMELOG given at 8 units t.i.d. before meals as ordered. He will follow with his medical doctor for ongoing diabetic and medical management. Usha Domingo MD
== END 2018-06-30 13:46 | disposition home or self-care (01) | DRG 295 ==
LOC: ED 11:47 → ERH 14:15 → MERGE 14:15 → ERH 14:45 → CCU 16:51 → 5RSO 06-29 11:32
PROVIDERS: ADMIT Internal Medicine; ATTEND Internal Medicine
DX: E10.10 Type 1 diabetes mellitus with ketoacidosis without coma (principal); E86.0 Dehydration; E83.42 Hypomagnesemia; F12.90 Cannabis use, unspecified, uncomplicated; D64.9 Anemia, unspecified; Z71.3 Dietary counseling and surveillance; Z82.49 Family history of ischemic heart disease and other diseases of the circulatory system